=== PATIENT | male | born 1985 | race Caucasian/White ===

== ENCOUNTER → 2016-02-21 | Outpatient (CLI) | payer BC ==
--- NOTE | 2016-02-21 17:27 | CT ---
EXAMINATION TYPE: CT chest wo con DATE OF EXAM: 02/21/2016 1:59 PM COMPARISON: NONE HISTORY: chronic obstructive asthma CT DLP: 169.1 mGycm, Automated exposure control for dose reduction was used. CONTRAST: None TECHNIQUE: Axial images were obtained at 5 mm thick sections. Reconstructed images are reviewed on [employer] computer in the coronal plane. FINDINGS: Portion of the thyroid visualized is normal. No suspicious lung nodules or focal infiltrates are present. Emphysematous changes appear to be present. Some thickening of the bronchi may be present which can b e compatible with chronic asthma. No discrete masses are evident. No suspicious nodules are identifie d. No enlarged mediastinal or hilar adenopathy is evident. The ascending aorta diameter at the level o f the main pulmonary artery is 2.7 cm. The main pulmonary artery diameter at the bifurcation is 2.[address] sections are obtained through the upper abdomen. Abdomen is essentially unremarkable. IMPRESSIONS: 1. Obstructive lung findings
== END | disposition home or self-care (01) ==
LOC: CPPFTMAIN 13:03
PROVIDERS: ATTEND Family Medicine
DX: J44.9 Chronic obstructive pulmonary disease, unspecified (principal); F17.200 Nicotine dependence, unspecified, uncomplicated
CPT/HCPCS: 71250; 94060; 94726; 94729

== ENCOUNTER 2016-07-20 11:55 | Emergency (ER) | payer BC ==
[2016-07-20 11:59] VITALS: BP 143/90; TEMP 98.8
[2016-07-20] MEDS ORDERED: IPRATROPIUM-ALBUTEROL 3 ML NEB INHALATION STA (13:20)
[2016-07-20 13:28] VITALS: RESP 20
--- NOTE | 2016-07-20 13:34 | XR ---
EXAMINATION TYPE: XR chest 2V DATE OF EXAM: 07/20/2016 COMPARISON: Chest x-ray 12/12/[address] 02/21/2016 HISTORY: Cough and pain TECHNIQUE: Frontal and lateral views of the chest are obtained. FINDINGS: There is no focal air space opacity, pleural effusion, or pneumothorax seen. The cardiac silhouette size is within normal limits. There are prominent lung volumes compatible with emphysema. The osseous structures are intact. IMPRESSION: No acute cardiopulmonary process.
--- NOTE | 2016-07-20 13:45 | ED ---
SOB HPI - General Chief Complaint: Shortness of Breath Stated Complaint: congestion Time Seen by Provider: 07/20/16 13:13 Source: patient, RN notes reviewed Mode of arrival: ambulatory Limitations: no limitations - History of Present Illness Initial Comments: 30-year-old male presents emergency Department chief complaint shortness of breath. Patient states she has asthma and has been coughing and having increased shortness breath over the last few days. Patient states she had a fever 101.5 last night. Patient states she also has a sore throat. Patient denies any sinus congestion, ear pain. Patient had no sick contacts. Patient continues to smoke even though he has asthma. He does have relief of his shortness of breath with his inhaler. Patient states that he tried some over- the-counter cough medication no relief. - Related Data Home Medications Medication Instructions Recorded Confirmed Albuterol Inhaler [Ventolin Hfa 2 puff INHALATION RT-Q6H PRN 01/24/16 01/24/16 Inhaler] Ranitidine HCl [Zantac] 75 mg PO BID 01/24/16 01/24/16 Previous Rx's Medication Instructions Recorded oxyCODONE ER [OxyCONTIN] 10 mg PO Q12HR PRN #10 tab 01/25/16 Azithromycin [Zithromax Z-pack] 0 mg PO DIRECTED #1 pack 07/20/16 methylPREDNISolone [Medrol Dose 4 mg PO DIRECTED #1 pack 07/20/16 Pack] Allergies Allergy/AdvReac Type Severity Reaction Status Date / Time meperidine HCl [From Demerol] Allergy Rash/Hives Verified 07/20/16 11:59 Review of Systems ROS Statement: Those systems with pertinent positive or pertinent negative responses have been documented in the HPI. ROS Other: All systems not noted in ROS Statement are negative. Past Medical History Past Medical History: Asthma, COPD Additional Past Medical History / Comment(s): hep c History of Any Multi-Drug Resistant Organisms: None Reported Past Surgical History: Cholecystectomy, Tonsillectomy Past Psychological History: No Psychological Hx Reported Smoking Status: Current every day smoker Past Alcohol Use History: None Reported Past Drug Use History: None Reported General Exam Limitations: no limitations General appearance: alert, in no apparent distress Head exam: Present: atraumatic, normocephalic, normal inspection Eye exam: Present: normal appearance, PERRL, EOMI. Absent: scleral icterus, conjunctival injection, periorbital swelling ENT exam: Present: mucous membranes moist, TM's normal bilaterally, normal external ear exam. Absent: normal exam, normal oropharynx (Mild erythema posterior pharynx) Neck exam: Present: normal inspection, full ROM. Absent: tenderness, meningismus, lymphadenopathy Respiratory exam: Present: wheezes. Absent: normal lung sounds bilaterally, respiratory distress, rales, rhonchi, stridor Cardiovascular Exam: Present: regular rate, normal rhythm, normal heart sounds. Absent: systolic murmur, diastolic murmur, rubs, gallop, clicks Neurological exam: Present: alert, oriented X3, CN II-XII intact Skin exam: Present: warm, dry, intact, normal color. Absent: rash Course Vital Signs 07/20/16 07/20/16 11:56 13:27 Temperature 98.8 F Pulse Rate 92 85 Respiratory 18 20 Rate Blood Pressure 143/90 O2 Sat by Pulse 93 L 95 Oximetry Medical Decision Making - Medical Decision Making 30-year-old male presented for shortness breath, sore throat. Patient was given DuoNeb treatment in emergency department. He does feel improved after this. Patient's strep is negative this time. Patient was treated for acute asthma exacerbation with bronchitis. Patient was started on azithromycin, steroids. Patient is requesting cough syrup and which she'll be given promethazine with codeine. Return parameters were discussed. Patient counseled in detail greater than 3 months for smoking cessation. - Lab Data Lab Results 07/20/16 Range/Units 12:45 Group A Strep Rapid Negative (Negative) Disposition Clinical Impression: Asthmatic bronchitis, Acute pharyngitis Disposition: HOME SELF-CARE Condition: Stable Instructions: Acute Bronchitis (ED) Additional Instructions: Please return to the Emergency Department if symptoms worsen or any other concerns. Please stop smoking Prescriptions: Azithromycin [Zithromax Z-pack] 0 mg PO DIRECTED #1 pack methylPREDNISolone [Medrol Dose Pack] 4 mg PO DIRECTED #1 pack Referrals: Ashli Olivera MD [Primary Care Provider] - 1-2 days Time of Disposition: 13:45
[2016-07-20 13:51] VITALS: PULSE 84
== END 2016-07-20 13:50 | disposition home or self-care (01) ==
LOC: EC 11:55
DX: J45.909 Unspecified asthma, uncomplicated (principal); J02.9 Acute pharyngitis, unspecified; F17.200 Nicotine dependence, unspecified, uncomplicated; Z88.5 Allergy status to narcotic agent; Z79.899 Other long term (current) drug therapy
CPT/HCPCS: 71020; 87081; 87430; 94640; 99285

== ENCOUNTER → 2016-09-11 | Outpatient (CLI) | payer BC ==
[2016-09-11 11:09] LABS: Basophils % (A) 0 %; CH 30.5; CHCM 35.5; Eosinophils # (A) 0.1 k/uL (0-0.7); Eosinophils % (A) 2 %; HCT 47.5 % (39.0-53.0); HGB 16.6 gm/dL (13.0-17.5); Luc # (Auto) 0.12; Luc % (Auto) 2; Lymphocytes # (A) 1.8 k/uL (1.0-4.8); Lymphocytes % (A) 33 %; MCH 30.1 pg (25.0-35.0); MCHC 34.9 g/dL (31.0-37.0); MCV 86.3 fL (80.0-100.0); Mean Platelet Volume 7.7; Monocytes # (A) 0.4 k/uL (0-1.0); Monocytes % (A) 6 %; Neutrophils # (A) 3.1 k/uL (1.3-7.7); Neutrophils % (A) 56 %; RBC 5.51 m/uL (4.30-5.90); WBC 5.5 k/uL (3.8-10.6); WBC (Perox) 5.34
[2016-09-11 11:41] LABS: Bilirubin, Delta 0.3 mg/dL (0.0-0.2); Total Bilirubin 0.5 mg/dL (0.2-1.3); Total Protein 7.1 g/dL (6.3-8.2)
== END | disposition home or self-care (01) ==
LOC: LABWHC1 10:08
PROVIDERS: ATTEND Physician Assistant
DX: B18.2 Chronic viral hepatitis C (principal)
CPT/HCPCS: 36415; 80076; 85025; 87522

== ENCOUNTER → 2016-10-17 | Outpatient (CLI) | payer BC | LOC: LABWHC1 10:17 | PROVIDERS: ATTEND Physician Assistant | DX: B18.2 Chronic viral hepatitis C (principal) | CPT/HCPCS: 36415 ==

== ENCOUNTER 2016-12-10 21:19 | Emergency (ER) | payer BC ==
[2016-12-10 21:23] VITALS: BP 168/103; PULSE 91; RESP 16; TEMP 98.3
[2016-12-10] MEDS ORDERED: KETOROLAC 30 MG/ML 1 ML VIAL IM STA (22:00)
--- NOTE | 2016-12-10 22:08 | ED ---
Back Pain HPI - General Chief Complaint: Back Pain/Injury Stated Complaint: Back Pain Time Seen by Provider: 12/10/16 21:57 Source: patient, RN notes reviewed Limitations: no limitations - History of Present Illness Initial Comments: This is a 31-year-old male who presents to the emergency department with chief complaint of acute on chronic back pain. Patient denies any specific injury or trauma. He reports that when he woke up this morning the thoracic region of his back was painful. He describes the pain as sharp and is made worse with movement. Patient denies any numbness or tingling to lower extremities. He denies saddle paresthesias and loss of bladder or bowel function. He denies IV drug use. Denies fever, chills, chest pain, shortness of breath, abdominal pain , nausea or vomiting, constipation or diarrhea, dysuria or hematuria, numbness or tingling, headache or vision changes. - Related Data Home Medications Medication Instructions Recorded Confirmed Albuterol Inhaler [Ventolin Hfa 2 puff INHALATION RT-Q6H PRN 01/24/16 01/24/16 Inhaler] Ranitidine HCl [Zantac] 75 mg PO BID 01/24/16 01/24/16 Previous Rx's Medication Instructions Recorded oxyCODONE ER [OxyCONTIN] 10 mg PO Q12HR PRN #10 tab 01/25/16 Azithromycin [Zithromax Z-pack] 0 mg PO DIRECTED #1 pack 07/20/16 Promethaz-Cod 6.25-10 mg/5 ml 5 ml PO Q6HR PRN #120 ml 07/20/16 [Phenergan with Codeine] methylPREDNISolone [Medrol Dose 4 mg PO DIRECTED #1 pack 07/20/16 Pack] Ibuprofen 600 mg PO Q6HR #30 tablet 12/10/16 Allergies Allergy/AdvReac Type Severity Reaction Status Date / Time meperidine HCl [From Demerol] Allergy Rash/Hives Verified 12/10/16 21:23 Review of Systems ROS Statement: Those systems with pertinent positive or pertinent negative responses have been documented in the HPI. ROS Other: All systems not noted in ROS Statement are negative. Past Medical History Past Medical History: Asthma, COPD Additional Past Medical History / Comment(s): hep c History of Any Multi-Drug Resistant Organisms: None Reported Past Surgical History: Cholecystectomy, Tonsillectomy Past Psychological History: No Psychological Hx Reported Smoking Status: Current every day smoker Past Alcohol Use History: None Reported Past Drug Use History: None Reported General Exam - General Exam Comments Initial Comments: General: Awake and alert, well-developed; in no apparent distress. Hunched over on ED stretcher. HEENT: Head atraumatic, normocephalic. Pupils are equal, round and reactive to light. Extraocular movements intact. Neck: Supple. Normal ROM. Cardiovascular: Regular rate and rhythm. No murmurs, rubs or gallops. Chest symmetrical. Respiratory: Lungs clear to auscultation bilaterally. No wheezes, rales or rhonchi. Normal respiratory effort with no use of accessory muscles. Musculoskeletal: Bony point tenderness with palpation of the thoracic vertebrae. No paraspinous muscle tenderness. Intact active range of motion, however pain is elicited with flexion and extension. Pulses 2+ equal and palpable bilaterally. Skin: [place], warm and dry without rashes or lesions. Neurological: Alert and oriented x3. CN II-XII grossly intact. Speech is fluent and answers are appropriate. No focal neuro deficits. Psychiatric: Normal mood and affect. No overt signs of depression or anxiety noted. Limitations: no limitations Course Vital Signs 12/10/16 21:20 Temperature 98.3 F Pulse Rate 91 Respiratory 16 Rate Blood Pressure 168/103 O2 Sat by Pulse 98 Oximetry Medical Decision Making - Medical Decision Making This is a 31-year-old male who presents to the emergency department with chief complaint of acute on chronic back pain. Thoracic vertebrate x-ray reveals no acute abnormalities. Case was discussed with attending physician, Dr. Romeo. Patient was made aware of findings. He will be discharged home with prescription for ibuprofen 600mg. He is to follow-up with his family doctor within 1-2 days. He is in no acute distress at this time and is in agreement to the plan. All questions were answered. - Radiology Data Radiology results: report reviewed Thoracic spine findings: The thoracic vertebrae have fairly normal alignment. Posterior elements are intact. There is no paraspinal mass. I see no compression fracture. Impression: Negative thoracic spine exam. Minimal spurring noted. Disposition Clinical Impression: Thoracic back pain Disposition: HOME SELF-CARE Condition: Good Instructions: Back Pain (ED) Additional Instructions: Please take medications as prescribed. Please follow up with primary care provider within 1-2 days. Return to emergency department if symptoms should worsen or any concerns arise. Prescriptions: Ibuprofen 600 mg PO Q6HR #30 tablet Referrals: Ahsli Olivera MD [Primary Care Provider] - 1-2 days Time of Disposition: 22:41
--- NOTE | 2016-12-10 22:33 | XR ---
EXAMINATION TYPE: XR thoracic spine 2V DATE OF EXAM: 12/10/2016 COMPARISON: NONE HISTORY: Back pain TECHNIQUE: 4 views FINDINGS: The thoracic vertebra have fairly normal alignment. Posterior elements are intact. There is no paraspinal mass. I see no compression fracture. IMPRESSION: Negative thoracic spine exam. Minimal spurring noted.
== END 2016-12-10 22:48 | disposition home or self-care (01) ==
LOC: EC 21:19
DX: M54.6 Pain in thoracic spine (principal); F17.200 Nicotine dependence, unspecified, uncomplicated; Z79.899 Other long term (current) drug therapy; Z88.5 Allergy status to narcotic agent
CPT/HCPCS: 72070; 99283; 96372; J1885

== ENCOUNTER → 2017-02-20 | Outpatient (CLI) | payer BC ==
[2017-02-20 15:49] LABS: Basophils % (A) 0 %; Eosinophils # (A) 0.2 k/uL (0-0.7); Eosinophils % (A) 2 %; HCT 51.5 % (39.0-53.0); HGB 17.1 gm/dL (13.0-17.5); Lymphocytes # (A) 3.3 k/uL (1.0-4.8); Lymphocytes % (A) 41 %; MCH 29.5 pg (25.0-35.0); MCHC 33.3 g/dL (31.0-37.0); MCV 88.6 fL (80.0-100.0); Mean Platelet Volume 7.4; Monocytes # (A) 0.5 k/uL (0-1.0); Monocytes % (A) 7 %; Neutrophils # (A) 3.9 k/uL (1.3-7.7); Neutrophils % (A) 48 %; Platelet Count 220 k/uL (150-450); RBC 5.81 m/uL (4.30-5.90); RDW 14.4 % (11.5-15.5)
[2017-02-20 16:00] LABS: Albumin 4.6 g/dL (3.5-5.0); Bilirubin, Delta 0.2 mg/dL (0.0-0.2); Bilirubin,Unconjugated 0.2 mg/dL (0.0-1.1); Total Bilirubin 0.4 mg/dL (0.2-1.3); Total Protein 7.8 g/dL (6.3-8.2)
[2017-02-21 14:57] LABS: Hepatits C Virus RNA Not detected (Not detected); Hepatits C Virus RNA, Quant <12 IU/mL (<12); LOG HCV IU/mL <1.08 (<1.08)
== END | disposition home or self-care (01) ==
LOC: LABWHC1 14:59
PROVIDERS: ATTEND Physician Assistant
DX: B18.2 Chronic viral hepatitis C (principal)
CPT/HCPCS: 36415; 80076; 85025; 87522

== ENCOUNTER 2017-04-01 06:26 | Emergency (ER) | payer BC ==
[2017-04-01 06:33] VITALS: PULSE 75
[2017-04-01] MEDS ORDERED: ONDANSETRON 4 MG/2 ML VIAL IVP STA (06:42)
[2017-04-01] MEDS ORDERED: SODIUM CHLORIDE 0.9% 500 ML IV STA (06:42)
[2017-04-01] MEDS ORDERED: MAG HYDROX/AL HYDROX/SIMETH 30 ML, HYOSCYAMINE ELIXIR 10 ML, CIMETIDINE HCL 300 MG, LID... PO STA ×4 (06:43)
--- NOTE | 2017-04-01 06:47 | ED ---
General Adult HPI - General Source: patient, RN notes reviewed Mode of arrival: ambulatory Limitations: no limitations <Ulisses Spicer - Last Filed: 04/01/17 06:48> <Rob Romeo - Last Filed: 04/01/17 08:39> - General Chief complaint: Abdominal Pain Stated complaint: ABDOMINAL PAIN, HEARTBURN Time Seen by Provider: 04/01/17 06:30 - History of Present Illness Initial comments: This is a 31-year-old male presents emergency Department complaining of having epigastric abdominal pain and heartburn for a year. Patient states about 6 months ago he saw a senior underwriting assistant who gave him Prilosec is been taking ever since. Patient states he still doesn't help he still gets intermittent abdominal pain. Patient denies any vomiting but has had nausea. Patient denies any lower abdominal pain. Patient states the epigastric pain does not radiate anywhere. Patient denies any chest pain palpitations difficulty breathing or shortness of breath. Patient denies any recent fever chills. (Ulisses Spicer) - Related Data Home Medications Medication Instructions Recorded Confirmed Albuterol Inhaler [Ventolin Hfa 1 - 2 puff INHALATION RT-Q6H PRN 01/24/16 Inhaler] Omeprazole [PriLOSEC] 20 mg PO AC-BRKFST 04/01/17 04/01/17 Varenicline [Chantix Starter Pack] 0.5 mg PO DIRECTED 04/01/17 04/01/17 Allergies Allergy/AdvReac Type Severity Reaction Status Date / Time meperidine HCl [From Demerol] Allergy Rash/Hives Verified 04/01/17 07:23 Review of Systems ROS Other: All systems not noted in ROS Statement are negative. <Ulisses Spicer - Last Filed: 04/01/17 06:48> ROS Other: All systems not noted in ROS Statement are negative. <Rob Romeo - Last Filed: 04/01/17 08:39> ROS Statement: Those systems with pertinent positive or pertinent negative responses have been documented in the HPI. Past Medical History Past Medical History: Asthma, COPD, GERD/Reflux Additional Past Medical History / Comment(s): hep c (resolved) History of Any Multi-Drug Resistant Organisms: None Reported Past Surgical History: Cholecystectomy, Tonsillectomy Past Psychological History: No Psychological Hx Reported Smoking Status: Current every day smoker Past Alcohol Use History: None Reported Past Drug Use History: None Reported <Ulisses Spicer - Last Filed: 04/01/17 06:48> General Exam Limitations: no limitations <Ulisses Spicer - Last Filed: 04/01/17 06:48> <Rob Romeo - Last Filed: 04/01/17 08:39> - General Exam Comments Initial Comments: GENERAL: Patient is well-developed and well-nourished. Patient is nontoxic and well- hydrated and is in mild distress. ENT: Neck is soft and supple. No significant lymphadenopathy is noted. Oropharynx is clear. Moist mucous membranes. Neck has full range of motion without eliciting any pain. EYES: The sclera were anicteric and conjunctiva were pink and moist. Extraocular movements were intact and pupils were equal round and reactive to light. Eyelids were unremarkable. PULMONARY: Unlabored respirations. Good breath sounds bilaterally. No audible rales rhonchi or wheezing was noted. CARDIOVASCULAR: There is a regular rate and rhythm. ABDOMEN: Patient has minimal epigastric abdominal pain. No palpable organomegaly was noted. There is no palpable pulsatile mass. SKIN: Skin is clear with no lesions or rashes and otherwise unremarkable. NEUROLOGIC: Patient is alert and oriented x3. Cranial nerves II through XII are grossly intact. Motor and sensory are also intact. Normal speech, volume and content. Symmetrical smile. MUSCULOSKELETAL: Normal extremities with adequate strength and full range of motion. LYMPHATICS: No significant lymphadenopathy is noted PSYCHIATRIC: Normal psychiatric evaluation. Normal interpersonal interactions appears functionally intact in deals appropriately with others. No signs of depression. No signs of anxiety. (Ulisses Spicer) Course <Ulisses Spicer - Last Filed: 04/01/17 06:48> <Rob Romeo - Last Filed: 04/01/17 08:39> Vital Signs 04/01/17 06:29 Temperature 97.1 F L Pulse Rate 75 Respiratory 18 Rate Blood Pressure 130/90 O2 Sat by Pulse 98 Oximetry - Reevaluation(s) Reevaluation #1: 04/01/17 08:37 Patient did finally get relief after the GI cocktail and IV Toradol he will be discharged at his request he will follow-up with his doctor. (Rob Romeo) Medical Decision Making <Ulisses Spicer - Last Filed: 04/01/17 06:48> - Lab Data Result diagrams: 04/01/17 07:00 04/01/17 07:00 <Rob Romeo - Last Filed: 04/01/17 08:39> - Medical Decision Making Dr. Romeo be taking over the care of this patient at 7 AM (Ulisses Spicer) - Lab Data Lab Results 04/01/17 04/01/17 Range/Units 07:00 07:00 WBC 7.4 (3.8-10.6) k/uL RBC 5.91 H (4.30-5.90) m/uL Hgb 16.9 (13.0-17.5) gm/dL Hct 51.0 (39.0-53.0) % MCV 86.3 (80.0-100.0) fL MCH 28.6 (25.0-35.0) pg MCHC 33.2 (31.0-37.0) g/dL RDW 12.5 (11.5-15.5) % Plt Count 221 (150-450) k/uL Neutrophils % 48 % Lymphocytes % 40 % Monocytes % 7 % Eosinophils % 3 % Basophils % 1 % Neutrophils # 3.5 (1.3-7.7) k/uL Lymphocytes # 3.0 (1.0-4.8) k/uL Monocytes # 0.5 (0-1.0) k/uL Eosinophils # 0.2 (0-0.7) k/uL Basophils # 0.0 (0-0.2) k/uL Sodium 144 (137-145) mmol/L Potassium 4.5 (3.5-5.1) mmol/L Chloride 105 (98-107) mmol/L Carbon Dioxide 26 (22-30) mmol/L Anion Gap 13 mmol/L BUN 13 (9-20) mg/dL Creatinine 0.75 (0.66-1.25) mg/dL Est GFR (MDRD) Af Amer >60 (>60 ml/min/1.73 sqM) Est GFR (MDRD) Non-Af >60 (>60 ml/min/1.73 sqM) Glucose 108 H (74-99) mg/dL Calcium 10.5 H (8.4-10.2) mg/dL Magnesium 1.9 (1.6-2.3) mg/dL Total Bilirubin 0.5 (0.2-1.3) mg/dL AST 39 (17-59) U/L ALT 36 (21-72) U/L Alkaline Phosphatase 65 (38-126) U/L Total Protein 7.8 (6.3-8.2) g/dL Albumin 4.6 (3.5-5.0) g/dL Amylase 47 (30-110) U/L Lipase 168 (23-300) U/L Disposition <Ulisses Spicer - Last Filed: 04/01/17 06:48> <Rob Romeo - Last Filed: 04/01/17 08:39> Clinical Impression: Gastritis Disposition: HOME SELF-CARE Condition: Good Instructions: Gastritis (ED) Additional Instructions: Continue with your current medications, follow-up with her doctor and with her senior underwriting assistant, continue with smoking cessation Referrals: Ashli Olivera MD [Primary Care Provider] - 1-2 days
[2017-04-01 07:15] LABS: Basophils % (A) 1 %; Eosinophils # (A) 0.2 k/uL (0-0.7); Eosinophils % (A) 3 %; HGB 16.9 gm/dL (13.0-17.5); Lymphocytes % (A) 40 %; MCH 28.6 pg (25.0-35.0); MCHC 33.2 g/dL (31.0-37.0); MCV 86.3 fL (80.0-100.0); Mean Platelet Volume 6.9; Monocytes # (A) 0.5 k/uL (0-1.0); Monocytes % (A) 7 %; Neutrophils # (A) 3.5 k/uL (1.3-7.7); Neutrophils % (A) 48 %; Platelet Count 221 k/uL (150-450); RBC 5.91 m/uL (4.30-5.90); RDW 12.5 % (11.5-15.5); WBC 7.4 k/uL (3.8-10.6)
[2017-04-01 07:25] LABS: ALT 36 U/L (21-72); AST 39 U/L (17-59); Albumin 4.6 g/dL (3.5-5.0); Alkaline Phosphatase 65 U/L (38-126); Amylase 47 U/L (30-110); Anion Gap 13 mmol/L; Blood Urea Nitrogen 13 mg/dL (9-20); Calcium 10.5 mg/dL (8.4-10.2); Carbon Dioxide 26 mmol/L (22-30); Chloride 105 mmol/L (98-107); Glucose 108 mg/dL (74-99); Lipase 168 U/L (23-300); Magnesium 1.9 mg/dL (1.6-2.3); Sodium 144 mmol/L (137-145); Total Bilirubin 0.5 mg/dL (0.2-1.3); Total Protein 7.8 g/dL (6.3-8.2)
[2017-04-01 07:36] LABS: Potassium 4.5 mmol/L (3.5-5.1)
[2017-04-01] MEDS ORDERED: KETOROLAC 30 MG/ML 1 ML VIAL IVP STA (08:16)
[2017-04-01 08:48] VITALS: BP 124/60; RESP 20; TEMP 98.1
== END 2017-04-01 08:49 | disposition home or self-care (01) ==
LOC: EC 06:26
DX: K29.70 Gastritis, unspecified, without bleeding (principal); R12 Heartburn; K21.9 Gastro-esophageal reflux disease without esophagitis; F17.200 Nicotine dependence, unspecified, uncomplicated; Z79.899 Other long term (current) drug therapy; Z88.5 Allergy status to narcotic agent; Z90.49 Acquired absence of other specified parts of digestive tract
CPT/HCPCS: 36415; 80053; 82150; 83690; 83735; 85025; 99284; 96374; 96375; J2405; J1885

== ENCOUNTER 2017-05-21 10:18 | Day surgery (SDC) | payer BC ==
[2017-05-16 11:11] VITALS: BMI 27.4
[2017-05-21 10:48] VITALS: TEMP 98.3
[2017-05-21] MEDS: LACTATED RINGERS 1,000 ML IV SCH ×2 (10:48→11:58)
[2017-05-21] MEDS ORDERED: LIDOCAINE 1% 20 ML VIAL (10MG/ML) FOR IV START INTRADERMA ONE (10:49)
[2017-05-21] MEDS ORDERED: LIDOCAINE 1% INJ 10MG/ML (20 ML MDV) ONE (12:00)
[2017-05-21] MEDS ORDERED: PROPOFOL 10 MG/ML 20 ML VIAL IV ONE (12:00)
[2017-05-21 12:39] VITALS: RESP 16
[2017-05-21 12:47] VITALS: BP 114/71; PULSE 81
--- NOTE | 2017-05-21 18:12 | P.PCN ---
Date of Procedure: 05/21/17 Procedure(s) Performed: Procedure: 1. Esophagogastroduodenoscopy and biopsy. 2. Colonoscopy and polypectomy. Preoperative diagnosis: Intermittent rectal bleeding and chronic reflux symptoms. Postoperative diagnosis: 1. Sliding hiatal hernia with LA grade B distal esophagitis. 2. Mild antral gastritis. 3. Small cecal polyp snared but no large polyps or cancer. 4. Colon and terminal ileum with no evidence of inflammatory bowel disease. 4. Low-grade internal hemorrhoids not bleeding at the time of this exam. Preparation: HalfLytely prep. Sedation: Was provided by anesthesia. Brief clinical history: The patient is a 31-year-old male who is scheduled for this evaluation because of reflux symptoms and intermittent rectal bleeding. The patient is currently on Protonix. No other alarm symptoms or change in his bowels. Procedure: With the patient on his left lateral decubitus position and after informed consent and adequate sedation, I passed the Olympus-GIF 160 video upper endoscope through the cricopharyngeus down the esophagus. GE junction was around 36 cm from the incisors and there was a small sliding hiatal hernia. The distal esophagus showed short linear erosions terminating at the level of the GE junction consistent with LA grade B distal esophagitis. There were no strictures or Hendricks's esophagus. The endoscope was then passed into the stomach which was insufflated with air and inspected in detail including the retroflex view in the cardia. There was some mottling and erythema in the antrum but no ulcers or erosions. Minimal erythema was seen in the duodenum but there were no ulcers erosions or bleeding. I obtained biopsies from the duodenum, antrum and esophagus then the endoscope was withdrawn and I proceeded to do colonoscopy. Perianal area did not show any fissures or fistulas. There were no masses felt on digital rectal examination. The Olympus CFQ 160L video colonoscope was then inserted in the rectum in the usual fashion and advanced to the cecum. I intubated the ileocecal valve and examined the terminal ileum. Terminal ileum and colon did not show any evidence of inflammatory bowel disease. There was a small polyp in the cecum which I snared and retrieved by suction but there were no large polyps or cancer. I retroflexed the endoscope in the rectum before the endoscope was withdrawn. Low-grade internal hemorrhoids were noted but there was no evidence of bleeding. The patient tolerated the procedure well. Plan: The patient was reassured. He will continue antireflux diet and measures and he will continue with his Protonix. I discussed dietary measures and local care for hemorrhoids. Further plans can be made based on his course. I anticipate repeating his colonoscopy in around 5 years. He will follow up with you as planned.
== END 2017-05-21 13:13 | disposition home or self-care (01) ==
LOC: ORWHC2ENDO 10:18
DX: K21.0 Gastro-esophageal reflux disease with esophagitis (principal); K44.9 Diaphragmatic hernia without obstruction or gangrene; K29.70 Gastritis, unspecified, without bleeding; K63.5 Polyp of colon; K64.8 Other hemorrhoids; J44.9 Chronic obstructive pulmonary disease, unspecified; Z86.19 Personal history of other infectious and parasitic diseases; Z88.5 Allergy status to narcotic agent; Z79.899 Other long term (current) drug therapy
CPT/HCPCS: 88305; 45385; 43239; J2001; J2704

== ENCOUNTER → 2017-07-20 | Outpatient (CLI) | payer BC ==
[2017-07-20 11:01] LABS: Basophils % (A) 0 %; Eosinophils # (A) 0.2 k/uL (0-0.7); Eosinophils % (A) 2 %; HCT 51.3 % (39.0-53.0); HGB 17.4 gm/dL (13.0-17.5); Lymphocytes # (A) 2.6 k/uL (1.0-4.8); Lymphocytes % (A) 38 %; MCH 28.5 pg (25.0-35.0); MCV 83.9 fL (80.0-100.0); Mean Platelet Volume 6.8; Monocytes # (A) 0.3 k/uL (0-1.0); Monocytes % (A) 4 %; Neutrophils # (A) 3.6 k/uL (1.3-7.7); Neutrophils % (A) 53 %; Platelet Count 225 k/uL (150-450); RBC 6.11 m/uL (4.30-5.90); RDW 12.9 % (11.5-15.5); WBC 6.8 k/uL (3.8-10.6)
[2017-07-20 11:10] LABS: Albumin 4.5 g/dL (3.5-5.0); Bilirubin, Delta 0.2 mg/dL (0.0-0.2); Bilirubin,Unconjugated 0.3 mg/dL (0.0-1.1); Total Bilirubin 0.5 mg/dL (0.2-1.3); Total Protein 7.5 g/dL (6.3-8.2)
[2017-07-22 14:48] LABS: Hepatits C Virus RNA Not detected (Not detected); Hepatits C Virus RNA, Quant <12 IU/mL (<12); LOG HCV IU/mL <1.08 (<1.08)
== END | disposition home or self-care (01) ==
LOC: LABWHC1 10:46
PROVIDERS: ATTEND Physician Assistant
DX: B18.2 Chronic viral hepatitis C (principal)
CPT/HCPCS: 36415; 80076; 85025; 87522

== ENCOUNTER → 2017-11-09 | Outpatient (CLI) | payer BC ==
[2017-11-09 10:32] LABS: Basophils % (A) 1 %; Eosinophils # (A) 0.3 k/uL (0-0.7); Eosinophils % (A) 3 %; HCT 48.9 % (39.0-53.0); Lymphocytes # (A) 2.9 k/uL (1.0-4.8); Lymphocytes % (A) 38 %; MCH 29.1 pg (25.0-35.0); MCHC 34.8 g/dL (31.0-37.0); MCV 83.8 fL (80.0-100.0); Mean Platelet Volume 7.2; Monocytes # (A) 0.4 k/uL (0-1.0); Monocytes % (A) 6 %; Neutrophils # (A) 3.8 k/uL (1.3-7.7); Neutrophils % (A) 50 %; Platelet Count 229 k/uL (150-450); RBC 5.84 m/uL (4.30-5.90); RDW 13.1 % (11.5-15.5); WBC 7.5 k/uL (3.8-10.6)
[2017-11-09 10:47] LABS: ALT 29 U/L (21-72); AST 33 U/L (17-59); Albumin 4.5 g/dL (3.5-5.0); Alkaline Phosphatase 97 U/L (38-126); Anion Gap 11 mmol/L; Blood Urea Nitrogen 12 mg/dL (9-20); Calcium 9.9 mg/dL (8.4-10.2); Carbon Dioxide 23 mmol/L (22-30); Chloride 109 mmol/L (98-107); Cholesterol 172 mg/dL (<200); Glucose 94 mg/dL (74-99); HDL Cholesterol 26 mg/dL (40-60); LDL Cholesterol,Calculated 114 mg/dL (0-99); Potassium 4.1 mmol/L (3.5-5.1); Sodium 143 mmol/L (137-145); Total Bilirubin 0.6 mg/dL (0.2-1.3); Total Protein 7.8 g/dL (6.3-8.2); Triglycerides 161 mg/dL (<150)
== END | disposition home or self-care (01) ==
LOC: LABWHC1 09:45
PROVIDERS: ATTEND Family Medicine
DX: J44.9 Chronic obstructive pulmonary disease, unspecified (principal); F41.8 Other specified anxiety disorders; B18.2 Chronic viral hepatitis C; F17.219 Nicotine dependence, cigarettes, with unspecified nicotine-induced disorders; R12 Heartburn; Z13.220 Encounter for screening for lipoid disorders
CPT/HCPCS: 36415; 80053; 80061; 84443; 85025

== ENCOUNTER → 2017-12-13 | Outpatient (CLI) | payer BC | END | disposition home or self-care (01) | LOC: LABWHC1 09:27 | PROVIDERS: ATTEND Family Medicine | DX: R05 Cough (principal); R50.9 Fever, unspecified | CPT/HCPCS: 87502 ==

== ENCOUNTER 2018-07-31 21:53 | Emergency (ER) | payer BC ==
[2018-07-31 21:57] VITALS: RESP 16; TEMP 98.2
[2018-07-31] MEDS ORDERED: SODIUM CHLORIDE 0.9% 1,000 ML IV STA (22:15)
[2018-07-31] MEDS ORDERED: ACETAMINOPHEN TAB 325 MG TAB PO STA (22:30)
[2018-07-31] MEDS ORDERED: ONDANSETRON 4 MG/2 ML VIAL IVP STA (22:30)
[2018-07-31 22:45] LABS: Appearance,Urine Clear (Clear); Bilirubin,Urine Negative (Negative); Blood,Urine Negative (Negative); Color,Urine Yellow; Glucose,Urine (UA) Negative (Negative); Ketones,Urine Negative (Negative); Leukocyte Esterase,Urine Negative (Negative); Nitrite,Urine Negative (Negative); PH, Urine 6.5 (5.0-8.0); Protein,Urine Negative (Negative); Specific Gravity,Urine 1.012 (1.001-1.035); Urobilinogen,Urine <2.0 mg/dL (<2.0)
[2018-07-31 22:46] LABS: Basophils % (A) 1 %; Eosinophils # (A) 0.2 k/uL (0-0.7); Eosinophils % (A) 2 %; HCT 51.2 % (39.0-53.0); HGB 17.2 gm/dL (13.0-17.5); Lymphocytes # (A) 2.3 k/uL (1.0-4.8); Lymphocytes % (A) 34 %; MCH 28.2 pg (25.0-35.0); MCHC 33.6 g/dL (31.0-37.0); MCV 83.9 fL (80.0-100.0); Mean Platelet Volume 6.8; Monocytes # (A) 0.4 k/uL (0-1.0); Monocytes % (A) 6 %; Neutrophils # (A) 3.8 k/uL (1.3-7.7); Neutrophils % (A) 55 %; Platelet Count 239 k/uL (150-450); RDW 12.9 % (11.5-15.5); WBC 6.9 k/uL (3.8-10.6)
--- NOTE | 2018-07-31 22:46 | ED ---
General Adult HPI - General Chief complaint: Abdominal Pain Stated complaint: Abd pain Time Seen by Provider: 07/31/18 22:15 Source: patient, RN notes reviewed, old records reviewed Mode of arrival: ambulatory Limitations: no limitations - History of Present Illness Initial comments: 32-year-old male patient past medical history of hepatitis C resolved with treatment, status post cholecystectomy presents ED with approximately one day of right upper quadrant pain. Patient reports he also has associated nausea without emesis. Patient denies any other complaints at this time. Denies chest pain shortness of breath. Patient describes the pain as a stabbing pain which waxes and wanes. Denies any association with food. Systemic: Pt denies fatigue, fever/chills, rash. Pt denies weakness, night sweats, weight loss. Neuro: Pt denies headache, visual disturbances, syncope or pre-syncope. HEENT: Pt denies ocular discharge or irritation, otalgia, rhinorrhea, pharyngitis or notable lymphadenopathy. Cardiopulmonary: Pt denies chest pain, SOB, heart palpitations, dyspnea on exertion. Abdominal/GI: Pt denies abdominal pain, n/v/d. : Pt denies dysuria, burning w/ urination, frequency/urgency. Denies new onset urinary or bowel incontinence. MSK: Pt denies myalgia, loss of strength or function in extremities. Neuro: Pt denies new onset weakness, paresthesias. - Related Data Home Medications Medication Instructions Recorded Confirmed Pantoprazole Sodium [Protonix] 40 mg PO HS 05/16/17 05/21/17 Allergies Allergy/AdvReac Type Severity Reaction Status Date / Time meperidine HCl [From Demerol] Allergy Rash/Hives Verified 07/31/18 21:57 Review of Systems ROS Statement: Those systems with pertinent positive or pertinent negative responses have been documented in the HPI. ROS Other: All systems not noted in ROS Statement are negative. Past Medical History Past Medical History: Asthma, COPD, GERD/Reflux Additional Past Medical History / Comment(s): hep c (resolved) History of Any Multi-Drug Resistant Organisms: None Reported Past Surgical History: Cholecystectomy, Tonsillectomy Past Anesthesia/Blood Transfusion Reactions: No Reported Reaction Past Psychological History: No Psychological Hx Reported Smoking Status: Current every day smoker Past Alcohol Use History: None Reported Past Drug Use History: None Reported - Past Family History Mother Family Medical History: No Reported History General Exam - General Exam Comments Initial Comments: Constitutional: NAD, AOX3, Pt has pleasant affect. HEENT: NC/AT, trachea midline, neck supple, no lymphadenopathy. Posterior pharynx non erythematous, without exudates. External ears appear normal, without discharge. Mucous membranes moist. Eyes PERRLA, EOM intact. There is no scleral icterus. No pallor noted. Cardiopulmonary: RRR, no murmurs, rubs or gallops, no JVD noted. Lungs CTAB in anterior and posterior xavier. No peripheral edema. Abdominal exam: Abdomen soft and non-distended. Abdomen mildly tender to palpation in right upper quadrant region. Carmona sign negative. No guarding or rigidity no ecchymoses. Bowel sounds active in LLQ.. No ecchymosis Neuro: CN II-XII grossly intact. No nuchal rigidity. No raccon eyes, no teran sign, no hemotympanum. No cervical spinal tenderness. MSK: No posterior calf tenderness bilaterally, homans sign negative bilaterally. Posterior tibialis and radial pulse +2 bilaterally. Sensation intact in upper and lower extremities. Full active ROM in upper and lower extremities, 5/5 stregnth. Limitations: no limitations Course Vital Signs 07/31/18 21:56 Temperature 98.2 F Pulse Rate 78 Respiratory 16 Rate Blood Pressure 148/92 O2 Sat by Pulse 98 Oximetry Medical Decision Making - Medical Decision Making 32-year-old male patient past medical history of hepatitis C resolved with treatment, status post cholecystectomy presents ED with approximately one day of right upper quadrant pain. Patient reports he also has associated nausea without emesis. Patient denies any other complaints at this time. Denies chest pain shortness of breath. Patient describes the pain as a stabbing pain which waxes and wanes. Denies any association with food. Patient vital signs stable, afebrile. Physical exam displayed: Abdomen soft and non-distended. Abdomen mildly tender to palpation in right upper quadrant region. Carmona sign negative. No guarding or rigidity no ecchymoses. Bowel sounds active in LLQ.. No ecchymosis laboratory investigations revealed non-impressive CBC, CMP. Lipase within normal limits. Lactic acid 1.1. UA negative. CT abdomen and pelvis displayed crushable wall thickening of the distal descending colon and sigmoid colon otalgia secondary to under distention versus nonspecific colitis. Patient discharged with outpatient follow-up with primary care provider. Patient return if condition worsens. Case discussed with Dr. Tabor - Lab Data Result diagrams: 07/31/18 22:21 07/31/18 22:21 Lab Results 07/31/18 07/31/18 07/31/18 Range/Units 22:21 22:21 22:21 WBC 6.9 (3.8-10.6) k/uL RBC 6.10 H (4.30-5.90) m/uL Hgb 17.2 (13.0-17.5) gm/dL Hct 51.2 (39.0-53.0) % MCV 83.9 (80.0-100.0) fL MCH 28.2 (25.0-35.0) pg MCHC 33.6 (31.0-37.0) g/dL RDW 12.9 (11.5-15.5) % Plt Count 239 (150-450) k/uL Neutrophils % 55 % Lymphocytes % 34 % Monocytes % 6 % Eosinophils % 2 % Basophils % 1 % Neutrophils # 3.8 (1.3-7.7) k/uL Lymphocytes # 2.3 (1.0-4.8) k/uL Monocytes # 0.4 (0-1.0) k/uL Eosinophils # 0.2 (0-0.7) k/uL Basophils # 0.0 (0-0.2) k/uL Sodium 141 (137-145) mmol/L Potassium 4.4 (3.5-5.1) mmol/L Chloride 107 (98-107) mmol/L Carbon Dioxide 24 (22-30) mmol/L Anion Gap 10 mmol/L BUN 13 (9-20) mg/dL Creatinine 1.02 (0.66-1.25) mg/dL Est GFR (CKD-EPI)AfAm >90 (>60 ml/min/1.73 sqM) Est GFR (CKD-EPI)NonAf >90 (>60 ml/min/1.73 sqM) Glucose 79 (74-99) mg/dL Plasma Lactic Acid Arturo (0.7-2.0) mmol/L Calcium 9.3 (8.4-10.2) mg/dL Total Bilirubin 0.4 (0.2-1.3) mg/dL AST 42 (17-59) U/L ALT 32 (21-72) U/L Alkaline Phosphatase 99 (38-126) U/L Total Protein 8.0 (6.3-8.2) g/dL Albumin 4.7 (3.5-5.0) g/dL Lipase 215 (23-300) U/L Urine Color Yellow Urine Appearance Clear (Clear) Urine pH 6.5 (5.0-8.0) Ur Specific [place] 1.012 (1.001-1.035) Urine Protein Negative (Negative) Urine Glucose (UA) Negative (Negative) Urine Ketones Negative (Negative) Urine Blood Negative (Negative) Urine Nitrite Negative (Negative) Urine Bilirubin Negative (Negative) Urine Urobilinogen <2.0 (<2.0) mg/dL Ur Leukocyte Esterase Negative (Negative) 07/31/18 Range/Units 22:21 WBC (3.8-10.6) k/uL RBC (4.30-5.90) m/uL Hgb (13.0-17.5) gm/dL Hct (39.0-53.0) % MCV (80.0-100.0) fL MCH (25.0-35.0) pg MCHC (31.0-37.0) g/dL RDW (11.5-15.5) % Plt Count (150-450) k/uL Neutrophils % % Lymphocytes % % Monocytes % % Eosinophils % % Basophils % % Neutrophils # (1.3-7.7) k/uL Lymphocytes # (1.0-4.8) k/uL Monocytes # (0-1.0) k/uL Eosinophils # (0-0.7) k/uL Basophils # (0-0.2) k/uL Sodium (137-145) mmol/L Potassium (3.5-5.1) mmol/L Chloride (98-107) mmol/L Carbon Dioxide (22-30) mmol/L Anion Gap mmol/L BUN (9-20) mg/dL Creatinine (0.66-1.25) mg/dL Est GFR (CKD-EPI)AfAm (>60 ml/min/1.73 sqM) Est GFR (CKD-EPI)NonAf (>60 ml/min/1.73 sqM) Glucose (74-99) mg/dL Plasma Lactic Acid Arturo 1.1 (0.7-2.0) mmol/L Calcium (8.4-10.2) mg/dL Total Bilirubin (0.2-1.3) mg/dL AST (17-59) U/L ALT (21-72) U/L Alkaline Phosphatase (38-126) U/L Total Protein (6.3-8.2) g/dL Albumin (3.5-5.0) g/dL Lipase (23-300) U/L Urine Color Urine Appearance (Clear) Urine pH (5.0-8.0) Ur Specific [place] (1.001-1.035) Urine Protein (Negative) Urine Glucose (UA) (Negative) Urine Ketones (Negative) Urine Blood (Negative) Urine Nitrite (Negative) Urine Bilirubin (Negative) Urine Urobilinogen (<2.0) mg/dL Ur Leukocyte Esterase (Negative) Disposition Clinical Impression: Abdominal pain Disposition: HOME SELF-CARE Condition: Stable Instructions (If sedation given, give patient instructions): Abdominal Pain (ED) Additional Instructions: Patient to adhere to previously discussed treatment plan and will take medication(s) as directed. Patient to follow up with PCP in 1-2 days. Patient to return to ED if symptoms do not improve. Follow-up with primary care provider in 1-2 days. Return to ER if condition worsens in any way. Is patient prescribed a controlled substance at d/c from ED?: No Referrals: Ashli Olivera MD [Primary Care Provider] - 1-2 days
[2018-07-31 22:52] LABS: ALT 32 U/L (21-72); AST 42 U/L (17-59); African American GFR (CKD) >90 (>60 ml/min/1.73 sqM); Albumin 4.7 g/dL (3.5-5.0); Alkaline Phosphatase 99 U/L (38-126); Anion Gap 10 mmol/L; Blood Urea Nitrogen 13 mg/dL (9-20); Calcium 9.3 mg/dL (8.4-10.2); Carbon Dioxide 24 mmol/L (22-30); Chloride 107 mmol/L (98-107); Glucose 79 mg/dL (74-99); Lipase 215 U/L (23-300); Potassium 4.4 mmol/L (3.5-5.1); Sodium 141 mmol/L (137-145); Total Bilirubin 0.4 mg/dL (0.2-1.3)
--- NOTE | 2018-07-31 23:29 | CT ---
EXAM: CT Abdomen and Pelvis With Intravenous Contrast CLINICAL HISTORY: Pain TECHNIQUE: Axial computed tomography images of the abdomen and pelvis with intravenous contrast. CTDI is 0.085, 0.085, 7.6, 8 mGy and DLP is 633.2 mGy-cm. This CT exam was performed using one or more of the following dose reduction techniques: automated exposure control, adjustment of the mA and/or kV according to patient size, and/or use of iterative reconstruction technique. COMPARISON: CT abdomen and pelvis dated 01/24/2016 FINDINGS: Lung bases: Centrilobular emphysema, advanced for patients age. ABDOMEN: Liver: Decreased attenuation of the liver which may be phase of IV contrast versus hepatic steatosis. Gallbladder and bile ducts: Gallbladder is surgically absent. Pancreas: Unremarkable. Spleen: Unremarkable. Adrenals: Unremarkable. Kidneys and ureters: Unremarkable. Stomach and bowel: Question wall thickening of the distal descending colon and sigmoid colon which may be secondary underdistention versus a nonspecific colitis. Noninflamed colonic diverticulosis. PELVIS: Appendix: Appendix is unremarkable. Bladder: Unremarkable. Reproductive: Unremarkable as visualized. ABDOMEN and PELVIS: Intraperitoneal space: Unremarkable. Bones/joints: No acute fracture. No dislocation. Soft tissues: Unremarkable. Vasculature: Unremarkable. No abdominal aortic aneurysm. Lymph nodes: Unremarkable. IMPRESSION: Question wall thickening of the distal descending colon and sigmoid colon which may be secondary to underdistention versus a nonspecific colitis.
[2018-07-31 23:56] VITALS: BP 136/98; PULSE 88
== END 2018-08-01 00:11 | disposition home or self-care (01) ==
LOC: EC 21:53
DX: R10.11 Right upper quadrant pain (principal); R11.0 Nausea; K21.9 Gastro-esophageal reflux disease without esophagitis; F17.200 Nicotine dependence, unspecified, uncomplicated; Z79.899 Other long term (current) drug therapy; Z88.5 Allergy status to narcotic agent; Z90.49 Acquired absence of other specified parts of digestive tract
CPT/HCPCS: 36415; 80053; 83605; 83690; 85025; 81003; 74177; 99284; 96374; 96361; J2405; Q9967

== ENCOUNTER 2018-12-15 06:54 | Emergency (ER) | payer BC ==
[2018-12-15 07:01] VITALS: RESP 18; TEMP 97.6
--- NOTE | 2018-12-15 07:16 | ED ---
General Adult HPI - General Chief complaint: Upper Respiratory Infection Stated complaint: SOB Time Seen by Provider: 12/15/18 07:00 Source: patient, RN notes reviewed Mode of arrival: ambulatory Limitations: no limitations - History of Present Illness Initial comments: This is a 33-year-old male who presents emergency Department complaining of cough for the last 2 days. Patient states he was feeling little short of breath earlier but he did take his inhaler and feels much better now. Patient states she's had no fever or chills. Patient states he is not having much sputum production. Patient states he is a smoker and he continues to smoke. Patient states she's had no chest pain. Patient denies any palpitations. Patient denies any abdominal pain patient denies any nausea or vomiting. Patient denies any numbness or weakness but does state he has a slight headache. Patient denies any lightheadedness dizziness or near syncopal episode. Patient denies any swelling to her legs or leg tenderness. Patient states he has a history of asthma. Patient denies any history of hypertension - Related Data Home Medications Medication Instructions Recorded Confirmed Pantoprazole Sodium [Protonix] 40 mg PO DAILY 05/16/17 12/15/18 Previous Rx's Medication Instructions Recorded Azithromycin [Zithromax Tri-Burton] 500 mg PO DAILY #3 tab 12/15/18 amLODIPine [Norvasc] 5 mg PO DAILY #7 tab 12/15/18 predniSONE 40 mg PO DAILY #8 tab 12/15/18 Allergies Allergy/AdvReac Type Severity Reaction Status Date / Time meperidine HCl [From Demerol] Allergy Rash/Hives Verified 12/15/18 07:43 Review of Systems ROS Statement: Those systems with pertinent positive or pertinent negative responses have been documented in the HPI. ROS Other: All systems not noted in ROS Statement are negative. Past Medical History Past Medical History: Asthma, COPD, GERD/Reflux Additional Past Medical History / Comment(s): hep c (resolved) History of Any Multi-Drug Resistant Organisms: None Reported Past Surgical History: Cholecystectomy, Tonsillectomy Past Anesthesia/Blood Transfusion Reactions: No Reported Reaction Past Psychological History: No Psychological Hx Reported Smoking Status: Current every day smoker Past Alcohol Use History: None Reported Past Drug Use History: None Reported - Past Family History Mother Family Medical History: No Reported History General Exam - General Exam Comments Initial Comments: GENERAL: Patient is well-developed and well-nourished. Patient is nontoxic and well- hydrated and is in mild distress. ENT: Neck is soft and supple. No significant lymphadenopathy is noted. Oropharynx i s clear. Moist mucous membranes. Neck has full range of motion without eliciting any pain. EYES: The sclera were anicteric and conjunctiva were pink and moist. Extraocular movements were intact and pupils were equal round and reactive to light. Eyelids were unremarkable. PULMONARY: Unlabored respirations. Good breath sounds bilaterally. I heard no wheezing however patient stated he just his inhaler prior to me entering the room CARDIOVASCULAR: There is a regular rate and rhythm without any murmurs gallops or rubs. ABDOMEN: Soft and nontender with normal bowel sounds. SKIN: Skin is clear with no lesions or rashes and otherwise unremarkable. NEUROLOGIC: Patient is alert and oriented x3. Cranial nerves II through XII are grossly intact. Motor and sensory are also intact. Normal speech, volume and content. Symmetrical smile. MUSCULOSKELETAL: Normal extremities with adequate strength and full range of motion. LYMPHATICS: No significant lymphadenopathy is noted PSYCHIATRIC: Normal psychiatric evaluation. Limitations: no limitations Course Vital Signs 12/15/18 12/15/18 12/15/18 06:59 08:00 08:18 Temperature 97.6 F Pulse Rate 76 95 88 Respiratory 18 18 18 Rate Blood Pressure 184/106 153/117 154/113 O2 Sat by Pulse 99 95 95 Oximetry 12/15/18 12/15/18 09:00 10:00 Temperature Pulse Rate 94 100 Respiratory 18 18 Rate Blood Pressure 153/111 150/103 O2 Sat by Pulse 95 95 Oximetry Medical Decision Making - Medical Decision Making EKG shows normal sinus rhythm at 86 bpm MO interval is 140 QRS 78 QT interval 370 QTC is 452. Patient's EKG shows no ST segment elevation or depression or T wave abnormalities are noted. CT of the brain shows no acute abnormality. I will begin to reevaluate the patient he stated his headache was much improved. Patient received labetalol as well as hydralazine emergency department. Patient states that he does have high blood pressure and he has not followed up with anybody to take care of her. Patient initially told me he does not have any history of high blood pressure but in the anterior eventually admitted to it. - Lab Data Result diagrams: 12/15/18 08:15 12/15/18 08:15 Lab Results 12/15/18 12/15/18 12/15/18 Range/Units 08:15 08:15 08:15 WBC 6.0 (3.8-10.6) k/uL RBC 5.70 (4.30-5.90) m/uL Hgb 16.6 (13.0-17.5) gm/dL Hct 46.9 (39.0-53.0) % MCV 82.2 (80.0-100.0) fL MCH 29.1 (25.0-35.0) pg MCHC 35.4 (31.0-37.0) g/dL RDW 12.9 (11.5-15.5) % Plt Count 230 (150-450) k/uL Neutrophils % 47 % Lymphocytes % 42 % Monocytes % 6 % Eosinophils % 2 % Basophils % 1 % Neutrophils # 2.8 (1.3-7.7) k/uL Lymphocytes # 2.5 (1.0-4.8) k/uL Monocytes # 0.4 (0-1.0) k/uL Eosinophils # 0.1 (0-0.7) k/uL Basophils # 0.0 (0-0.2) k/uL Sodium 143 (137-145) mmol/L Potassium 4.3 (3.5-5.1) mmol/L Chloride 106 (98-107) mmol/L Carbon Dioxide 26 (22-30) mmol/L Anion Gap 11 mmol/L BUN 14 (9-20) mg/dL Creatinine 0.75 (0.66-1.25) mg/dL Est GFR (CKD-EPI)AfAm >90 (>60 ml/min/1.73 sqM) Est GFR (CKD-EPI)NonAf >90 (>60 ml/min/1.73 sqM) Glucose 89 (74-99) mg/dL Calcium 9.5 (8.4-10.2) mg/dL Total Bilirubin 0.3 (0.2-1.3) mg/dL AST 31 (17-59) U/L ALT 41 (21-72) U/L Alkaline Phosphatase 80 (38-126) U/L Troponin I <0.012 (0.000-0.034) ng/mL Total Protein 7.7 (6.3-8.2) g/dL Albumin 4.3 (3.5-5.0) g/dL Disposition Clinical Impression: Acute bronchitis with bronchospasm, Hypertensive urgency Disposition: HOME SELF-CARE Instructions (If sedation given, give patient instructions): Acute Bronchitis (ED) Prescriptions: amLODIPine [Norvasc] 5 mg PO DAILY #7 tab predniSONE 40 mg PO DAILY #8 tab Azithromycin [Zithromax Tri-Burton] 500 mg PO DAILY #3 tab Is patient prescribed a controlled substance at d/c from ED?: No Referrals: Ashli Olivera MD [Primary Care Provider] - 1-2 days Time of Disposition: 10:35
[2018-12-15] MEDS ORDERED: hydrALAZINE HCL 20 MG/ML 1 ML VIAL IVP STA ×2 (08:00→09:10)
--- NOTE | 2018-12-15 08:29 | CT ---
EXAMINATION TYPE: CT brain wo con DATE OF EXAM: 12/15/2018 COMPARISON: None INDICATION: SOB, Headache DLP: 1025.4 mGycm, Automated exposure control for dose reduction was used. CONTRAST: None CT of the brain is performed utilizing 3 mm thick sections through the posterior fossa and 3 mm thick sections through the remaining calvarium. Study is performed within 24 hours of arrival to the hosp [facility]. No abnormal hyperdensity is present to suggest an acute intracranial hemorrhage. No mass lesion is evident. No acute infarcts are evident. Ventricles and sulci are appropriate for the patient age. Paranasal sinuses and mastoid air cells within the [id number] are clear. IMPRESSIONS: 1. Normal CT Brain
[2018-12-15 08:39] LABS: Basophils % (A) 1 %; Eosinophils # (A) 0.1 k/uL (0-0.7); Eosinophils % (A) 2 %; HCT 46.9 % (39.0-53.0); HGB 16.6 gm/dL (13.0-17.5); Lymphocytes # (A) 2.5 k/uL (1.0-4.8); Lymphocytes % (A) 42 %; MCH 29.1 pg (25.0-35.0); MCHC 35.4 g/dL (31.0-37.0); MCV 82.2 fL (80.0-100.0); Mean Platelet Volume 6.1; Monocytes # (A) 0.4 k/uL (0-1.0); Monocytes % (A) 6 %; Neutrophils # (A) 2.8 k/uL (1.3-7.7); Neutrophils % (A) 47 %; Platelet Count 230 k/uL (150-450); RDW 12.9 % (11.5-15.5)
[2018-12-15 08:42] LABS: ALT 41 U/L (21-72); AST 31 U/L (17-59); African American GFR (CKD) >90 (>60 ml/min/1.73 sqM); Albumin 4.3 g/dL (3.5-5.0); Alkaline Phosphatase 80 U/L (38-126); Anion Gap 11 mmol/L; Blood Urea Nitrogen 14 mg/dL (9-20); Calcium 9.5 mg/dL (8.4-10.2); Carbon Dioxide 26 mmol/L (22-30); Chloride 106 mmol/L (98-107); Glucose 89 mg/dL (74-99); Potassium 4.3 mmol/L (3.5-5.1); Sodium 143 mmol/L (137-145); Total Bilirubin 0.3 mg/dL (0.2-1.3); Total Protein 7.7 g/dL (6.3-8.2)
[2018-12-15] MEDS ORDERED: LABETALOL 5 MG/ML VIAL MDV IVP STA (09:56)
[2018-12-15 10:51] VITALS: BP 147/96; PULSE 97
== END 2018-12-15 10:40 | disposition home or self-care (01) ==
LOC: EC 06:54
DX: J20.9 Acute bronchitis, unspecified (principal); I16.0 Hypertensive urgency; J44.0 Chronic obstructive pulmonary disease with (acute) lower respiratory infection; K21.9 Gastro-esophageal reflux disease without esophagitis; F17.200 Nicotine dependence, unspecified, uncomplicated; Z88.5 Allergy status to narcotic agent; Z79.899 Other long term (current) drug therapy; Z90.89 Acquired absence of other organs
CPT/HCPCS: 36415; 93005; 80053; 84484; 85025; 70450; 99285; 96374; 96375; 96376; J0360

== ENCOUNTER 2019-03-06 23:26 | Emergency (ER) | payer BC ==
[2019-03-06 23:35] VITALS: BP 141/94; PULSE 90; RESP 18; TEMP 98.2
--- NOTE | 2019-03-06 23:40 | ED ---
Neck Injury/Pain HPI - General Chief Complaint: Neck Pain/Injury Stated Complaint: Neck/shoulder pain Time Seen by Provider: 03/06/19 23:39 Source: RN notes reviewed, old records reviewed Mode of arrival: ambulatory Limitations: no limitations - History of Present Illness Initial Comments: This is a 33-year-old male date ER for evaluation of neck pain neck pain worse with movement. 3-4 days of symptoms. Worse in the right side of his neck worse when he turns his head to the left. Otherwise no significant traumas no recent IV drug abuse or tattoo, no fevers. No neurological complaints MD Complaint: neck pain, neck injury -: days(s) Place: home Radiation: right lateral Severity: mild Severity scale (1-10): 3 Quality: sharp, dull Consistency: constant Improves With: none Worsens With: none Context: other (Awoke with symptoms) Associated Symptoms: none Treatments Prior to Arrival: none - Related Data Home Medications Medication Instructions Recorded Confirmed Pantoprazole Sodium [Protonix] 40 mg PO DAILY 05/16/17 12/15/18 Previous Rx's Medication Instructions Recorded Azithromycin [Zithromax Tri-Burton] 500 mg PO DAILY #3 tab 12/15/18 amLODIPine [Norvasc] 5 mg PO DAILY #7 tab 12/15/18 predniSONE 40 mg PO DAILY #8 tab 12/15/18 Allergies Allergy/AdvReac Type Severity Reaction Status Date / Time meperidine HCl [From Demerol] Allergy Rash/Hives Verified 03/06/19 23:34 Review of Systems ROS Statement: Those systems with pertinent positive or pertinent negative responses have been documented in the HPI. ROS Other: All systems not noted in ROS Statement are negative. Past Medical History Past Medical History: Asthma, COPD, GERD/Reflux Additional Past Medical History / Comment(s): hep c (resolved) History of Any Multi-Drug Resistant Organisms: None Reported Past Surgical History: Cholecystectomy, Tonsillectomy Past Anesthesia/Blood Transfusion Reactions: No Reported Reaction Past Psychological History: No Psychological Hx Reported Smoking Status: Current every day smoker Past Alcohol Use History: None Reported Past Drug Use History: None Reported - Past Family History Mother Family Medical History: No Reported History General Exam Limitations: no limitations General appearance: alert, in no apparent distress Head exam: Present: atraumatic, normocephalic, normal inspection Eye exam: Present: normal appearance, PERRL, EOMI. Absent: scleral icterus, conjunctival injection, periorbital swelling ENT exam: Present: normal exam, mucous membranes moist Neck exam: Present: normal inspection. Absent: tenderness, meningismus, lymphadenopathy Respiratory exam: Present: normal lung sounds bilaterally. Absent: respiratory distress, wheezes, rales, rhonchi, stridor Cardiovascular Exam: Present: regular rate, normal rhythm, normal heart sounds. Absent: systolic murmur, diastolic murmur, rubs, gallop, clicks GI/Abdominal exam: Present: soft, normal bowel sounds. Absent: distended, te nderness, guarding, rebound, rigid Extremities exam: Present: normal inspection, full ROM, normal capillary refill. Absent: tenderness, pedal edema, joint swelling, calf tenderness Back exam: Present: normal inspection Neurological exam: Present: alert, oriented X3, CN II-XII intact Psychiatric exam: Present: normal affect, normal mood Skin exam: Present: warm, dry, intact, normal color. Absent: rash Course Vital Signs 03/06/19 23:32 Temperature 98.2 F Pulse Rate 90 Respiratory 18 Rate Blood Pressure 141/94 O2 Sat by Pulse 96 Oximetry - Reevaluation(s) Reevaluation #1: 03/07/19 00:55 Medical records reviewed Reevaluation #2: 03/07/19 00:55 Patient has improved pain Medical Decision Making - Medical Decision Making Family 3 female ER spasmatic torticollis, right neck pain. Right-sided neck pain and right shoulder pain. Scapular pain. Patient given pain control continue Motrin Tylenol for home Disposition Clinical Impression: Strain of neck muscle, Acute torticollis Disposition: HOME SELF-CARE Condition: Good Instructions (If sedation given, give patient instructions): Cervical Strain (ED) Is patient prescribed a controlled substance at d/c from ED?: No Referrals: Ashli Olivera MD [Primary Care Provider] - 1-2 days
[2019-03-07] MEDS ORDERED: ACET/COD 300 MG/30 MG STARTER PACK 6 TAB BTL PO STA (00:22)
[2019-03-07] MEDS ORDERED: ACETAMINOPHEN TAB 325 MG TAB PO STA (00:22)
[2019-03-07] MEDS ORDERED: DIAZEPAM 5 MG TAB PO STA (00:42)
[2019-03-07] MEDS ORDERED: Acetaminophen-Codeine 300-30mg TAB PO STA (00:42)
[2019-03-07] MEDS ORDERED: DEXAMETHASONE 4 MG TAB PO STA (00:42)
[2019-03-07] MEDS ORDERED: KETOROLAC 60 MG/2 ML VIAL IM STA (00:42)
== END 2019-03-07 01:16 | disposition home or self-care (01) ==
LOC: EC 23:26
DX: S16.1XXA Strain of muscle, fascia and tendon at neck level, initial encounter (principal); M43.6 Torticollis; M25.511 Pain in right shoulder; K21.9 Gastro-esophageal reflux disease without esophagitis; F17.200 Nicotine dependence, unspecified, uncomplicated; Z79.899 Other long term (current) drug therapy; Z88.5 Allergy status to narcotic agent
CPT/HCPCS: 99284; 96372; J8540; J1885

== ENCOUNTER → 2019-03-14 | Outpatient (CLI) | payer BC ==
--- NOTE | 2019-03-14 08:59 | XR ---
EXAMINATION TYPE: XR cervical spine comp , 5 VIEWS DATE OF EXAM ORDERED: 03/14/2019 HISTORY: M54.2. COMPARISON: None. FINDINGS: There is a mild reversal of the normal cervical lordosis. There is a retrograde listhesis of C5 on C6. Alignment otherwise maintained. Atlantoaxial relationships are normal. There is disc spa ce loss and hypertrophic spondylosis at C4-5 and C5-6. Intervertebral foramina on the left are well m aintained. There are poorly visualized on the right. There is uncovertebral joint disease present at C5-6. IMPRESSION: 1. NO ACUTE OSSEOUS LESION. 2. RETROGRADE LISTHESIS OF C5 ON C6. 3. DEGENERATIVE CHANGE. 4. INTERVERTEBRAL FORAMINA ON THE RIGHT ARE POORLY VISUALIZED.
== END | disposition home or self-care (01) ==
LOC: RAD 08:24
PROVIDERS: ATTEND Family Medicine
DX: M43.12 Spondylolisthesis, cervical region (principal); M47.812 Spondylosis without myelopathy or radiculopathy, cervical region
CPT/HCPCS: 72050

== ENCOUNTER → 2019-03-23 | Outpatient (CLI) | payer BC ==
--- NOTE | 2019-03-24 06:53 | MR ---
MRI CERVICAL SPINE: CLINICAL HISTORY: Right-sided neck pain, abnormal x-ray. TECHNIQUE: Multiplanar, multisequence imaging of the cervical spine is performed without IV contrast. COMPARISON: Cervical spine x-ray March 14, 2019. FINDINGS: Coronal images redemonstrate slight levoconvex scoliotic curvature centered in the upper th oracic spine. Sagittal images of the cervical spine show the craniocervical junction to appear within normal limits. The cervical and upper thoracic spinal cord is normal in caliber and signal. Reversa l of normal cervical curvature is redemonstrated. There is grade 1 retrolisthesis C4 on C5, to greate st degree C5 on C6 and to lesser degree C6 on C7. The vertebral body height are normal. [id number] ate disc space narrowing with moderate anterior spurring C5-C6 level. The bone marrow signal intensit y is within normal limits. Axial images show the C2-C3 and C3-C4 levels to appear within normal limits. Axial images at C4-C5 level shows some uncovertebral facet degenerative changes bilaterally otherwise . Bilateral neural foramina are patent. Axial images at C5-C6 levels with spondylolisthesis with broad-based right paracentral/foraminal disc protrusion effacing and to allow thecal sac, there is uncovertebral facet degenerative changes bilat erally, there is severe right neural foraminal narrowing axial image 23 and moderate left-sided neura l foraminal narrowing noted. Axial images at C6-C7 level show spondylolisthesis with uncovertebral facet degenerative change and r ight paracentral/foraminal disc herniation effacing ventral thecal sac and causing moderate to advanc ed right with moderate left-sided neural foraminal narrowing. Axial images at C7-T1 level are within normal limits. IMPRESSION: Reversal of normal cervical curvature with multilevel spondylolisthesis and degenerative change greatest at C5-C6 and C6-C7 levels as detailed above.
== END | disposition home or self-care (01) ==
LOC: RADMRIMAIN 06:02
PROVIDERS: ATTEND Family Medicine
DX: M43.12 Spondylolisthesis, cervical region (principal); M47.812 Spondylosis without myelopathy or radiculopathy, cervical region; M43.8X2 Other specified deforming dorsopathies, cervical region
CPT/HCPCS: 72141

== ENCOUNTER → 2020-01-06 | Outpatient (CLI) | payer BC | END | disposition home or self-care (01) | LOC: LABWHC1 13:02 | PROVIDERS: ATTEND Emergency Medicine | DX: Z20.828 Contact with and (suspected) exposure to other viral communicable diseases (principal) | CPT/HCPCS: U0003; C9803 ==

== ENCOUNTER 2020-01-19 13:57 | Emergency (ER) | payer BC ==
[2020-01-19 14:23] VITALS: RESP 18
[2020-01-19] MEDS ORDERED: IPRATROPIUM-ALBUTEROL 3 ML NEB INHALATION STA (14:50)
[2020-01-19] MEDS ORDERED: SODIUM CHLORIDE 0.9% 500 ML 500 ML IV STA (14:50)
[2020-01-19] MEDS ORDERED: methylPREDNISolone SOD SUCCI 125 MG/2 ML VIAL IV STA (14:50)
--- NOTE | 2020-01-19 15:01 | ED ---
General Adult HPI - General Chief complaint: Dizziness Stated complaint: Dizziness,SOB Time Seen by Provider: 01/19/20 14:42 Source: patient Mode of arrival: ambulatory Limitations: no limitations - History of Present Illness Initial comments: Patient is a 34-year-old male presenting to the emergency Department with complaints of some lightheadedness as well as shortness of breath for the past 2 hours ago. Patient has history of COPD, emphysema, is not on home O2. He does take inhalers daily. Does not have home nebulizer. Patient states she was tested for Covid last week and it was negative. He states his chest feels like there is "pressure on it." No pains, no nausea, no vomiting. He denies any abdominal pain, headache. He denies any falls or trauma. He has no further complaints at this time. Upon arrival to the ER his vital signs are stable. - Related Data Home Medications Medication Instructions Recorded Confirmed Albuterol Inhaler [Ventolin Hfa 2 puff INHALATION RT-Q6H PRN 01/19/20 01/19/20 Inhaler] Budesonide/Formoterol Fumarate 2 puff INHALATION RT-BID 01/19/20 01/19/20 [Symbicort 160-4.5 Mcg Inhaler] Esomeprazole Magnesium 40 mg PO DAILY 01/19/20 01/19/20 Ibuprofen [Motrin] 800 mg PO TID PRN 01/19/20 01/19/20 Pregabalin [Lyrica] 100 mg PO BID 01/19/20 01/19/20 Sildenafil [Revatio] 60 mg PO DAILY PRN 01/19/20 01/19/20 amLODIPine [Norvasc] 10 mg PO HS 01/19/20 01/19/20 buPROPion XL [Wellbutrin Xl] 150 mg PO DAILY 01/19/20 01/19/20 busPIRone HCl [Buspar] 10 mg PO BID 01/19/20 01/19/20 hydroCHLOROthiazide [Hydrodiuril] 25 mg PO DAILY 01/19/20 01/19/20 tiZANidine [Zanaflex] 8 mg PO TID PRN 01/19/20 01/19/20 Previous Rx's Medication Instructions Recorded methylPREDNISolone [Medrol Dose 4 mg PO DIRECTED #1 pack 01/19/20 Pack] Allergies Allergy/AdvReac Type Severity Reaction Status Date / Time meperidine HCl [From Demerol] Allergy Rash/Hives Verified 01/19/20 15:39 Review of Systems ROS Statement: Those systems with pertinent positive or pertinent negative responses have been documented in the HPI. ROS Other: All systems not noted in ROS Statement are negative. Past Medical History Past Medical History: Asthma, COPD, GERD/Reflux Additional Past Medical History / Comment(s): hep c (resolved) History of Any Multi-Drug Resistant Organisms: None Reported Past Surgical History: Cholecystectomy, Tonsillectomy Past Anesthesia/Blood Transfusion Reactions: No Reported Reaction Past Psychological History: No Psychological Hx Reported Smoking Status: Current every day smoker Past Alcohol Use History: None Reported Past Drug Use History: None Reported - Past Family History Mother Family Medical History: No Reported History General Exam - General Exam Comments Initial Comments: GENERAL: Patient is well-developed and well-nourished. Patient is nontoxic and in no acute distress. HEAD: Atraumatic, normocephalic. EYES: Pupils equal round and reactive to light, extraocular movements intact, sclera anicteric, conjunctiva are normal. Eyelids were unremarkable. ENT: TMs normal, nares patent, oropharynx clear without exudates. Moist mucous membranes. NECK: Normal range of motion, supple without lymphadenopathy or JVD. LUNGS: Unlabored respirations. Scattered wheezes, decreased air movement, much improved after breathing treatment. HEART: Regular rate and rhythm without murmurs, rubs or gallops. ABDOMEN: Soft, nontender, normoactive bowel sounds. No guarding, no rebound. No masses appreciated. : Deferred MUSCULOSKELETAL: Normal extremities with adequate strength and normal range of motion, no pitting or edema. No clubbing or cyanosis. NEUROLOGICAL: Patient is alert and oriented x 3. Motor and sensory are also intact. Cranial nerves II through XII grossly intact. Symmetrical smile. Normal speech, normal gait. PSYCH: Normal mood, normal affect. SKIN: Warm, Dry, normal turgor, no rashes or lesions noted. Limitations: no limitations Course Vital Signs 01/19/20 01/19/20 01/19/20 14:18 15:40 15:49 Temperature 98.3 F Pulse Rate 81 78 80 Respiratory 18 18 18 Rate Blood Pressure 145/93 O2 Sat by Pulse 97 Oximetry EKG Findings - EKG Comments: EKG Findings:: Normal sinus rhythm, normal ECG, no signs of acute ischemia. Ventricular rate 82, NE interval 168, QT 380. Medical Decision Making - Medical Decision Making Patient is 34-year-old male here with history of COPD, emphysema presenting with shortness of breath, dizziness for the past 2 hours. His vital signs are stable upon arrival. EKG shows no acute process. Labs are stable, troponin is negative, chest x-ray shows no acute process. Patient was given some fluids, steroids and a breathing treatment. His symptoms have improved after the breathing treatment. I discussed with patient this is most likely a mild COPD exacerbation. I will send him some steroids to start tomorrow. He can continue with his inhalers and he has at home. I did recommend following up with his PCP, recommended at home nebulizer machine. Patient is in agreement with this plan of care. He is stable for discharge. Return parameters were discussed with the patient and he verbalized understanding. Case discussed with Dr. Spicer. - Lab Data Result diagrams: 01/19/20 15:10 01/19/20 15:10 Lab Results 01/19/20 01/19/20 01/19/20 Range/Units 15:10 15:10 15:10 WBC 9.8 (3.8-10.6) k/uL RBC 5.77 (4.30-5.90) m/uL Hgb 16.8 (13.0-17.5) gm/dL Hct 47.8 (39.0-53.0) % MCV 82.8 (80.0-100.0) fL MCH 29.1 (25.0-35.0) pg MCHC 35.2 (31.0-37.0) g/dL RDW 13.2 (11.5-15.5) % Plt Count 257 (150-450) k/uL MPV 6.8 Neutrophils % 70 % Lymphocytes % 20 % Monocytes % 6 % Eosinophils % 1 % Basophils % 1 % Neutrophils # 6.9 (1.3-7.7) k/uL Lymphocytes # 2.0 (1.0-4.8) k/uL Monocytes # 0.6 (0-1.0) k/uL Eosinophils # 0.1 (0-0.7) k/uL Basophils # 0.1 (0-0.2) k/uL Sodium 136 L (137-145) mmol/L Potassium 4.1 (3.5-5.1) mmol/L Chloride 103 (98-107) mmol/L Carbon Dioxide 26 (22-30) mmol/L Anion Gap 7 mmol/L BUN 19 (9-20) mg/dL Creatinine 0.74 (0.66-1.25) mg/dL Est GFR (CKD-EPI)AfAm >90 (>60 ml/min/1.73 sqM) Est GFR (CKD-EPI)NonAf >90 (>60 ml/min/1.73 sqM) Glucose 93 (74-99) mg/dL Calcium 9.9 (8.4-10.2) mg/dL Total Bilirubin 0.4 (0.2-1.3) mg/dL AST 45 (17-59) U/L ALT 59 H (4-49) U/L Alkaline Phosphatase 78 (38-126) U/L Troponin I <0.012 (0.000-0.034) ng/mL Total Protein 8.4 H (6.3-8.2) g/dL Albumin 4.9 (3.5-5.0) g/dL Disposition Clinical Impression: COPD exacerbation Disposition: HOME SELF-CARE Condition: Stable Instructions (If sedation given, give patient instructions): COPD (Chronic Obs tructive Pulmonary Disease) (ED) Additional Instructions: Please return to the Emergency Department if symptoms worsen or any other concerns. Take steroids as prescribed starting tomorrow. Follow up with your PCP, recommended at home nebulizer machine. Prescriptions: methylPREDNISolone [Medrol Dose Pack] 4 mg PO DIRECTED #1 pack Is patient prescribed a controlled substance at d/c from ED?: No Referrals: Ashli Olivera MD [Primary Care Provider] - 1-2 days
[2020-01-19 15:29] LABS: Basophils # (A) 0.1 k/uL (0-0.2); Basophils % (A) 1 %; Eosinophils # (A) 0.1 k/uL (0-0.7); Eosinophils % (A) 1 %; HCT 47.8 % (39.0-53.0); HGB 16.8 gm/dL (13.0-17.5); Lymphocytes % (A) 20 %; MCH 29.1 pg (25.0-35.0); MCHC 35.2 g/dL (31.0-37.0); MCV 82.8 fL (80.0-100.0); Mean Platelet Volume 6.8; Monocytes # (A) 0.6 k/uL (0-1.0); Monocytes % (A) 6 %; Neutrophils # (A) 6.9 k/uL (1.3-7.7); Neutrophils % (A) 70 %; Platelet Count 257 k/uL (150-450); RBC 5.77 m/uL (4.30-5.90); RDW 13.2 % (11.5-15.5); WBC 9.8 k/uL (3.8-10.6)
[2020-01-19 15:38] LABS: ALT 59 U/L (4-49); AST 45 U/L (17-59); African American GFR (CKD) >90 (>60 ml/min/1.73 sqM); Albumin 4.9 g/dL (3.5-5.0); Alkaline Phosphatase 78 U/L (38-126); Anion Gap 7 mmol/L; Blood Urea Nitrogen 19 mg/dL (9-20); Calcium 9.9 mg/dL (8.4-10.2); Carbon Dioxide 26 mmol/L (22-30); Chloride 103 mmol/L (98-107); Glucose 93 mg/dL (74-99); Non-African American GFR(CKD) >90 (>60 ml/min/1.73 sqM); Potassium 4.1 mmol/L (3.5-5.1); Sodium 136 mmol/L (137-145); Total Bilirubin 0.4 mg/dL (0.2-1.3); Total Protein 8.4 g/dL (6.3-8.2)
--- NOTE | 2020-01-19 15:47 | XR ---
EXAMINATION TYPE: XR chest 2V DATE OF EXAM: 01/19/2020 COMPARISON: 07/20/2016 chest x-ray HISTORY: Shortness of breath TECHNIQUE: Frontal and lateral views of the chest are obtained. FINDINGS: There is no focal air space opacity, pleural effusion, or pneumothorax seen. The cardiac silhouette size is within normal limits. Prominent lung volumes may be indicative of underlying COPD. The osseous structures are intact. IMPRESSION: No acute cardiopulmonary process.
[2020-01-19 16:23] VITALS: BP 126/82; PULSE 78; TEMP 97.9
== END 2020-01-19 17:03 | disposition home or self-care (01) ==
LOC: EC 13:57
DX: J44.1 Chronic obstructive pulmonary disease with (acute) exacerbation (principal); K21.9 Gastro-esophageal reflux disease without esophagitis; F17.200 Nicotine dependence, unspecified, uncomplicated; Z79.51 Long term (current) use of inhaled steroids; Z79.899 Other long term (current) drug therapy; Z88.5 Allergy status to narcotic agent
CPT/HCPCS: 36415; 94640; 93005; 80053; 84484; 85025; 71046; 99284; 96374; 96361 ×2; J2930

== ENCOUNTER → 2020-03-23 | Outpatient (CLI) | payer BC ==
--- NOTE | 2020-03-23 10:40 | MR ---
EXAMINATION TYPE: MR cervical spine wo/w con DATE OF EXAM: 03/23/2020 COMPARISON: Prior exam 03/23/2019 MRI cervical spine HISTORY: Neck pain TECHNIQUE: Multiplanar, multisequence images of the cervical spine were acquired utilizing 7.5 mL intravenous Ga davist gadolinium contrast. Diffusion weighted imaging was performed. C2-C3: No evidence for degenerative disc disease. No disc bulge/herniation or protrusion. No Canal stenosis. Foramina are patent bilaterally. Stable. C3-C4: Small posterior disc bulge causes minimal anterior mass effect on the thecal sac. No significa nt spinal stenosis. No significant foraminal encroachment. C4-C5: Mild posterior disc bulge somewhat eccentric towards the right with uncovertebral joint hypert rophy causing some mild right-sided foraminal encroachment bilaterally, similar to prior exam. No sig nificant spinal stenosis. C5-C6: Posterior extension endplate disc complex eccentric towards the right, there is bilateral fora trice encroachment due to uncovertebral joint hypertrophy, spinal stenosis is stable. C6-C7: Uncovertebral joint hypertrophy, lateral extension endplate disc complex causes mild anterolat eral mass effect on the thecal sac, foraminal encroachment greater on the right. No significant spina l stenosis. C7-T1: No evidence for degenerative disc disease. No disc bulge/herniation or protrusion. No Canal stenosis. Foramina are patent bilaterally. Cervical segments are intact. Cervical spinal cord is of normal signal. Craniovertebral junction re lationships are within normal limits. There is a spinal curvature. There is multilevel spondylosis, endplate discogenic marrow signal change, stable loss of disc height signal greatest at C5-6. Reversa l the normal cervical lordosis is again noted. Some enhancement present at the level of the disc bulge at C5-6, posterior to the C6 vertebral body m ay represent some granulation tissue. IMPRESSION: Stable degenerative disc disease, foraminal encroachment, there is a spinal curvature. Additional fin dings above.
== END | disposition home or self-care (01) ==
LOC: RADMRIMAIN 09:06
PROVIDERS: ATTEND Orthopaedic Surgery
DX: M50.221 Other cervical disc displacement at C4-C5 level (principal); M50.30 Other cervical disc degeneration, unspecified cervical region; M47.812 Spondylosis without myelopathy or radiculopathy, cervical region; M89.38 Hypertrophy of bone, other site; M43.8X2 Other specified deforming dorsopathies, cervical region
CPT/HCPCS: 72156; A9585

== ENCOUNTER 2020-09-04 17:05 | Emergency (ER) | payer BC ==
[2020-09-04 17:14] VITALS: BP 145/84; PULSE 104; RESP 18; TEMP 98.1
--- NOTE | 2020-09-04 17:45 | ED ---
General Adult HPI - General Chief complaint: Extremity Injury, Upper Stated complaint: Rt Hand Injury Time Seen by Provider: 09/04/20 17:15 Source: patient, RN notes reviewed, old records reviewed Mode of arrival: ambulatory Limitations: physical limitation - History of Present Illness Initial comments: 34-year-old male with right hand injury. Patient was inner tubing on the water, had jumped in and was pulling the tube in his right hand. He had an extension and abrupt impact to his right hand. No other injury reported. This occurred yesterday. Patient is otherwise healthy. - Related Data Home Medications Medication Instructions Recorded Confirmed Albuterol Inhaler [Ventolin Hfa 2 puff INHALATION RT-Q6H PRN 01/19/20 01/19/20 Inhaler] Budesonide/Formoterol Fumarate 2 puff INHALATION RT-BID 01/19/20 01/19/20 [Symbicort 160-4.5 Mcg Inhaler] Esomeprazole Magnesium 40 mg PO DAILY 01/19/20 01/19/20 Ibuprofen [Motrin] 800 mg PO TID PRN 01/19/20 01/19/20 Pregabalin [Lyrica] 100 mg PO BID 01/19/20 01/19/20 Sildenafil [Revatio] 60 mg PO DAILY PRN 01/19/20 01/19/20 amLODIPine [Norvasc] 10 mg PO HS 01/19/20 01/19/20 buPROPion XL [Wellbutrin Xl] 150 mg PO DAILY 01/19/20 01/19/20 busPIRone HCl [Buspar] 10 mg PO BID 01/19/20 01/19/20 hydroCHLOROthiazide [Hydrodiuril] 25 mg PO DAILY 01/19/20 01/19/20 tiZANidine [Zanaflex] 8 mg PO TID PRN 01/19/20 01/19/20 Previous Rx's Medication Instructions Recorded methylPREDNISolone [Medrol Dose 4 mg PO DIRECTED #1 pack 01/19/20 Pack] Ibuprofen [Motrin] 600 mg PO Q8HR PRN #24 tab 09/04/20 Allergies Allergy/AdvReac Type Severity Reaction Status Date / Time meperidine HCl [From Demerol] Allergy Rash/Hives Verified 09/04/20 17:10 Review of Systems ROS Statement: Those systems with pertinent positive or pertinent negative responses have been documented in the HPI. ROS Other: All systems not noted in ROS Statement are negative. Past Medical History Past Medical History: Asthma, COPD, GERD/Reflux Additional Past Medical History / Comment(s): hep c (resolved) History of Any Multi-Drug Resistant Organisms: None Reported Past Surgical History: Cholecystectomy, Tonsillectomy Past Anesthesia/Blood Transfusion Reactions: No Reported Reaction Past Psychological History: No Psychological Hx Reported Smoking Status: Current every day smoker Past Alcohol Use History: None Reported Past Drug Use History: None Reported - Past Family History Mother Family Medical History: No Reported History General Exam Limitations: physical limitation General appearance: alert, in no apparent distress Head exam: Present: atraumatic, normocephalic Eye exam: Present: normal appearance, PERRL ENT exam: Present: normal exam Neck exam: Present: normal inspection. Absent: tenderness, meningismus Respiratory exam: Present: normal lung sounds bilaterally. Absent: respiratory distress, wheezes Cardiovascular Exam: Present: regular rate, normal rhythm Extremities exam: Present: tenderness (Soft tissue swelling over the dorsum of the right hand at the base of the fourth and fifth metacarpal. There is pain with range of motion of the fourth and fifth digit. Distal pulses intact, normal cap refill.) Course Vital Signs 09/04/20 17:08 Temperature 98.1 F Pulse Rate 104 H Respiratory 18 Rate Blood Pressure 145/84 O2 Sat by Pulse 98 Oximetry Procedures - Orthopedic Splinting/Casting Injury #1 Side: right Upper Extremity Injury Location: hand Upper Extremity Immobilizer: ulnar gutter Additional Comments: Fourth metacarpal fracture Medical Decision Making - Medical Decision Making 34 male with injury to the right hand, x-ray showing an oblique fracture through the midshaft of the fourth metacarpal minimally displaced. Patient is placed in a wide ulnar gutter. He is given orthopedic follow-up. Motrin for pain control. Disposition Clinical Impression: Metacarpal bone fracture Disposition: HOME SELF-CARE Condition: Good Instructions (If sedation given, give patient instructions): Hand Fracture (ED) Prescriptions: Ibuprofen [Motrin] 600 mg PO Q8HR PRN #24 tab PRN Reason: Pain Is patient prescribed a controlled substance at d/c from ED?: No Referrals: Ashli Olivera MD [Primary Care Provider] - 1-2 days Kurt Godinez DO [Doctor of Osteopathic Medicine] - 1-2 days Time of Disposition: 17:44
--- NOTE | 2020-09-04 17:51 | XR ---
EXAMINATION TYPE: XR hand complete RT DATE OF EXAM: 09/04/2020 COMPARISON: NONE HISTORY: Pain and twisting injury TECHNIQUE: 3 views FINDINGS: There is nondisplaced oblique fracture of the mid and proximal shaft of the fourth metacarp al. There is soft tissue swelling on the dorsum of the hand. There is no dislocation. IMPRESSION: Acute fourth metacarpal fracture.
== END 2020-09-04 18:15 | disposition home or self-care (01) ==
LOC: EC 17:05
DX: S62.324A Displaced fracture of shaft of fourth metacarpal bone, right hand, initial encounter for closed fracture (principal); J44.9 Chronic obstructive pulmonary disease, unspecified; K21.9 Gastro-esophageal reflux disease without esophagitis; F17.200 Nicotine dependence, unspecified, uncomplicated; X58.XXXA Exposure to other specified factors, initial encounter
CPT/HCPCS: 29125; 99283

== ENCOUNTER 2020-09-20 22:26 | Emergency (ER) | payer BC ==
[2020-09-20 22:34] VITALS: BP 168/90; PULSE 90; RESP 18; TEMP 98
--- NOTE | 2020-09-20 23:38 | XR ---
EXAMINATION TYPE: XR chest 2V DATE OF EXAM: 09/20/2020 COMPARISON: 01/19/2020 HISTORY: Short of breath TECHNIQUE: 2 views FINDINGS: Heart and mediastinum are normal. Lungs are clear. Diaphragm is normal. Bony thorax is inta ct. IMPRESSION: Normal chest. No change.
== END 2020-09-20 23:30 | disposition left against medical advice (07) ==
LOC: EC 22:26
DX: Z53.21 Procedure and treatment not carried out due to patient leaving prior to being seen by health care provider (principal)
CPT/HCPCS: 71046; 99499

== ENCOUNTER → 2020-11-09 | Outpatient (CLI) | payer BC ==
--- NOTE | 2020-11-09 14:41 | XR ---
EXAMINATION TYPE: XR abdomen acute w cxr DATE OF EXAM: 11/09/2020 COMPARISON: NONE HISTORY: 34-year-old male abdominal pain and nausea for 3 days. R12,R11.10,R50.9,R10.9 TECHNIQUE: Supine, upright, and left side down lateral decubitus views of the abdomen are obtained. FINDINGS: Frontal view of the chest shows normal heart size, aorta, and pulmonary vasculature. No con solidation or pleural effusion. No evidence for free intraperitoneal air. No dilated small bowel or air-fluid levels. Scattered mild stool burden. Cholecystectomy clips. No suspicious calcifications are seen. IMPRESSION: 1. No acute cardiopulmonary process. 2. No evidence for free air or bowel obstruction. 3. Mild stool burden.
== END | disposition home or self-care (01) ==
LOC: RADXRMAIN 14:15
PROVIDERS: ATTEND Family Medicine
DX: R19.5 Other fecal abnormalities (principal)
CPT/HCPCS: 74022

== ENCOUNTER 2020-11-23 11:47 | Emergency (ER) | payer BC ==
[2020-11-23 11:52] VITALS: BP 145/93; PULSE 77; RESP 18; TEMP 97.8
--- NOTE | 2020-11-23 13:04 | ED ---
General Adult HPI - General Chief complaint: Abdominal Pain Stated complaint: Hernia Time Seen by Provider: 11/23/20 12:41 Source: patient Mode of arrival: ambulatory Limitations: no limitations - History of Present Illness Initial comments: Dictation was produced using [employer] dictation software. please excuse any grammatical, word or spelling errors. Chief Complaint: 35-year-old male presents emergency department for hernia pain History of Present Illness: 35-year-old male was diagnosed with hernia recently. He was diagnosed by hernia by his primary care doctor. She states that last night he had episode of vomiting and worsening hernia site pain. Denies any fevers. Denies any worsening abdominal pain. Since that his emesis was nonbilious not bloody. No diarrhea. She denies ever trying to reduce the hernia. States that too painful in that area. There is history of hernia repair around the umbilicus performed by a surgeon that he does not report the name. The ROS documented in this emergency department record has been reviewed and confirmed by me. Those systems with pertinent positive or negative responses have been documented in the HPI. All other systems are other negative and/or noncontributory. PHYSICAL EXAM: General Impression: Alert and oriented x3, not in acute distress HEENT: Normocephalic atraumatic, extra-ocular movements intact, pupils equal and reactive to light bilaterally, mucous membranes moist. Cardiovascular: Heart regular rate and rhythm Chest: Able to complete full sentences, no retractions, no tachypnea Abdomen: abdomen soft, non-tender, non-distended, no organomegaly, incarcerated hernia at the right inguinal area, irreducible Musculoskeletal: Pulses present and equal in all extremities, no peripheral edema Motor: no focal deficits noted Neurological: CN II-XII grossly intact, no focal motor or sensory deficits noted Skin: Intact with no visualized rashes Psych: Normal affect and mood ED course: 35-year-old male presents emergency Department with incarcerated rig ht inguinal hernia. Vital signs upon arrival are within acceptable limits. Physical examination does not suggest strangulate hernia. Reduction was attempted at bedside and unsuccessful. Laboratory evaluation obtained. CBC, metabolic panel is unremarkable. Computed tomography scan of the abdomen and pelvis shows asymmetry to bilateral inguinal regions. There is mild uncomplicated acute distal colitis. Patient reevaluated at bedside at 2:00 PM finally be stable medical condition. Patient has appointment with general surgery next week. Return precautions discussed. Patient given hernia precautions. - Related Data Home Medications Medication Instructions Recorded Confirmed Albuterol Inhaler [Ventolin Hfa 2 puff INHALATION RT-Q6H PRN 01/19/20 11/23/20 Inhaler] Esomeprazole Magnesium 40 mg PO DAILY 01/19/20 11/23/20 Sildenafil [Revatio] 60 mg PO DAILY PRN 01/19/20 11/23/20 amLODIPine [Norvasc] 10 mg PO HS 01/19/20 11/23/20 busPIRone HCl [Buspar] 10 mg PO TID 01/19/20 11/23/20 hydroCHLOROthiazide [Hydrodiuril] 25 mg PO DAILY 01/19/20 11/23/20 Atorvastatin [Lipitor] 20 mg PO HS 11/23/20 11/23/20 Citalopram Hydrobromide [CeleXA] 40 mg PO DAILY 11/23/20 11/23/20 Ergocalciferol [Vitamin D2 (1250 1,250 mcg PO TH 11/23/20 11/23/20 Mcg = 77277 Iu)] Fluticasone Nasal [place] [Flonase 2 spray EA NOSTRIL DAILY 11/23/20 11/23/20 Nasal [place]] Mexiletine [Mexitil] 150 mg PO DAILY 11/23/20 11/23/20 Pamprin 2 tab PO DAILY PRN 11/23/20 11/23/20 Pregabalin [Lyrica] 150 mg PO BID 11/23/20 11/23/20 tiZANidine HCL 12 mg PO Q8HR 11/23/20 11/23/20 Allergies Allergy/AdvReac Type Severity Reaction Status Date / Time meperidine HCl [From Demerol] Allergy Rash/Hives Verified 11/23/20 13:18 Review of Systems ROS Statement: Those systems with pertinent positive or pertinent negative responses have been documented in the HPI. ROS Other: All systems not noted in ROS Statement are negative. Past Medical History Past Medical History: Asthma, COPD, GERD/Reflux Additional Past Medical History / Comment(s): hep c History of Any Multi-Drug Resistant Organisms: None Reported Past Surgical History: Cholecystectomy, Tonsillectomy Past Anesthesia/Blood Transfusion Reactions: No Reported Reaction Past Psychological History: No Psychological Hx Reported Smoking Status: Current every day smoker Past Alcohol Use History: None Reported Past Drug Use History: Marijuana - Past Family History Mother Family Medical History: No Reported History General Exam Limitations: no limitations Course Vital Signs 11/23/20 11:49 Temperature 97.8 F Pulse Rate 77 Respiratory 18 Rate Blood Pressure 145/93 O2 Sat by Pulse 95 Oximetry Medical Decision Making - Lab Data Result diagrams: 11/23/20 12:58 11/23/20 12:58 Lab Results 11/23/20 11/23/20 11/23/20 Range/Units 12:58 12:58 12:58 WBC 5.3 (3.8-10.6) k/uL RBC 5.34 (4.30-5.90) m/uL Hgb 15.8 (13.0-17.5) gm/dL Hct 43.7 (39.0-53.0) % MCV 81.9 (80.0-100.0) fL MCH 29.6 (25.0-35.0) pg MCHC 36.1 (31.0-37.0) g/dL RDW 13.8 (11.5-15.5) % Plt Count 222 (150-450) k/uL MPV 7.7 Neutrophils % 64 % Lymphocytes % 26 % Monocytes % 8 % Eosinophils % 1 % Basophils % 1 % Neutrophils # 3.4 (1.3-7.7) k/uL Lymphocytes # 1.4 (1.0-4.8) k/uL Monocytes # 0.4 (0-1.0) k/uL Eosinophils # 0.0 (0-0.7) k/uL Basophils # 0.0 (0-0.2) k/uL Sodium 141 (137-145) mmol/L Potassium 3.9 (3.5-5.1) mmol/L Chloride 106 (98-107) mmol/L Carbon Dioxide 27 (22-30) mmol/L Anion Gap 8 mmol/L BUN 12 (9-20) mg/dL Creatinine 0.68 (0.66-1.25) mg/dL Est GFR (CKD-EPI)AfAm >90 (>60 ml/min/1.73 sqM) Est GFR (CKD-EPI)NonAf >90 (>60 ml/min/1.73 sqM) Glucose 103 H (74-99) mg/dL Plasma Lactic Acid Arturo 1.2 (0.7-2.0) mmol/L Calcium 9.0 (8.4-10.2) mg/dL Disposition Clinical Impression: Groin pain Disposition: HOME SELF-CARE Condition: Good Instructions (If sedation given, give patient instructions): Inguinal Hernia (ED) Is patient prescribed a controlled substance at d/c from ED?: No Referrals: Ashli Olivera MD [Primary Care Provider] - 1-2 days
--- NOTE | 2020-11-23 13:48 | CT ---
EXAMINATION TYPE: CT abdomen pelvis w con DATE OF EXAM: 11/23/2020 COMPARISON: CT abdomen and pelvis July 31, 2018 HISTORY: Lt sided hernia CT DLP: 838.2 mGycm, Automated Exposure Control for Dose Reduction was Utilized. CONTRAST: CT scan of the abdomen and pelvis is performed without oral but with IV Contrast, patient injected wi th 100 mL of Isovue 300. FINDINGS: LUNG BASES: Mild emphysematous change in visualized lung bases. LIVER/GB: Cholecystectomy clips redemonstrated. Liver remains diffusely low dense consistent with dif fuse fatty infiltration. PANCREAS: No significant abnormality is seen. SPLEEN: No significant abnormality is seen. ADRENALS: No significant abnormality is seen. KIDNEYS: No significant abnormality is seen. BOWEL: Suboptimal evaluation of bowel without enteric contrast. No suspicious small or large bowel di latation. Mild wall thickening in the left and sigmoid colon remains present. No significant surround ing fat stranding. PROSTATE/SEMINAL VESICLES: No gross abnormality seen. LYMPH NODES: No greater than 1cm abdominal or pelvic lymph nodes are appreciated. OSSEOUS STRUCTURES: No significant abnormality is seen. OTHER: Asymmetry to bilateral inguinal regions on current study with left-sided increased soft tissue density could reflect interval surgery. Correlate clinically. No bowel containing hernia identified bilaterally. No new focal hernia clearly seen. IMPRESSION: Perhaps mild uncomplicated acute distal colitis. Correlate clinically.
[2020-11-23 13:59] LABS: Basophils % (A) 1 %; Eosinophils % (A) 1 %; HCT 43.7 % (39.0-53.0); HGB 15.8 gm/dL (13.0-17.5); Lymphocytes # (A) 1.4 k/uL (1.0-4.8); Lymphocytes % (A) 26 %; MCH 29.6 pg (25.0-35.0); MCHC 36.1 g/dL (31.0-37.0); MCV 81.9 fL (80.0-100.0); Mean Platelet Volume 7.7; Monocytes # (A) 0.4 k/uL (0-1.0); Monocytes % (A) 8 %; Neutrophils # (A) 3.4 k/uL (1.3-7.7); Neutrophils % (A) 64 %; Platelet Count 222 k/uL (150-450); RBC 5.34 m/uL (4.30-5.90); RDW 13.8 % (11.5-15.5); WBC 5.3 k/uL (3.8-10.6)
[2020-11-23 14:00] LABS: African American GFR (CKD) >90 (>60 ml/min/1.73 sqM); Anion Gap 8 mmol/L; Blood Urea Nitrogen 12 mg/dL (9-20); Carbon Dioxide 27 mmol/L (22-30); Chloride 106 mmol/L (98-107); Glucose 103 mg/dL (74-99); Non-African American GFR(CKD) >90 (>60 ml/min/1.73 sqM); Potassium 3.9 mmol/L (3.5-5.1); Sodium 141 mmol/L (137-145)
== END 2020-11-23 14:24 | disposition home or self-care (01) ==
LOC: EC 11:47
DX: K52.9 Noninfective gastroenteritis and colitis, unspecified (principal); K40.30 Unilateral inguinal hernia, with obstruction, without gangrene, not specified as recurrent; J44.9 Chronic obstructive pulmonary disease, unspecified; K21.9 Gastro-esophageal reflux disease without esophagitis; F17.200 Nicotine dependence, unspecified, uncomplicated; F12.90 Cannabis use, unspecified, uncomplicated; Z79.51 Long term (current) use of inhaled steroids; Z79.899 Other long term (current) drug therapy; Z88.5 Allergy status to narcotic agent; Z90.49 Acquired absence of other specified parts of digestive tract
CPT/HCPCS: 36415; 80048; 83605; 85025; 74177; 99284; Q9967

== ENCOUNTER → 2021-02-22 | Outpatient (CLI) | payer BC ==
[2021-02-22 08:30] LABS: Basophils % (A) 1 %; Eosinophils % (A) 1 %; HCT 53.7 % (39.0-53.0); HGB 18.2 gm/dL (13.0-17.5); Lymphocytes # (A) 1.1 k/uL (1.0-4.8); Lymphocytes % (A) 27 %; MCH 28.7 pg (25.0-35.0); MCHC 33.8 g/dL (31.0-37.0); MCV 84.9 fL (80.0-100.0); Mean Platelet Volume 7.8; Monocytes # (A) 0.8 k/uL (0-1.0); Monocytes % (A) 19 %; Neutrophils % (A) 49 %; Platelet Count 227 k/uL (150-450); RBC 6.33 m/uL (4.30-5.90); RDW 13.4 % (11.5-15.5)
== END | disposition home or self-care (01) ==
LOC: LABPAT 07:51
PROVIDERS: ATTEND Surgery
DX: Z01.812 Encounter for preprocedural laboratory examination (principal)
CPT/HCPCS: 36415; 85025

== ENCOUNTER 2021-02-24 16:40 | Emergency (ER) | payer BC ==
--- NOTE | 2021-02-24 17:54 | ED ---
General Adult HPI - General Chief complaint: Upper Respiratory Infection Stated complaint: N/V/D,SOB Time Seen by Provider: 02/24/21 17:48 Source: patient, RN notes reviewed, old records reviewed Mode of arrival: ambulatory Limitations: no limitations - History of Present Illness Initial comments: Well-appearing 35-year-old male in no acute distress and alert and oriented 4, presents to the emergency room with complaints of nausea vomiting diarrhea and malaise for the past 3 days. He was tested at Dr. Cornelius's office and is positive for coronavirus and told to come for monoclonal antibodies infusion. He did bring a copy of the positive test results with him. He has been vaccinated. He does have a history of asthma, COPD and is a current pack a day smoker. -: days(s) (3) Location: abdomen Severity scale (1-10): 3 Consistency: intermittent Improves with: none Worsens with: none Associated Symptoms: malaise, nausea/vomiting, other (Diarrhea) Treatments Prior to Arrival: none - Related Data Home Medications Medication Instructions Recorded Confirmed Albuterol Inhaler [Ventolin Hfa 2 puff INHALATION RT-Q6H PRN 02/21/21 02/24/21 Inhaler] Esomeprazole Magnesium [NexIUM] 40 mg PO DAILY 02/21/21 02/24/21 Allergies Allergy/AdvReac Type Severity Reaction Status Date / Time meperidine HCl [From Demerol] Allergy Rash/Hives Verified 02/24/21 18:31 Review of Systems ROS Statement: Those systems with pertinent positive or pertinent negative responses have been documented in the HPI. ROS Other: All systems not noted in ROS Statement are negative. Past Medical History Past Medical History: Asthma, COPD, GERD/Reflux, Hyperlipidemia, Hypertension Additional Past Medical History / Comment(s): HEP C History of Any Multi-Drug Resistant Organisms: None Reported Past Surgical History: Cholecystectomy, Tonsillectomy Past Anesthesia/Blood Transfusion Reactions: No Reported Reaction Past Psychological History: No Psychological Hx Reported Smoking Status: Current every day smoker Past Alcohol Use History: None Reported Past Drug Use History: Marijuana - Past Family History Mother Family Medical History: Coronary Artery Disease (CAD) General Exam Limitations: no limitations General appearance: alert, in no apparent distress Head exam: Present: atraumatic, normocephalic, normal inspection Eye exam: Present: normal appearance, EOMI. Absent: scleral icterus, conjunctival injection ENT exam: Present: normal exam, normal oropharynx, mucous membranes moist Neck exam: Present: normal inspection, full ROM. Absent: tenderness, mening ismus, lymphadenopathy, thyromegaly Respiratory exam: Present: normal lung sounds bilaterally. Absent: respiratory distress, wheezes, rales, rhonchi, stridor, chest wall tenderness, accessory muscle use Cardiovascular Exam: Present: regular rate, normal rhythm, normal heart sounds. Absent: systolic murmur, diastolic murmur, rubs, gallop, clicks GI/Abdominal exam: Present: soft. Absent: distended, tenderness, guarding, rebound, rigid Extremities exam: Present: normal capillary refill Back exam: Present: normal inspection, full ROM. Absent: tenderness, CVA tenderness (R), CVA tenderness (L), rash noted Neurological exam: Present: alert, oriented X3 Psychiatric exam: Present: normal affect, normal mood Skin exam: Present: warm, dry, intact, normal color. Absent: rash, cyanosis, diaphoretic Course Vital Signs 02/24/21 02/24/21 02/24/21 16:45 18:34 18:45 Temperature 99.5 F Pulse Rate 94 85 Respiratory 20 18 18 Rate Blood Pressure 171/115 152/96 O2 Sat by Pulse 97 96 Oximetry Medical Decision Making - Medical Decision Making 35-year-old male in no acute distress presents with complaints of nausea vomiting diarrhea and malaise for the past 3 days. He tested positive for coronavirus at his PCP's office and was told to come to the ER for monoclonal antibodies. He has been vaccinated. He does have a history of asthma, COPD and is a current pack a day smoker. Labs show no evidence of leukocytosis, hemoglobin and hematocrit are stable. Electrolytes are unremarkable. He was agreeable to receive the monoclonal antibody infusion and tolerated the infusion without any difficulties. His oxygen saturation is 97% on room air. Instructed to return to the emergency room with any new or worsening symptoms of shortness of breath or chest pain. He does have albuterol at home to use for any shortness of breath. Case discussed with Dr. Del Rio - Lab Data Result diagrams: 02/24/21 18:13 02/24/21 18:13 Lab Results 02/24/21 02/24/21 Range/Units 18:13 18:13 WBC 5.9 (3.8-10.6) k/uL RBC 5.91 H (4.30-5.90) m/uL Hgb 17.3 (13.0-17.5) gm/dL Hct 49.8 (39.0-53.0) % MCV 84.2 (80.0-100.0) fL MCH 29.3 (25.0-35.0) pg MCHC 34.8 (31.0-37.0) g/dL RDW 13.9 (11.5-15.5) % Plt Count 187 (150-450) k/uL MPV 7.5 Neutrophils % 72 % Lymphocytes % 19 % Monocytes % 7 % Eosinophils % 1 % Basophils % 0 % Neutrophils # 4.3 (1.3-7.7) k/uL Lymphocytes # 1.1 (1.0-4.8) k/uL Monocytes # 0.4 (0-1.0) k/uL Eosinophils # 0.1 (0-0.7) k/uL Basophils # 0.0 (0-0.2) k/uL Sodium 140 (137-145) mmol/L Potassium 3.6 (3.5-5.1) mmol/L Chloride 104 (98-107) mmol/L Carbon Dioxide 23 (22-30) mmol/L Anion Gap 13 mmol/L BUN 17 (9-20) mg/dL Creatinine 1.07 (0.66-1.25) mg/dL Est GFR (CKD-EPI)AfAm >90 (>60 ml/min/1.73 sqM) Est GFR (CKD-EPI)NonAf 89 (>60 ml/min/1.73 sqM) Glucose 94 (74-99) mg/dL Calcium 9.1 (8.4-10.2) mg/dL Total Bilirubin 0.4 (0.2-1.3) mg/dL AST 37 (17-59) U/L ALT 32 (4-49) U/L Alkaline Phosphatase 92 (38-126) U/L Total Protein 7.9 (6.3-8.2) g/dL Albumin 4.6 (3.5-5.0) g/dL Disposition Clinical Impression: COVID-19 Disposition: HOME SELF-CARE Condition: Good Instructions (If sedation given, give patient instructions): Coronavirus Disease 2019 (COVID-19) Additional Instructions: Take vitamin C, vitamin D and zinc for immune health. Increase your fluid intake. Use albuterol as needed for dyspnea. Return to the emergency room with any new or worsening symptoms. Decrease and your smoking which will worsen your symptoms of difficulty breathing with Covid Is patient prescribed a controlled substance at d/c from ED?: No Referrals: Ashli Olivera MD [Primary Care Provider] - 1-2 days Time of Disposition: 20:12
[2021-02-24] MEDS ORDERED: ONDANSETRON 4 MG/2 ML VIAL IVP STA (17:59)
[2021-02-24] MEDS ORDERED: SODIUM CHLORIDE 0.9% 500 ML 500 ML IV STA (17:59)
[2021-02-24 18:20] LABS: Basophils % (A) 0 %; Eosinophils # (A) 0.1 k/uL (0-0.7); Eosinophils % (A) 1 %; HCT 49.8 % (39.0-53.0); HGB 17.3 gm/dL (13.0-17.5); Lymphocytes # (A) 1.1 k/uL (1.0-4.8); Lymphocytes % (A) 19 %; MCH 29.3 pg (25.0-35.0); MCHC 34.8 g/dL (31.0-37.0); MCV 84.2 fL (80.0-100.0); Mean Platelet Volume 7.5; Monocytes # (A) 0.4 k/uL (0-1.0); Monocytes % (A) 7 %; Neutrophils # (A) 4.3 k/uL (1.3-7.7); Neutrophils % (A) 72 %; Platelet Count 187 k/uL (150-450); RBC 5.91 m/uL (4.30-5.90); RDW 13.9 % (11.5-15.5); WBC 5.9 k/uL (3.8-10.6)
[2021-02-24] MEDS ORDERED: CASIRIVIMAB (REGN10933) (EUA) 600 MG, IMDEVIMAB (REGN10987) (EUA) 600 MG in SODIUM CHLO... IVPB ONE (18:30)
[2021-02-24 18:42] LABS: ALT 32 U/L (4-49); AST 37 U/L (17-59); African American GFR (CKD) >90 (>60 ml/min/1.73 sqM); Albumin 4.6 g/dL (3.5-5.0); Alkaline Phosphatase 92 U/L (38-126); Anion Gap 13 mmol/L; Blood Urea Nitrogen 17 mg/dL (9-20); Calcium 9.1 mg/dL (8.4-10.2); Carbon Dioxide 23 mmol/L (22-30); Chloride 104 mmol/L (98-107); Glucose 94 mg/dL (74-99); Non-African American GFR(CKD) 89 (>60 ml/min/1.73 sqM); Potassium 3.6 mmol/L (3.5-5.1); Sodium 140 mmol/L (137-145); Total Bilirubin 0.4 mg/dL (0.2-1.3); Total Protein 7.9 g/dL (6.3-8.2)
[2021-02-24] MEDS ORDERED: SODIUM CHLORIDE 0.9% 50 ML IVPB ONE (19:00)
[2021-02-24 20:49] VITALS: BP 136/74; PULSE 89; RESP 15; TEMP 98.6
== END 2021-02-24 20:27 | disposition home or self-care (01) ==
LOC: EC 16:40
DX: U07.1 COVID-19 (principal); J44.9 Chronic obstructive pulmonary disease, unspecified; K21.9 Gastro-esophageal reflux disease without esophagitis; E78.5 Hyperlipidemia, unspecified; I10 Essential (primary) hypertension; F17.200 Nicotine dependence, unspecified, uncomplicated; F12.90 Cannabis use, unspecified, uncomplicated; Z88.1 Allergy status to other antibiotic agents; Z90.49 Acquired absence of other specified parts of digestive tract
CPT/HCPCS: 99284; 96374; 96361; 36415; 80053; 85025; J2405; Q0244

== ENCOUNTER 2021-03-08 06:42 | Day surgery (SDC) | payer BC ==
[2021-02-21 14:33] VITALS: BMI 26.1
[~2021-03-08 06:42] MED LIST: ACETAMINOPHEN TAB 500 MG TAB PO PRN; DEXAMETHASONE SOD PHOSPHATE 4 MG/ML 1 ML VIAL IV ONE; HEPARIN SODIUM,PORCINE/PF 5,000 UNIT/0.5 ML SYRINGE SQ PRN; HYDROmorphone 0.5 MG/0.5 ML SYRINGE IVP PRN; LACTATED RINGERS 1,000 ML IV SCH; LIDOCAINE 1% (10MG/ML) FOR IV START INTRADERMA PRN; ONDANSETRON 4 MG/2 ML VIAL IVP ONE; SCOPOLAMINE 1.5MG/72HR PATCH TRANSDERM ONE
[2021-03-08 07:54] VITALS: TEMP 97.2
[2021-03-08] MEDS ORDERED: MIDAZOLAM 2 MG/2 ML VIAL IVP ONE (08:19)
[2021-03-08] MEDS ORDERED: ROCURONIUM 10 MG/ML (5 ML VIAL) IV ONE (08:41)
[2021-03-08] MEDS ORDERED: SUCCINYLCHOLINE CHLORIDE 100 MG/5 ML SYR IV ONE (08:41)
[2021-03-08] MEDS ORDERED: fentaNYL (PF) 50 MCG/ML 2 ML AMP ONE (08:41)
[2021-03-08] MEDS ORDERED: PROPOFOL 10 MG/ML 20 ML VIAL IV ONE (08:41)
[2021-03-08] MEDS ORDERED: MIDAZOLAM 2 MG/2 ML VIAL ONE (08:41)
[2021-03-08] MEDS ORDERED: DEXAMETHASONE SOD PHOSPHATE 4 MG/ML 1 ML VIAL ONE (08:41)
[2021-03-08] MEDS ORDERED: SODIUM CHLORIDE 0.9% (PF) 10 ML VIAL ONE (08:41)
[2021-03-08] MEDS ORDERED: KETOROLAC 15 MG/ML 1 ML VIAL ONE (08:41)
[2021-03-08] MEDS ORDERED: ROPIVACAINE 5 MG/ML 30 ML VIAL ONE (08:41)
[2021-03-08] MEDS ORDERED: BUPIVACAIN-EPI 0.25%-1:200,000 30 ML VIAL SQ ONE ×2 (09:16)
[2021-03-08] MEDS ORDERED: LACTATED RINGERS 1,000 ML IV ONE (09:29)
[2021-03-08] MEDS ORDERED: HYDROmorphone 1 MG/ML 1 ML SYRINGE IVP ONE (10:49)
[2021-03-08 11:21] VITALS: BP 130/70; PULSE 70; RESP 20
--- NOTE | 2021-03-08 14:13 | P.ANPRN ---
Procedure Note - Anesthesia - Nerve Block Performed Bilateral Erector Spinae Single Time Out Performed: Yes Date of Procedure: 03/08/21 Procedure Start Time: Procedure Stop Time: Location of Patient: PreOp Indication: Acute Post-Operative Pain, Requested by Surgeon Sedation Type: Sedate with meaningful contact maintained Preparation: Sterile Prep Position: Prone Needle Types: Pajunk Needle Gauge: 21 Ultrasound used to visualize needle placement: Yes Ultrasound used to observe medication spread: Yes Blood Aspirated: No Pain Paresthesia on Injection Noted: No Resistance on Injection: Normal Image Stored and Saved: Yes Events: Uneventful and Well Tolerated (ropi .5% 15cc plus ns 10cc plus dexamethasone 4mg bilaterally)
--- NOTE | 2021-03-08 15:44 | P.OP ---
Date of Procedure: 03/08/21 Preoperative Diagnosis: Right inguinal hernia Postoperative Diagnosis: Right inguinal hernia Procedure(s) Performed: Laparoscopic robotic-assisted repair of right inguinal hernia Transversus abdominis plain block Anesthesia: LIAM Surgeon: Raphael Gallegos Estimated Blood Loss (ml): 5 Pathology: none sent Condition: stable Disposition: PACU Description of Procedure: The patient's placed on the operating table in the supine position. The patient received general anesthesia. The patient's abdomen was prepped and draped in usual sterile fashion. The skin was anesthetized 1% local Xylocaine at the incision sites. Using an 11 blade a skin incision was made at the umbilicus. The fascia was grasped with a Lakeshia and then the peritoneal cavity was entered with the Veress needle. Position of the Veress needle was confirmed with a positive drop test. After adequate insufflation a 5 mm trocar was placed into the peritoneal cavity. The Laparoscope was placed the peritoneal cavity. And a robotic 8 mm trocar was placed in the right lateral position and then another 8 mm robotic trochars placed in the left lateral position. The original 5 mm trocar was exchanged for a 12 mm trocar. The patient was placed in reverse Trendelenburg and then the patient was docked to the robot. H transversus abdominis plane block was then performed in 4 quadrants using 1% local Xylocaine. Next the peritoneum over top of the hernia was incised and then using blunt and sharp dissection and electrocautery the hernia sac was dissected free from the floor of the inguinal canal. The hernia sac was completely reduced into the peritoneal cavity. And then using the Pro guest advisor mesh the hernia was repaired. The peritoneum was then sutured with 20V lock suture. The patient was then undocked the robot. The needle was withdrawn from the peritoneal cavity. The umbilical trocar site was closed with 0 Ethibond suture. The skin was closed interrupted 3-0 Monocryl suture. Dermabond dressing was applied. Patient was sent to recovery in stable condition.
--- NOTE | 2021-03-08 15:45 | P.GSHP ---
History of Present Illness H&P Date: 03/08/21 Chief Complaint: Right inguinal hernia This is a 35-year-old male who presents today for laparoscopic robotic-assisted repair of right inguinal Hernia. Patient has developed a tender mass in his right groin. Past Medical History Past Medical History: Asthma, COPD, GERD/Reflux, Hyperlipidemia, Hypertension Additional Past Medical History / Comment(s): HEP C., POSITIVE FOR COVID 02/24/21 AND RECEIVED MONOCLONAL ANTIBODY INFUSION- STATES NO CURRENT SYMPTOMS., NO RX FOR BP., RIGHT INGUINAL HERNIA. History of Any Multi-Drug Resistant Organisms: None Reported Past Surgical History: Cholecystectomy, Tonsillectomy Past Anesthesia/Blood Transfusion Reactions: No Reported Reaction Past Psychological History: No Psychological Hx Reported Smoking Status: Current every day smoker Past Alcohol Use History: None Reported Additional Past Alcohol Use History / Comment(s): smokes 1/2 ppd, started smoking age 12. Past Drug Use History: Marijuana Additional Drug Use History / Comment(s): current marijuana - Past Family History Mother Family Medical History: Coronary Artery Disease (CAD) Medications and Allergies Home Medications Medication Instructions Recorded Confirmed Type Albuterol Inhaler [Ventolin Hfa 2 puff INHALATION RT-Q6H PRN 02/21/21 03/08/21 History Inhaler] Esomeprazole Magnesium [NexIUM] 40 mg PO DAILY 02/21/21 03/08/21 History Acetaminophen Tab [Tylenol] 650 mg PO Q6H #30 tab 03/08/21 Rx Docusate [Colace] 100 mg PO BID #20 capsule 03/08/21 Rx Ibuprofen [Motrin] 600 mg PO Q6HR PRN #40 tab 03/08/21 Rx oxyCODONE HCL [OxyIR] 5 mg PO Q6H PRN 3 Days #10 tab 03/08/21 Rx Allergies Allergy/AdvReac Type Severity Reaction Status Date / Time meperidine HCl [From Demerol] Allergy Rash/Hives Verified 03/08/21 07:56 Surgical - Exam Vital Signs Temp Pulse Resp BP Pulse Ox 97.2 F L 78 16 140/85 94 L 03/08/21 07:53 03/08/21 07:53 03/08/21 07:53 03/08/21 07:53 03/08/21 07:53 - General well developed, well nourished, no distress - Eyes PERRL - ENT normal pinna - Neck no masses - Respiratory normal expansion - Cardiovascular Rhythm: regular - Abdomen Abdomen: non tender Assessment and Plan Assessment: Right inguinal hernia. We'll perform laparoscopic robotic-assisted repair.
== END 2021-03-08 11:41 | disposition home or self-care (01) ==
LOC: OR 06:42
PROVIDERS: ATTEND Surgery
DX: K40.91 Unilateral inguinal hernia, without obstruction or gangrene, recurrent (principal); J45.909 Unspecified asthma, uncomplicated; E78.5 Hyperlipidemia, unspecified; I10 Essential (primary) hypertension; F17.200 Nicotine dependence, unspecified, uncomplicated
CPT/HCPCS: 49650; S2900; 64999

== ENCOUNTER → 2021-06-07 | Outpatient (CLI) | payer BC ==
[2021-06-07 23:30] LABS: Basophils # (A) 0.02 X 10*3/uL (0.00-0.10); Basophils % (A) 0.2 %; Eosinophils # (A) 0.05 X 10*3/uL (0.04-0.35); Eosinophils % (A) 0.6 %; HCT 48.1 % (39.6-50.0); HGB 16.3 g/dL (13.0-17.0); Immature Grans, Automated 0.4 %; Lymphocytes # (A) 1.92 X 10*3/uL (0.90-5.00); Lymphocytes % (A) 22.7 %; MCH 28.6 pg (27.0-32.0); MCHC 33.9 g/dL (32.0-37.0); MCV 84.4 fL (80.0-97.0); Mean Platelet Volume 10.6 fL (9.5-12.2); Monocytes # (A) 0.61 X 10*3/uL (0.20-1.00); Monocytes % (A) 7.2 %; NRBC Per 100 WBC 0 /100 WBCS (0.0-0.0); Neutrophils # (A) 5.81 X 10*3/uL (1.80-7.70); Neutrophils % (A) 68.9 %; Platelet Count 251 X 10*3/uL (140-440); RDW 13.1 % (11.5-14.5); WBC 8.44 X 10*3/uL (4.50-10.00)
[2021-06-08 00:26] LABS: ALT 29 U/L (10-49); AST 28 U/L (14-35); African American GFR (CKD) 134.4 (60.0-200.0); Albumin 4.5 g/dL (3.8-4.9); Alkaline Phosphatase 84 U/L (41-126); Amylase 29 U/L (23-121); BUN/Creat Ratio 14.42 Ratio (12.00-20.00); Blood Urea Nitrogen 11.1 mg/dL (9.0-27.0); Carbon Dioxide 23.9 mmol/L (20.0-27.5); Chloride 102 mmol/L (96-109); Chol/HDL Ratio 5.34 Ratio; Globulin 2.7 g/dL (1.6-3.3); Glucose 96 mg/dL (70-110); LDL Cholesterol,Calculated 113.3 mg/dL (0.0-131.0); Lipase 44 U/L (14-60); Non-African American GFR(CKD) 115.9 (60.0-200.0); Potassium 3.8 mmol/L (3.5-5.5); Sodium 138 mmol/L (135-145); Total Bilirubin <0.15 mg/dL (0.30-1.20); Total Protein 7.2 g/dL (6.2-8.2)
== END | disposition home or self-care (01) ==
LOC: LABWHC1 14:51
PROVIDERS: ATTEND Family Medicine
DX: I10 Essential (primary) hypertension (principal); E78.2 Mixed hyperlipidemia; R11.2 Nausea with vomiting, unspecified
CPT/HCPCS: 36415; 80053; 80061; 82150; 82306; 82533; 83690; 83835; 84443; 85025

== ENCOUNTER 2022-07-24 05:34 | Day surgery (SDC) | payer BC, OTHER ==
[~2022-07-24 05:34] MED LIST changes: -DEXAMETHASONE SOD PHOSPHATE 4 MG/ML 1 ML VIAL IV ONE; -HYDROmorphone 0.5 MG/0.5 ML SYRINGE IVP PRN; -LACTATED RINGERS 1,000 ML IV SCH; -LIDOCAINE 1% (10MG/ML) FOR IV START INTRADERMA PRN; -ONDANSETRON 4 MG/2 ML VIAL IVP ONE; -SCOPOLAMINE 1.5MG/72HR PATCH TRANSDERM ONE
[2022-07-24] MEDS ORDERED: HYDROmorphone 0.5 MG/0.5 ML SYRINGE IVP PRN (05:45)
[2022-07-24] MEDS ORDERED: DEXAMETHASONE SOD PHOSPHATE 4 MG/ML 1 ML VIAL IV ONE (05:45)
[2022-07-24] MEDS ORDERED: ONDANSETRON 4 MG/2 ML VIAL IVP ONE (05:45)
[2022-07-24] MEDS: LACTATED RINGERS 1,000 ML IV SCH ×4 (06:33→10:25)
[2022-07-24] MEDS ORDERED: MIDAZOLAM 2 MG/2 ML VIAL IVP ONE (07:03)
[2022-07-24] MEDS ORDERED: fentaNYL (PF) 50 MCG/ML 2 ML AMP IVP ONE (07:03)
[2022-07-24] MEDS ORDERED: ROCURONIUM 10 MG/ML (5 ML VIAL) IV ONE (07:29)
[2022-07-24] MEDS ORDERED: MIDAZOLAM 2 MG/2 ML VIAL ONE (07:29)
[2022-07-24] MEDS ORDERED: PROPOFOL 10 MG/ML 20 ML VIAL IV ONE (07:29)
[2022-07-24] MEDS ORDERED: KETOROLAC 15 MG/ML 1 ML VIAL ONE (07:29)
[2022-07-24] MEDS ORDERED: fentaNYL (PF) 50 MCG/ML 2 ML AMP ONE (07:29)
[2022-07-24] MEDS ORDERED: SUCCINYLCHOLINE CHLORIDE 200 MG/10 ML VIAL IV ONE (07:29)
[2022-07-24] MEDS ORDERED: NEOSTIGMINE 1 MG/ML 10 ML VIAL ONE (07:29)
[2022-07-24] MEDS ORDERED: GLYCOPYRROLATE 0.2 MG/ML 2 ML VIAL ONE (07:29)
[2022-07-24] MEDS ORDERED: LIDOCAINE 2% INJ 20 MG/ML (2 ML VIAL) ONE (07:29)
[2022-07-24] MEDS ORDERED: KETAMINE 10 MG/ML 20 ML VIAL ONE (07:29)
[2022-07-24] MEDS ORDERED: ROPIVACAINE 5 MG/ML 30 ML VIAL ONE (07:29)
[2022-07-24] MEDS ORDERED: BUPIVACAINE (PF) 0.25% 30 ML VIAL SQ ONE ×2 (07:52→08:02)
--- NOTE | 2022-07-24 08:22 | P.OP ---
Date of Procedure: 07/24/22 Preoperative Diagnosis: Recurrent right inguinal hernia Postoperative Diagnosis: Recurrent right inguinal hernia Procedure(s) Performed: Open repair of recurrent right internal hernia Implants: Prolene hernia mesh system plug Anesthesia: DODIEA Surgeon: Raphael Gallegos Estimated Blood Loss (ml): 5 Pathology: none sent Condition: stable Disposition: PACU Description of Procedure: DESCRIPTION OF PROCEDURE: The patient was placed in the supine position after receiving adequate anesthesia. Patients groin was prepped and draped in the usual sterile fashion. A standard hernia incision was made and the subcutaneous tissues were divided with electrocautery. The fascia of the external oblique was exposed. A homa the fascia was made with #15 blade. The fascia was then opened with pair of Metzenbaum scissors. A Weitlaner retractor was placed in the wound and the cord structures were grasped and dissected free from the inguinal canal. A rubber Kai drain was placed around the cord structures. The hernial sac was seen on the anterior-medial portion of the cord and this was dissected free from the cord. The hernia sac was then invaginated to the peritoneal cavity. Using blunt finger dissection, the preperitoneal space was dissected and then the Prolene hernial mesh plug was placed into the prepared space. The inferior leaf was expanded. The superior leaf was secured to the pubic tubercle using 2-0 Prolene suture. The lateral portion of the superior leaf was incised and cords tied and secured to the transversalis fascia using 2-0 Prolene suture. Fascia of the external oblique was then closed using #0 Vicryl suture. The Kai drain was removed. The Scarpas fascia was then closed with 3-0 Vicryl suture and skin was closed with rudy. The patient tolerated the procedure well.
[2022-07-24] MEDS ORDERED: ALBUTEROL NEBULIZED 2.5 MG/3 ML INHALATION ONE (08:43)
[2022-07-24 08:51] VITALS: TEMP 96.9
--- NOTE | 2022-07-24 09:04 | P.ANPRN ---
Procedure Note - Anesthesia - Nerve Block Performed Right Erector Spinae Single Time Out Performed: Yes (0702) Date of Procedure: 07/24/22 Procedure Start Time: :03 Procedure Stop Time: :07 Location of Patient: PreOp Indication: Acute Post-Operative Pain, Requested by Surgeon Specifically requested for management of pain by DrMireya: Raphael Gallegos (\) Sedation Type: Sedate with meaningful contact maintained Preparation: Sterile Prep Position: Prone Catheter: None Needle Types: Pajunk Needle Gauge: 21 Ultrasound used to visualize needle placement: Yes Ultrasound used to observe medication spread: Yes Injectate: 0.5% Ropivacaine (see comment for volume) (30cc) Blood Aspirated: No Pain Paresthesia on Injection Noted: No Resistance on Injection: Normal Image Stored and Saved: Yes Events: Uneventful and Well Tolerated
[2022-07-24 10:14] VITALS: BP 137/91; PULSE 80; RESP 94
== END 2022-07-24 10:26 | disposition home or self-care (01) ==
LOC: OR 05:34
PROVIDERS: ATTEND Surgery
DX: K40.91 Unilateral inguinal hernia, without obstruction or gangrene, recurrent (principal); I10 Essential (primary) hypertension; E78.5 Hyperlipidemia, unspecified; J44.9 Chronic obstructive pulmonary disease, unspecified; F17.200 Nicotine dependence, unspecified, uncomplicated; K75.9 Inflammatory liver disease, unspecified; Z79.899 Other long term (current) drug therapy
CPT/HCPCS: 64999; 49520; C1781; J2250; J0330; J1100; J2710; J0690; J2405; J3010; J2795; J1885; J2704; J1644; J2001

== ENCOUNTER 2022-09-21 09:53 | Day surgery (SDC) | payer BC ==
[2022-09-20 10:24] VITALS: BMI 27.4
[~2022-09-21 09:53] MED LIST changes: -ACETAMINOPHEN TAB 500 MG TAB PO PRN; -HEPARIN SODIUM,PORCINE/PF 5,000 UNIT/0.5 ML SYRINGE SQ PRN; +LACTATED RINGERS 1,000 ML IV SCH; +LIDOCAINE 1% (10MG/ML) FOR IV START INTRADERMA PRN; +ONDANSETRON 4 MG/2 ML VIAL IVP PRN
[2022-09-21 10:08] VITALS: TEMP 97.7
[2022-09-21] MEDS ORDERED: PROPOFOL 10 MG/ML 20 ML VIAL IV ONE (11:07)
--- NOTE | 2022-09-21 11:23 | P.PCN ---
Date of Procedure: 09/21/22 Procedure(s) Performed: Brief history: Patient is a pleasant 36-year-old white male scheduled for an elective upper endoscopy as well as colonoscopy as a part of evaluation of chronic intermittent nausea vomiting of several years duration. He has these episodes once or twice a week. He also completed severe chronic diarrhea with bowel movements anywhere from 5-10 a day which are loose to watery in consistency but no blood in the stool. Procedure performed: Esophagogastroduodenoscopy with biopsy Colonoscopy with biopsy Preoperative diagnosis: Chronic intermittent nausea vomiting Chronic diarrhea Anesthesia: MAC Procedure: After informed consent was obtained from the patient was brought into the endoscopy unit and IV sedation was administered by anesthesia under continuous monitoring. Initially upper endoscopy was done. The Olympus GF 160 video endoscope was inserted inserted into the mouth and esophagus intubated without any difficulty and was gradually advanced into the stomach and duodenum and carefully examined. The bulb and second part of the duodenum appeared normal. Biopsies were done from the duodenum to rule out celiac disease. The scope was then withdrawn into the stomach adequately insufflated with air and upon careful examination the antrum had mild erythema and biopsies were done from this area. Mucosa of the body, cardia and fundus appeared normal. Small hiatal hernia noted. The scope was then withdrawn into the esophagus. The GE junction was located at 40 cm to the incisors. It appeared regular with no erythema erosions or ulcerations. Rest of the esophagus appeared normal. Patient tolerated the procedure well. At this time the patient continued to remain sedation. Initial digital rectal examination was normal. Olympus CF 160 video colonoscope was then inserted into the rectum and gradually advanced to the cecum without any difficulty. Careful examination was performed as the scope was gradually being withdrawn. The prep was excellent. The cecum, ascending colon, transverse colon, descending colon, sigmoid colon and rectum appeared normal. There are scattered sigmoid diverticula cyst noted. The sigmoid: Between 20-30 cm from the anal verge there were patchy areas of erythema with no erosions or ulcerations and biopsies were done from this area. Random biopsies were done from ascending and descending colon to rule out microscopic/collagenous colitis. Retroflexion was performed in the rectum and no lesions were noted. Patient tolerated the procedure well. Impression: 1. Upper endoscopy revealed small hiatal hernia and mild antral gastritis 2. Colonoscopy revealed scattered sigmoid diverticulosis and patchy areas of erythema in the sigmoid colon extending from 20-30 cm from the anal verge possibly related to mild diverticular related colitis Recommendations: Findings of this examination were discussed with the patient as well as his family. He was advised to follow with the biopsy results. Recommend repeat screening colonoscopy in 10 years. In the meantime he will continue with his current medications and follow antireflux measures.
[2022-09-21 11:30] VITALS: RESP 16
[2022-09-21 11:44] VITALS: BP 161/99; PULSE 68
== END 2022-09-21 11:58 ==
LOC: ORWHC2ENDO 09:53
PROVIDERS: ATTEND Internal Medicine Gastroenterology
DX: K29.70 Gastritis, unspecified, without bleeding (principal); K31.9 Disease of stomach and duodenum, unspecified; K44.9 Diaphragmatic hernia without obstruction or gangrene; K57.30 Diverticulosis of large intestine without perforation or abscess without bleeding; K63.89 Other specified diseases of intestine; Z79.51 Long term (current) use of inhaled steroids; K21.00 Gastro-esophageal reflux disease with esophagitis, without bleeding; I10 Essential (primary) hypertension; E78.5 Hyperlipidemia, unspecified; J44.9 Chronic obstructive pulmonary disease, unspecified; F17.200 Nicotine dependence, unspecified, uncomplicated; F12.10 Cannabis abuse, uncomplicated
CPT/HCPCS: 88305; 45380; 43239; J2704

== ENCOUNTER 2023-03-26 10:52 | Inpatient (IN) | payer BC, OTHER ==
[2023-03-26] MEDS: ACETAMINOPHEN TAB 325 MG TAB PO STA (11:41)
[2023-03-26] MEDS: methylPREDNISolone SOD SUCCI 125 MG/2 ML VIAL IV STA (11:42)
--- NOTE | 2023-03-26 11:45 | ED ---
SOB HPI - General Chief Complaint: Upper Respiratory Infection Stated Complaint: YOGI,COUGH Time Seen by Provider: 03/26/23 11:26 Source: patient, RN notes reviewed Mode of arrival: wheelchair Limitations: no limitations - History of Present Illness Initial Comments: This is a 37-year-old male who presents to the emergency department for shortness of breath, coughing, and a sore throat. Symptoms began yesterday, states that it got so bad that he had to leave work. Reports a history of COPD and asthma. He used four breathing treatments earlier this morning without much relief in symptoms. States that his breathing is worse than it has been in a v [place] long time. Denies any chest pain. Also denies any sick contacts. He had an oxygen saturation of 87% in triage and was started on supplemental oxygen. States that he just finished a course of antibiotics and steroids for pneumonia. MD Complaint: shortness of breath, cough - Related Data Home Medications Medication Instructions Recorded Confirmed Albuterol Inhaler [Ventolin Hfa 2 puff INHALATION RT-Q6H PRN 02/21/21 03/26/23 Inhaler] Esomeprazole Magnesium [NexIUM] 40 mg PO DAILY 02/21/21 03/26/23 amLODIPine [Norvasc] 5 mg PO BID 07/20/22 03/26/23 Ipratropium-Albuterol Nebulize 3 ml INHALATION RT-Q6H PRN 03/26/23 03/26/23 [Duoneb 0.5 mg-3 mg/3 ml Soln] Allergies Allergy/AdvReac Type Severity Reaction Status Date / Time meperidine HCl [From Demerol] Allergy Rash/Hives Verified 03/26/23 14:47 Review of Systems ROS Statement: Those systems with pertinent positive or pertinent negative responses have been documented in the HPI. ROS Other: All systems not noted in ROS Statement are negative. Past Medical History Past Medical History: Asthma, COPD, GERD/Reflux, Hyperlipidemia, Hypertension Additional Past Medical History / Comment(s): Hx hepatitis C with tx, emphysema, neck pain, nausea History of Any Multi-Drug Resistant Organisms: None Reported Past Surgical History: Cholecystectomy, Hernia Repair, Tonsillectomy Additional Past Surgical History / Comment(s): robotic laparoscopic repair right inguinal hernia 2021, Open right inguinal hernia repair, egd and colonoscopy Past Anesthesia/Blood Transfusion Reactions: No Reported Reaction Additional Past Anesthesia/Blood Transfusion Reaction / Comment(s): states sometimes it takes longer to wake up after surgery Past Psychological History: No Psychological Hx Reported Smoking Status: Current every day smoker, Vaper Past Alcohol Use History: None Reported Past Drug Use History: Marijuana - Past Family History Mother Family Medical History: Coronary Artery Disease (CAD) General Exam Limitations: no limitations General appearance: alert, in no apparent distress Head exam: Present: atraumatic, normocephalic, normal inspection ENT exam: Present: other (Posterior pharyngeal erythema with 3+ tonsillar hypertrophy and exudates.) Respiratory exam: Present: wheezes, decreased breath sounds, prolonged expiratory Cardiovascular Exam: Present: normal rhythm, tachycardia, normal heart sounds Neurological exam: Present: alert, oriented X3, CN II-XII intact Psychiatric exam: Present: normal affect, normal mood Skin exam: Present: warm, dry, intact, normal color. Absent: rash Course Vital Signs 03/26/23 03/26/23 03/26/23 11:15 11:40 11:45 Temperature 99.6 F 102.3 F H Pulse Rate 139 H 134 H Respiratory 27 H 26 H 26 H Rate Blood Pressure 150/85 O2 Sat by Pulse 89 L 91 L Oximetry 03/26/23 03/26/23 03/26/23 12:14 12:22 12:53 Temperature 102.3 F H Pulse Rate 137 H 135 H 133 H Respiratory 26 H Rate Blood Pressure 163/90 O2 Sat by Pulse 90 L Oximetry 03/26/23 03/26/23 03/26/23 13:44 14:14 14:42 Temperature 100.1 F H Pulse Rate 133 H 131 H Respiratory 24 24 Rate Blood Pressure 152/99 O2 Sat by Pulse 89 L 91 L Oximetry 03/26/23 03/26/23 03/26/23 14:46 15:01 15:14 Temperature Pulse Rate 131 H 109 H Respiratory Rate Blood Pressure O2 Sat by Pulse 91 L Oximetry 03/26/23 03/26/23 03/26/23 15:17 15:40 16:41 Temperature Pulse Rate 110 H 112 H 113 H Respiratory 20 20 18 Rate Blood Pressure 117/82 O2 Sat by Pulse 92 L 94 L 94 L Oximetry 03/26/23 17:00 Temperature Pulse Rate 114 H Respiratory 22 Rate Blood Pressure 128/78 O2 Sat by Pulse 93 L Oximetry Medical Decision Making - Medical Decision Making This is a 37-year-old male who presents to the emergency department for coughing and shortness of breath. Was pt. sent in by a medical professional or institution? @ -No Did you speak to anyone other than the patient for history? @ -No Did you review nursing and triage notes? @ -Yes, and I agree, it is accurate with regards to the patient's symptoms. Were old charts reviewed? @ -No Differential Diagnosis? @ -Differential Dyspnea: Coronary syndrome, arrhythmia, tamponade, asthma, COPD, pulmonary embolism, pneumonia, pneumothorax, pulmonary effusion, anaphylaxis, diabetic ketoacidosis, flailed chest, pulmonary contusion, diaphragmatic rupture, anemia, neuro muscular, this is not meant to be an all-inclusive list. EKG interpreted by me (3pts min.)? @ -EKG interpreted by me demonstrating the following: Sinus tachycardia with frequent PVCs. Ventricular rate 138 beats per minute, MS interval 145 ms, QRS duration 85 ms, QTC 413 ms. X-rays interpreted by me (1pt min.)? @ -Chest x-ray obtained, my interpretation identifies no localized consolidations or infiltrates. CT interpreted by me (1pt min.)? @ -CT angiogram of the chest obtained. My interpretation identifies no evidence of a pulmonary embolus. U/S interpreted by me (1pt. min.)? @ -Not obtained What testing was considered but not performed? (CT, X-rays, U/S, labs)? Why? @ -None What meds were considered but not given? Why? @ -None Did you discuss the management of the patient with other professionals? @ -Yes, Dr. Russell, who accepts the patient for admission. Did you reconcile home meds? @ -Yes Was smoking cessation discussed for >3mins.? @ -I discussed smoking cessation for greater than 3 minutes. The risk of smoking were discussed with the patient including but not limited to risks of cancer, stroke, coronary artery disease and COPD. Also discussed with patient were multiple methods of quitting smoking. Lastly we discussed the financial cost of smoking. Was critical care preformed (if so, how long)? @ -No Were there social determinants of health that impacted care today? How? (Homelessness, low income, unemployed, alcoholism, drug addiction, transportation, low edu. Level, literacy, decrease access to med. care, prison, rehab)? @ -No Was there de-escalation of care discussed even if they declined? (Discuss DNR or withdrawal of care, Hospice)? @ -No What co-morbidities impacted this encounter? (DM, HTN, Smoking, COPD, CAD, Cancer, CVA, Hep., AIDS, mental health diagnosis, sleep apnea, morbid obesity)? @ -Asthma, COPD, smoking, HLD, HTN Was patient admitted / discharged? @ -Discharged. Lab work obtained revealing leukocytosis and an elevated lactic acid of 3.5. He tested positive for influenza A. Patient was hypoxic on room air on arrival, around 87%. He was also in notable respiratory distress with wheezing and decreased breath sounds on exam. He is also febrile and tachycardic. Chest x-ray reveals no acute process. D-dimer was elevated and CTA of the chest was obtained. This revealed no evidence of a pulmonary embolus. Patient started on a nasal cannula, which ended up having to be increased to 6 L. He maintained an oxygen saturation of 89-92% on 6 L. He did continue to remain tachycardic with a heart rate in the 130s. Patient does note that his heart rate tends to run on the higher side, but not this high. Patient was started on Tamiflu for influenza A and admitted to medicine for associated hypoxia requiring supplemental oxygen and tachycardia. Consult placed for pulmonology. Undiagnosed new problem with uncertain prognosis? @ -None Drug Therapy requiring intensive monitoring for toxicity (Heparin, Nitro, Insulin, Cardizem)? @ -None Were any procedures done? @ -None Diagnosis/symptom? @ -Influenza A, hypoxia, tachycardia Acute, or Chronic, or Acute on Chronic? @ -Acute Uncomplicated (without systemic symptoms) or Complicated (systemic symptoms)? @ -Complicated Side effects of treatment? @ -None Exacerbation, Progression, or Severe Exacerbation] @ -Not applicable Poses a threat to life or bodily function? @ -Yes This case was discussed in detail with the attending ED physician, Dr. Dumont. Presentation, findings, and treatment plan discussed in detail as well. - Lab Data Result diagrams: 03/27/23 09:23 03/28/23 07:17 Lab Results 03/26/23 03/26/23 03/26/23 Range/Units 11:39 11:39 11:39 WBC 14.6 H (3.8-10.6) k/uL RBC 5.85 (4.30-5.90) m/uL Hgb 17.3 (13.0-17.5) gm/dL Hct 49.5 (39.0-53.0) % MCV 84.5 (80.0-100.0) fL MCH 29.6 (25.0-35.0) pg MCHC 35.0 (31.0-37.0) g/dL RDW 13.2 (11.5-15.5) % Plt Count 197 (150-450) k/uL MPV 7.3 Neutrophils % 94 % Lymphocytes % 1 % Monocytes % 4 % Eosinophils % 1 % Basophils % 0 % Neutrophils # 13.7 H (1.3-7.7) k/uL Lymphocytes # 0.2 L (1.0-4.8) k/uL Monocytes # 0.5 (0-1.0) k/uL Eosinophils # 0.1 (0-0.7) k/uL Basophils # 0.0 (0-0.2) k/uL PT 12.2 (10.0-12.5) sec INR 1.1 (<1.2) APTT 27.2 (22.0-30.0) sec D-Dimer 2.16 H (<0.60) mg/L FEU Sodium 140 (137-145) mmol/L Potassium 3.4 L (3.5-5.1) mmol/L Chloride 105 (98-107) mmol/L Carbon Dioxide 21 L (22-30) mmol/L Anion Gap 14 mmol/L BUN 12 (9-20) mg/dL Creatinine 0.79 (0.66-1.25) mg/dL Est GFR (CKD-EPI)AfAm >90 (>60 ml/min/1.73 sqM) Est GFR (CKD-EPI)NonAf >90 (>60 ml/min/1.73 sqM) Glucose 158 H (74-99) mg/dL Lactic Ac Sepsis Rflx Plasma Lactic Acid Arturo (0.7-2.0) mmol/L Calcium 9.4 (8.4-10.2) mg/dL Total Bilirubin 0.5 (0.2-1.3) mg/dL AST 42 (17-59) U/L ALT 49 (4-49) U/L Alkaline Phosphatase 87 (38-126) U/L Troponin I (0.000-0.034) ng/mL C-Reactive Protein (<1.0) mg/dL Total Protein 7.6 (6.3-8.2) g/dL Albumin 4.5 (3.5-5.0) g/dL Procalcitonin (0.02-0.09) ng/mL Influenza Type A (PCR) (Not Detectd) Influenza Type B (PCR) (Not Detectd) RSV (PCR) (Not Detectd) SARS-CoV-2 (PCR) (Not Detectd) Group A Strep (PCR) (Not Detectd) 03/26/23 03/26/23 03/26/23 Range/Units 11:39 11:39 11:39 WBC (3.8-10.6) k/uL RBC (4.30-5.90) m/uL Hgb (13.0-17.5) gm/dL Hct (39.0-53.0) % MCV (80.0-100.0) fL MCH (25.0-35.0) pg MCHC (31.0-37.0) g/dL RDW (11.5-15.5) % Plt Count (150-450) k/uL MPV Neutrophils % % Lymphocytes % % Monocytes % % Eosinophils % % Basophils % % Neutrophils # (1.3-7.7) k/uL Lymphocytes # (1.0-4.8) k/uL Monocytes # (0-1.0) k/uL Eosinophils # (0-0.7) k/uL Basophils # (0-0.2) k/uL PT (10.0-12.5) sec INR (<1.2) APTT (22.0-30.0) sec D-Dimer (<0.60) mg/L FEU Sodium (137-145) mmol/L Potassium (3.5-5.1) mmol/L Chloride (98-107) mmol/L Carbon Dioxide (22-30) mmol/L Anion Gap mmol/L BUN (9-20) mg/dL Creatinine (0.66-1.25) mg/dL Est GFR (CKD-EPI)AfAm (>60 ml/min/1.73 sqM) Est GFR (CKD-EPI)NonAf (>60 ml/min/1.73 sqM) Glucose (74-99) mg/dL Lactic Ac Sepsis Rflx Plasma Lactic Acid Arturo 3.5 H* (0.7-2.0) mmol/L Calcium (8.4-10.2) mg/dL Total Bilirubin (0.2-1.3) mg/dL AST (17-59) U/L ALT (4-49) U/L Alkaline Phosphatase (38-126) U/L Troponin I <0.012 (0.000-0.034) ng/mL C-Reactive Protein (<1.0) mg/dL Total Protein (6.3-8.2) g/dL Albumin (3.5-5.0) g/dL Procalcitonin (0.02-0.09) ng/mL Influenza Type A (PCR) (Not Detectd) Influenza Type B (PCR) (Not Detectd) RSV (PCR) (Not Detectd) SARS-CoV-2 (PCR) (Not Detectd) Group A Strep (PCR) NOT DETECTED (Not Detectd) 03/26/23 03/26/23 03/26/23 Range/Units 11:39 11:39 11:39 WBC (3.8-10.6) k/uL RBC (4.30-5.90) m/uL Hgb (13.0-17.5) gm/dL Hct (39.0-53.0) % MCV (80.0-100.0) fL MCH (25.0-35.0) pg MCHC (31.0-37.0) g/dL RDW (11.5-15.5) % Plt Count (150-450) k/uL MPV Neutrophils % % Lymphocytes % % Monocytes % % Eosinophils % % Basophils % % Neutrophils # (1.3-7.7) k/uL Lymphocytes # (1.0-4.8) k/uL Monocytes # (0-1.0) k/uL Eosinophils # (0-0.7) k/uL Basophils # (0-0.2) k/uL PT (10.0-12.5) sec INR (<1.2) APTT (22.0-30.0) sec D-Dimer (<0.60) mg/L FEU Sodium (137-145) mmol/L Potassium (3.5-5.1) mmol/L Chloride (98-107) mmol/L Carbon Dioxide (22-30) mmol/L Anion Gap mmol/L BUN (9-20) mg/dL Creatinine (0.66-1.25) mg/dL Est GFR (CKD-EPI)AfAm (>60 ml/min/1.73 sqM) Est GFR (CKD-EPI)NonAf (>60 ml/min/1.73 sqM) Glucose (74-99) mg/dL Lactic Ac Sepsis Rflx Plasma Lactic Acid Arturo (0.7-2.0) mmol/L Calcium (8.4-10.2) mg/dL Total Bilirubin (0.2-1.3) mg/dL AST (17-59) U/L ALT (4-49) U/L Alkaline Phosphatase (38-126) U/L Troponin I (0.000-0.034) ng/mL C-Reactive Protein 16.9 H (<1.0) mg/dL Total Protein (6.3-8.2) g/dL Albumin (3.5-5.0) g/dL Procalcitonin 0.17 H (0.02-0.09) ng/mL Influenza Type A (PCR) Detected A (Not Detectd) Influenza Type B (PCR) Not Detected (Not Detectd) RSV (PCR) Not Detected (Not Detectd) SARS-CoV-2 (PCR) Not Detected (Not Detectd) Group A Strep (PCR) (Not Detectd) 03/26/23 Range/Units 12:29 WBC (3.8-10.6) k/uL RBC (4.30-5.90) m/uL Hgb (13.0-17.5) gm/dL Hct (39.0-53.0) % MCV (80.0-100.0) fL MCH (25.0-35.0) pg MCHC (31.0-37.0) g/dL RDW (11.5-15.5) % Plt Count (150-450) k/uL MPV Neutrophils % % Lymphocytes % % Monocytes % % Eosinophils % % Basophils % % Neutrophils # (1.3-7.7) k/uL Lymphocytes # (1.0-4.8) k/uL Monocytes # (0-1.0) k/uL Eosinophils # (0-0.7) k/uL Basophils # (0-0.2) k/uL PT (10.0-12.5) sec INR (<1.2) APTT (22.0-30.0) sec D-Dimer (<0.60) mg/L FEU Sodium (137-145) mmol/L Potassium (3.5-5.1) mmol/L Chloride (98-107) mmol/L Carbon Dioxide (22-30) mmol/L Anion Gap mmol/L BUN (9-20) mg/dL Creatinine (0.66-1.25) mg/dL Est GFR (CKD-EPI)AfAm (>60 ml/min/1.73 sqM) Est GFR (CKD-EPI)NonAf (>60 ml/min/1.73 sqM) Glucose (74-99) mg/dL Lactic Ac Sepsis Rflx Y Plasma Lactic Acid Arturo (0.7-2.0) mmol/L Calcium (8.4-10.2) mg/dL Total Bilirubin (0.2-1.3) mg/dL AST (17-59) U/L ALT (4-49) U/L Alkaline Phosphatase (38-126) U/L Troponin I (0.000-0.034) ng/mL C-Reactive Protein (<1.0) mg/dL Total Protein (6.3-8.2) g/dL Albumin (3.5-5.0) g/dL Procalcitonin (0.02-0.09) ng/mL Influenza Type A (PCR) (Not Detectd) Influenza Type B (PCR) (Not Detectd) RSV (PCR) (Not Detectd) SARS-CoV-2 (PCR) (Not Detectd) Group A Strep (PCR) (Not Detectd) - Radiology Data Radiology results: report reviewed, image reviewed Disposition Clinical Impression: Influenza A, Hypoxemia, Tachycardia, Nicotine dependence Disposition: ADMITTED IP TO THIS [facility] Time of Disposition: 14:39
[2023-03-26 11:57] LABS: Basophils % (A) 0 %; Eosinophils # (A) 0.1 k/uL (0-0.7); Eosinophils % (A) 1 %; HCT 49.5 % (39.0-53.0); HGB 17.3 gm/dL (13.0-17.5); Lymphocytes # (A) 0.2 k/uL (1.0-4.8); Lymphocytes % (A) 1 %; MCH 29.6 pg (25.0-35.0); MCV 84.5 fL (80.0-100.0); Mean Platelet Volume 7.3; Monocytes # (A) 0.5 k/uL (0-1.0); Monocytes % (A) 4 %; Neutrophils # (A) 13.7 k/uL (1.3-7.7); Neutrophils % (A) 94 %; Platelet Count 197 k/uL (150-450); RBC 5.85 m/uL (4.30-5.90); RDW 13.2 % (11.5-15.5); WBC 14.6 k/uL (3.8-10.6)
[2023-03-26 12:12] LABS: ALT 49 U/L (4-49); AST 42 U/L (17-59); African American GFR (CKD) >90 (>60 ml/min/1.73 sqM); Albumin 4.5 g/dL (3.5-5.0); Alkaline Phosphatase 87 U/L (38-126); Anion Gap 14 mmol/L; Blood Urea Nitrogen 12 mg/dL (9-20); Calcium 9.4 mg/dL (8.4-10.2); Carbon Dioxide 21 mmol/L (22-30); Chloride 105 mmol/L (98-107); Glucose 158 mg/dL (74-99); INR 1.1 (<1.2); Non-African American GFR(CKD) >90 (>60 ml/min/1.73 sqM); Partial Thromboplastin Time 27.2 sec (22.0-30.0); Potassium 3.4 mmol/L (3.5-5.1); Prothrombin Time 12.2 sec (10.0-12.5); Sodium 140 mmol/L (137-145); Total Bilirubin 0.5 mg/dL (0.2-1.3); Total Protein 7.6 g/dL (6.3-8.2)
[2023-03-26] MEDS: IPRATROPIUM-ALBUTEROL 3 ML NEB INHALATION STA ×2 (12:14→14:46)
--- NOTE | 2023-03-26 12:31 | XR ---
EXAMINATION TYPE: XR chest 2V DATE OF EXAM: 03/26/2023 COMPARISON: 09/20/2020 TECHNIQUE: PA and lateral views submitted. HISTORY: Difficulty breathing FINDINGS: The lungs are clear and there is no pneumothorax, pleural effusion, or focal pneumonia. Heart size normal and no overt failure. Osseous structures demonstrate hypertrophic and degenerative changes of the spine. Emphysematous changes with left-sided linear atelectasis or scarring. IMPRESSION: 1. No acute process. Correlate for COPD.
[2023-03-26] MEDS: SODIUM CHLORIDE 0.9% 2,000 ML IV STA (12:52)
[2023-03-26] MEDS: IBUPROFEN 800 MG TAB PO STA (13:05)
[2023-03-26] MEDS: OSELTAMIVIR 75 MG CAP PO STA (13:05)
--- NOTE | 2023-03-26 13:59 | CT ---
EXAMINATION TYPE: CT chest angio for PE CT DLP: 309.2 mGycm, Automated exposure control for dose reduction was used. DATE OF EXAM: 03/26/2023 1:41 PM COMPARISON: None CLINICAL INDICATION:Male, 37 years old with history of YOGI, tachycardia, elevated d-dimer; cough TECHNIQUE/CONTRAST: CTA scan of the thorax is performed with IV Contrast, patient injected with 70 mL of Isovue 370, MIP images are created and reviewed these are created on a separate workstation.. FINDINGS: Pulmonary Artery: There is no evidence for a filling defect within the pulmonary vasculature to sugge st acute pulmonary embolism. The pulmonary artery is of normal size. Lungs/Pleura: No evidence of focal consolidation, pleural effusion or pneumothorax. Centrilobular vero ma changes seen throughout the lungs. Streaky scarring scattered throughout the lungs also present. R ight major fissure intrafissural lymph node series 411 image 65. And on the left series 411 image 70- 74 Airway: Large airways are patent. Heart: Heart is within normal limits for size. Vasculature: No evidence of aortic aneurysm. Mediastinum: No gross evidence of adenopathy. Musculoskeletal: Moderate degenerative disc disease changes are present throughout the thoracolumbar spine. Soft Tissues: Unremarkable. Lower neck: No significant findings. Upper Abdomen: Right upper quadrant cholecystectomy clips. Fat stranding changes around the left adre nal gland new from prior 06/25/2022. IMPRESSION: 1. No evidence of pulmonary embolism. 2. Moderate emphysema with a background of streaky atelectasis/scarring. 3. Indeterminate fat stranding around the left adrenal gland could be secondary new trauma from prior on 06/25/2022,.
[2023-03-26] MEDS ORDERED: MORPHINE SULFATE 4 MG/ML SYRINGE IV PRN (14:39)
[2023-03-26] MEDS ORDERED: ONDANSETRON 4 MG/2 ML VIAL IVP PRN (14:39)
[2023-03-26] MEDS ORDERED: NALOXONE 0.4 MG/ML 1 ML VIAL IV PRN (14:39)
[2023-03-26] MEDS ORDERED: IBUPROFEN 400 MG TAB PO PRN (14:39)
[2023-03-26] MEDS: ALBUTEROL NEBULIZED 2.5 MG/3 ML INHALATION STA (14:43)
[2023-03-26] MEDS: LABETALOL 5 MG/ML VIAL MDV IVP STA (14:51)
[2023-03-26] MEDS: SODIUM CHLORIDE 0.9% 1,000 ML IV SCH (14:54)
[2023-03-26] MEDS: cefTRIAXone IN SWFI 1,000 MG/10 ML SYRINGE IVP STA (16:10)
[2023-03-26] MEDS: SYMBICORT 160-4.5 MCG INHALER INHALATION SCH (17:56)
[2023-03-26] MEDS: methylPREDNISolone SOD SUCCI 125 MG/2 ML VIAL IV SCH (18:11)
[2023-03-26] MEDS: MELATONIN 5 MG TABLET PO PRN (21:29)
[2023-03-26] MEDS: ALPRAZolam 0.25 MG TAB PO PRN (21:29)
[2023-03-26] MEDS: amLODIPine 5 MG TAB PO SCH (21:29)
[2023-03-26] MEDS: ACETAMINOPHEN TAB 325 MG TAB PO PRN (21:30)
[2023-03-26] MEDS: HEPARIN SODIUM,PORCINE 5,000 UNIT/ML 1 ML VIAL SQ SCH (21:31)
--- NOTE | 2023-03-26 21:46 | P.CNPUL ---
History of Present Illness Consult date: 03/26/23 Reason for consult: dyspnea History of present illness: This is a 37-year-old male patient, a chronic smoker with known history of COPD, came into the emergency department having worsening shortness of breath. The patient generalized weakness, body aches, increased sore throat, cough and congestion and chest tightness and wheezing along with significant limitation in exercise capacity. 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 Noted he was being treated with antibiotics earlier given to him by his primary care physician. In the emergency, the patient checked positive for influenza A. The rest of the viral panel was negative. Chest x-ray was completed and the patient was found to have background COPD without any acute cardiopulmonary process. Similar findings were also identified on the CAT scan of the chest utilizing CTA protocol as the patient was found to have no evidence of any pulmonary embolism, no consolidation or airspace disease and the patient had emphysema with streaky areas of atelectasis and scarring. The patient accordingly was placed on oxygen and patient is currently on 62 total nasal cannula. He is also on bronchodilators and steroids and Tamiflu. He was started also on broad-spectrum antibiotics with IV Rocephin. Noted the patient has no maintenance inhalers regarding his COPD. He utilizes a nebulizer and he has albuterol rescue inhaler with him at all times. No history of childhood asthma. No hemoptysis. No pleurisy. No edema lower extremities. No angina. 1 seconds at 14.6 with a he moglobin of 17.3 and a platelet count of 197. D-dimer is at 2.1 and a CTA of the chest was negative. Lactic acid was at 3.5. BUN is at 12 with a creatinine of 0.7 and sodium levels of 140. Rest of the LFTs are essentially within normal limits. He is awake and alert and oriented and communicating at this point in time. Review of Systems Constitutional: Reports fatigue, Reports fever, Reports poor appetite Eyes: denies as per HPI, denies blurred vision, denies bulging eye, denies decreased vision, denies diplopia, denies discharge, denies dry eye, denies irritation, denies itching, denies pain, denies photophobia, denies loss of peripheral vision, denies loss of vision, denies tunnel vision/blind spots Ears: deny: decreased hearing, ear discharge, earache, tinnitus Ears, nose, mouth and throat: Reports as per HPI Breasts: absent: as per HPI, gynecomastia Cardiovascular: Reports decreased exercise tolerance, Reports dyspnea on exertion Respiratory: Reports cough, Reports dyspnea Gastrointestinal: Reports as per HPI Genitourinary: Reports as per HPI Musculoskeletal: Reports as per HPI Musculoskeletal: absent: ankle pain, ankle stiffness, ankle swelling Integumentary: Reports as per HPI Neurological: Reports as per HPI Psychiatric: Reports as per HPI Endocrine: Reports as per HPI Hematologic/Lymphatic: Reports as per HPI Allergic/Immunologic: Reports as per HPI Past Medical History Past Medical History: Asthma, COPD, GERD/Reflux, Hyperlipidemia, Hypertension Additional Past Medical History / Comment(s): Hx hepatitis C with tx, emphysema, neck pain, nausea History of Any Multi-Drug Resistant Organisms: None Reported Past Surgical History: Cholecystectomy, Hernia Repair, Tonsillectomy Additional Past Surgical History / Comment(s): robotic laparoscopic repair right inguinal hernia 2021, Open right inguinal hernia repair, egd and colonoscopy Past Anesthesia/Blood Transfusion Reactions: No Reported Reaction Additional Past Anesthesia/Blood Transfusion Reaction / Comment(s): states sometimes it takes longer to wake up after surgery Past Psychological History: No Psychological Hx Reported Smoking Status: Current every day smoker, Vaper Past Alcohol Use History: None Reported Past Drug Use History: Marijuana - Past Family History Mother Family Medical History: Coronary Artery Disease (CAD) Medications and Allergies Home Medications Medication Instructions Recorded Confirmed Type Albuterol Inhaler [Ventolin Hfa 2 puff INHALATION RT-Q6H PRN 02/21/21 03/26/23 History Inhaler] Esomeprazole Magnesium [NexIUM] 40 mg PO DAILY 02/21/21 03/26/23 History amLODIPine [Norvasc] 5 mg PO BID 07/20/22 03/26/23 History Ipratropium-Albuterol Nebulize 3 ml INHALATION RT-Q6H PRN 03/26/23 03/26/23 History [Duoneb 0.5 mg-3 mg/3 ml Soln] Allergies Allergy/AdvReac Type Severity Reaction Status Date / Time meperidine HCl [From Demerol] Allergy Rash/Hives Verified 03/26/23 14:47 Physical Exam Vitals: Vital Signs Temp Pulse Pulse Resp BP BP Pulse Ox 03/26/23 20:00 98.5 F 116 H 18 141/99 95 03/26/23 18:58 98.4 F 117 H 18 146/96 94 L 03/26/23 17:00 114 H 22 128/78 93 L 03/26/23 16:41 113 H 18 94 L 03/26/23 15:40 112 H 20 94 L 03/26/23 15:17 110 H 20 117/82 92 L 03/26/23 15:14 91 L 03/26/23 15:01 109 H 03/26/23 14:46 131 H 03/26/23 14:42 131 H 24 91 L 03/26/23 14:14 100.1 F H 03/26/23 13:44 133 H 24 152/99 89 L 03/26/23 12:53 102.3 F H 133 H 26 H 163/90 90 L 03/26/23 12:22 135 H 03/26/23 12:14 137 H 03/26/23 11:45 102.3 F H 134 H 26 H 91 L 03/26/23 11:40 26 H 03/26/23 11:15 99.6 F 139 H 27 H 150/85 89 L Intake and Output 03/26/23 03/26/23 03/26/23 06:59 14:59 22:59 Other: Weight 68.039 kg General appearance the patient is a mild degree of respiratory distress. Not using accessory muscles of breathing and the patient is currently on 6 L O2 nasal cannula head exam was generally normal. There was no scleral icterus or corneal arcus. Mucous membranes were moist. Neck was supple and without jugular venous distension, thyromegaly, or carotid bruits. Carotids were easily palpable bilaterally. There was no adenopathy. Lung sounds are diminished bilaterally and the patient has scant expiratory wheezes heard throughout the lung xavier Cardiac exam revealed the PMI to be normally situated and sized. The rhythm was regular and no extrasystoles were noted during several minutes of auscultation. The first and second heart sounds were normal and physiologic splitting of the second heart sound was noted. There were no murmurs, rubs, clicks, or gallops. Abdominal exam revealed normal bowel sounds. The abdomen was soft, non-tender, and without masses, organomegaly, or appreciable enlargement of the abdominal aorta. Examination of the extremities revealed easily palpable radial, femoral and p edal pulses. There was no cyanosis, clubbing or edema. Examination of the skin revealed no evidence of significant rashes, suspicious appearing nevi or other concerning lesions. Neurologically, the patient is awake and alert and the patient does not have any focal neurological deficit. Cranial nerves are essentially intact. Results - Laboratory Findings CBC and BMP: 03/26/23 11:39 03/26/23 11:39 PT/INR, D-dimer PT 12.2 sec (10.0-12.5) 03/26/23 11:39 INR 1.1 (<1.2) 03/26/23 11:39 D-Dimer 2.16 mg/L FEU (<0.60) H 03/26/23 11:39 Abnormal lab findings: Abnormal Labs 03/26/23 03/26/23 03/26/23 11:39 11:39 11:39 WBC 14.6 H Neutrophils # 13.7 H Lymphocytes # 0.2 L D-Dimer 2.16 H Potassium 3.4 L Carbon Dioxide 21 L Glucose 158 H Plasma Lactic Acid Arturo C-Reactive Protein Influenza Type A (PCR) 03/26/23 03/26/23 03/26/23 11:39 11:39 11:39 WBC Neutrophils # Lymphocytes # D-Dimer Potassium Carbon Dioxide Glucose Plasma Lactic Acid Arturo 3.5 H* C-Reactive Protein 16.9 H Influenza Type A (PCR) Detected A - Diagnostic Findings Chest x-ray: image reviewed CT scan - chest: image reviewed Assessment and Plan Plan: Acute exacerbation of COPD secondary to influenza A infection. Chest x-ray and CTA of the chest shows no evidence of any pneumonia. Acute influenza syndrome with influenza A infection, currently on Tamiflu. The patient is not vaccinated. Acute febrile illness secondary to above Constitutional symptoms along with generalized weakness and fatigue and bodyaches secondary to acute viral syndrome secondary to influenza A. Acute hypoxic respiratory failure and the patient is currently on 6 L O2 nasal cannula Chronic smoker Hypertension Hyperlipidemia History of hepatitis C infection Plan Supplement the patient with O2 to maintain a saturation above 90% currently on 6 L DuoNeb nebulizer treatments [id number] Symbicort 2 puffs twice a day as maintenance IV Solu-Medrol 60 mg every 6 hours Tamiflu Empiric antibiotic coverage with Rocephin although there is no clear indication for bacterial pneumonia Smoking cessation counseling Nicotine patch Tylenol for fever IV hydration with normal saline Will continue to follow.
--- NOTE | 2023-03-26 21:50 | P.CONS ---
History of Present Illness - Reason for Consult Consult date: 03/26/23 Flu Requesting physician: Lee Russell - Chief Complaint Sore throat increasing shortness of breath x 1 day - History of Present Illness Patient is a 37-year-old male with a past medical history significant for hypertension hyperlipidemia asthma COPD reflux history of hepatitis C s/p treatment patient presenting to the hospital for evaluation of increasing shor tness of breath and cough sore throat the patient symptoms started yesterday the day before presentation to the hospital mainly sore throat that started having increasing shortness of breath patient also have a cough which is moderate intensity and is bringing up some greenish sputum no hemoptysis patient denies having any pleuritic chest pain patient denies having any nausea no vomiting no abdominal pain, however complaining of some diarrhea with the symptoms the patient presented to the ER on arrival to the ER the patient was noticed to be febrile temperature of 102.3 F patient was tachycardic and hypoxic with O2 sats of 89% on room air currently on 8 L high flow oxygen patient did have white count of 14.6 with a left shift creatinine 0.79 electrolytes has been normal patient tested positive for influenza a RSV COVID testing was negative patient did have a chest x-ray no acute process correlate for COPD did have a CT angiogram of the chest no evidence of PE moderate emphysema and some scarring patient has been admitted to hospital infectious disease was consulted for further management of antibiotic therapy Review of Systems Positive point and negatives has been mentioned in the HPI, complete review of systems was performed and all other systems are negative Past Medical History Past Medical History: Asthma, COPD, GERD/Reflux, Hyperlipidemia, Hypertension Additional Past Medical History / Comment(s): Hx hepatitis C with tx, emphysema, neck pain, nausea History of Any Multi-Drug Resistant Organisms: None Reported Past Surgical History: Cholecystectomy, Hernia Repair, Tonsillectomy Additional Past Surgical History / Comment(s): robotic laparoscopic repair right inguinal hernia 2021, Open right inguinal hernia repair, egd and colonoscopy Past Anesthesia/Blood Transfusion Reactions: No Reported Reaction Additional Past Anesthesia/Blood Transfusion Reaction / Comm: states sometimes it takes longer to wake up after surgery Past Psychological History: No Psychological Hx Reported Smoking Status: Current every day smoker, Vaper Past Alcohol Use History: None Reported Past Drug Use History: Marijuana - Past Family History Mother Family Medical History: Coronary Artery Disease (CAD) Medications and Allergies Home Medications Medication Instructions Recorded Confirmed Type Albuterol Inhaler [Ventolin Hfa 2 puff INHALATION RT-Q6H PRN 02/21/21 03/26/23 History Inhaler] Esomeprazole Magnesium [NexIUM] 40 mg PO DAILY 02/21/21 03/26/23 History amLODIPine [Norvasc] 5 mg PO BID 07/20/22 03/26/23 History Acetaminophen Tab [Tylenol] 650 mg PO Q6HR PRN tab 03/29/23 Rx Budesonide-Formot 160-4.5 Mcg 2 puff INHALATION RT-BID 30 Days 03/29/23 Rx [Symbicort 160-4.5 Mcg Inhaler] #1 each Ibuprofen [Motrin] 400 mg PO Q6HR PRN #20 tab 03/29/23 Rx Ipratropium-Albuterol Nebulize 3 ml INHALATION RT-Q6H #100 each 03/29/23 Rx [Duoneb 0.5 mg-3 mg/3 ml Soln] Ipratropium-Albuterol Nebulize 3 ml INHALATION RT-Q6H PRN each 03/29/23 Rx [Duoneb 0.5 mg-3 mg/3 ml Soln] Nicotine 21Mg/24Hr Patch [Habitrol] 1 patch TRANSDERM DAILY #30 patch 03/29/23 Rx Oseltamivir [Tamiflu] 75 mg PO Q12HR 2 Days #4 cap 03/29/23 Rx cefUROXime axetiL [Ceftin] 500 mg PO BID 3 Days #6 tab 03/29/23 Rx predniSONE 10 mg PO DIRECTED #30 tab 03/29/23 Rx Allergies Allergy/AdvReac Type Severity Reaction Status Date / Time meperidine HCl [From Demerol] Allergy Rash/Hives Verified 03/26/23 14:47 Physical Exam Vitals: Vital Signs Temp Pulse Resp BP Pulse Ox 03/26/23 15:40 112 H 20 94 L 03/26/23 15:17 110 H 20 117/82 92 L 03/26/23 15:14 91 L 03/26/23 15:01 109 H 03/26/23 14:46 131 H 03/26/23 14:42 131 H 24 91 L 03/26/23 14:14 100.1 F H 03/26/23 13:44 133 H 24 152/99 89 L 03/26/23 12:53 102.3 F H 133 H 26 H 163/90 90 L 03/26/23 12:22 135 H 03/26/23 12:14 137 H 03/26/23 11:45 102.3 F H 134 H 26 H 91 L 03/26/23 11:40 26 H 03/26/23 11:15 99.6 F 139 H 27 H 150/85 89 L Intake and Output 03/26/23 03/26/23 03/26/23 06:59 14:59 22:59 Other: Weight 68.039 kg GENERAL DESCRIPTION: Middle-aged male lying in bed, no distress. No tachypnea or accessory muscle of respiration use. HEENT: Shows Pallor , no scleral icterus. Oral mucous membrane is dry. NECK: Trachea central, no thyromegaly. LUNGS: Unlabored breathing. Coarse breath sounds bilaterally. HEART: S1, S2, regular rate and rhythm. No loud murmur ABDOMEN: Soft, no tenderness , EXTREMITIES: No edema of feet. SKIN: No rash, no masses palpable. NEUROLOGICAL: The patient is awake, alert, oriented x3, mood and affect normal. Results CBC & Chem 7: 03/27/23 09:23 03/28/23 07:17 Labs: Abnormal Lab Results - Last 24 Hours (Table) 03/26/23 03/26/23 03/26/23 Range/Units 11:39 11:39 11:39 WBC 14.6 H (3.8-10.6) k/uL Neutrophils # 13.7 H (1.3-7.7) k/uL Lymphocytes # 0.2 L (1.0-4.8) k/uL D-Dimer 2.16 H (<0.60) mg/L FEU Potassium 3.4 L (3.5-5.1) mmol/L Carbon Dioxide 21 L (22-30) mmol/L Glucose 158 H (74-99) mg/dL Plasma Lactic Acid Arturo (0.7-2.0) mmol/L C-Reactive Protein (<1.0) mg/dL Influenza Type A (PCR) (Not Detectd) 03/26/23 03/26/23 03/26/23 Range/Units 11:39 11:39 11:39 WBC (3.8-10.6) k/uL Neutrophils # (1.3-7.7) k/uL Lymphocytes # (1.0-4.8) k/uL D-Dimer (<0.60) mg/L FEU Potassium (3.5-5.1) mmol/L Carbon Dioxide (22-30) mmol/L Glucose (74-99) mg/dL Plasma Lactic Acid Arturo 3.5 H* (0.7-2.0) mmol/L C-Reactive Protein 16.9 H (<1.0) mg/dL Influenza Type A (PCR) Detected A (Not Detectd) Assessment and Plan (1) Influenza A Status: Acute Code(s): J10.1 - FLU DUE TO OTH IDENT INFLUENZA VIRUS W OTH RESP MANIFEST SNOMED Code(s): 795148705 (2) Pneumonia Status: Acute Code(s): J18.9 - PNEUMONIA, UNSPECIFIED ORGANISM SNOMED Code(s): 175997170 (3) Sepsis Status: Acute Code(s): A41.9 - SEPSIS, UNSPECIFIED ORGANISM SNOMED Code(s): 22504305 Plan: 1patient presented to hospital with sepsis in this patient who did have a fever tachycardia elevated white count source is likely acute influenza A and concerning for COPD exacerbation with tracheobronchitis/early pneumonia as the patient did have elevated white count and is bringing up some greenish sputum 2we will request for a sputum for Gram stain culture check a CRP and a procalcitonin level 3Tamiflu 75 mg twice a day for 5 days 4empirically started on Rocephin and Zithromax while waiting for the culture to finalize We will follow on clinical condition and cultures to further adjust medication if needed Thank you for this consultation we will follow the patient along with you Dictation was produced using [employer] dictation software. please excuse any grammatical, word or spelling errors. Time with Patient: Greater than 30
--- NOTE | 2023-03-26 23:03 | HP ---
HISTORY AND PHYSICAL CHIEF COMPLAINT: Shortness of breath, cough, and congestion. HISTORY OF PRESENT ILLNESS: This is a 37-year-old gentleman with a past medical history of multiple medical problems including COPD, asthma, was recently diagnosed of pneumonia, but the patient has significant respiratory difficulties, coughing, and sore throat. The patient came to [facility] and flu A was positive. The chest x-ray showed bilateral extensive pneumonia also. The patient admitted for further evaluation and treatment. D-dimer was elevated at 2.16. The CT angio showed no evidence of pulmonary embolism. There is no history of any fever, rigors, or chills at this time. PAST MEDICAL HISTORY: History of COPD, asthma, history of recent pneumonia, GERD. Rest of the history and rest of the chart is also reviewed. History of hepatitis C. HOME MEDICATIONS: Reviewed include Norvasc. Doses and rest of medications reviewed. ALLERGIES: Meperidine. FAMILY HISTORY: History of CAD in the family. SOCIAL HISTORY: History of vaping. REVIEW OF SYSTEMS: A 14-point review is negative except as mentioned earlier. PHYSICAL EXAMINATION: VITAL SIGNS: Pulse is 110, blood pressure 117/82, respirations 20. HEENT: Conjunctivae normal. NECK: No JVD. CARDIOVASCULAR: S1, S2 muffled. RESPIRATIONS: Bilateral scattered rhonchi and crackles. Expiratory wheezing. Respiratory efforts are markedly increased. ABDOMEN: Soft, nontender. LEGS: No edema. No swelling. NERVOUS SYSTEM: No focal deficits. SKIN: No ulcer, rash, bleeding. JOINTS: No active deforming arthropathy. LABORATORY DATA: WBC 14.6, rest of the labs are noted. ASSESSMENT: 1. Acute influenza A as well as bilateral acute influenzae pneumonia with acute hypoxic respiratory failure. 2. Chronic obstructive pulmonary disease, asthma, acute exacerbation. 3. Elevated D-dimer without any evidence of pulmonary embolism. 4. Increased WBC. 5. History of hypertension. 6. History of hyperlipidemia. 7. History of hepatitis C. 8. Multiple medical issues. RECOMMENDATIONS AND DISCUSSION: This is a 37-year-old gentleman, who presented with multiple complex medical issues, we will monitor the patient closely. We will initiate Tamiflu. We will initiate broad- spectrum IV antibiotics. Obtain cultures. Consult Infectious Disease and Pulmonary. Overall prognosis is guarded because of multiple complex medical issues. I would also recommend high-dose IV steroids and also monitor blood sugars. DVT prophylaxis. Resume the home medications once they are confirmed. Monitor blood pressure closely. Prognosis extremely guarded because of multiple complex medical issues. Further recommendations to follow. MMODL / IJN: [id number] /
[2023-03-26] MEDS: OSELTAMIVIR 75 MG CAP PO SCH (23:31)
[2023-03-26] MEDS: NICOTINE 21MG/24HR PATCH TRANSDERM SCH (23:31)
[2023-03-26] MEDS: AZITHROMYCIN 500 MG TAB PO STA (23:37)
[2023-03-27] MEDS ORDERED: Potassium Replacement Protocol 1 EACH MISC MISCELLANE PRN (04:31)
[2023-03-27] MEDS: POTASSIUM CHLORIDE ER 20 MEQ TAB.ER PO SCH (05:19)
[2023-03-27] MEDS: HYDROcodone/APAP 5-325MG 1 EACH TAB PO PRN (05:56)
[2023-03-27] MEDS: AZITHROMYCIN 250 MG TAB PO SCH (08:27)
[2023-03-27] MEDS: PANTOPRAZOLE 40 MG TABLET PO SCH (08:28)
[2023-03-27 10:18] LABS: Basophils % (A) 0 %; Eosinophils % (A) 0 %; HGB 15.9 gm/dL (13.0-17.5); Lymphocytes # (A) 0.4 k/uL (1.0-4.8); Lymphocytes % (A) 3 %; MCH 29.9 pg (25.0-35.0); MCHC 35.3 g/dL (31.0-37.0); MCV 84.8 fL (80.0-100.0); Mean Platelet Volume 7.9; Monocytes # (A) 0.5 k/uL (0-1.0); Monocytes % (A) 4 %; Neutrophils # (A) 10.9 k/uL (1.3-7.7); Neutrophils % (A) 92 %; Platelet Count 176 k/uL (150-450); RBC 5.31 m/uL (4.30-5.90); RDW 13.6 % (11.5-15.5); WBC 11.9 k/uL (3.8-10.6)
[2023-03-27 10:29] LABS: African American GFR (CKD) >90 (>60 ml/min/1.73 sqM); Anion Gap 9 mmol/L; Blood Urea Nitrogen 16 mg/dL (9-20); Calcium 8.9 mg/dL (8.4-10.2); Carbon Dioxide 22 mmol/L (22-30); Chloride 111 mmol/L (98-107); Glucose 130 mg/dL (74-99); Non-African American GFR(CKD) >90 (>60 ml/min/1.73 sqM); Potassium 4.2 mmol/L (3.5-5.1); Sodium 142 mmol/L (137-145)
--- NOTE | 2023-03-27 11:41 | P.PN ---
Subjective Progress Note Date: 03/27/23 Principal diagnosis: Reason for follow-up is acute influenza A question of pneumonia Patient is a 37-year-old male with a past medical history significant for hypertension hyperlipidemia asthma COPD reflux history of hepatitis C s/p treatment patient presenting to the hospital for evaluation of increasing shortness of breath and cough sore throat, patient did tested positive for influenza also did have a fever elevated white count and hypoxemia. On today's evaluation that is 03/27/2023, the patient did have resolution of his fever and is afebrile this morning, patient is on 6 L nasal cannula oxygen, the patient denies chest pain shortness of breath denies any worsening cough or sputum production, patient denies nausea no vomiting no abdominal pain and no diarrhea has been reported. Patient white count is down to 11.9, creatinine 0.56 procalcitonin 0.17 sputum culture requested not collected Objective - Vital Signs Vital signs: Vital Signs Temp 98.1 F 03/27/23 08:00 Pulse 100 03/27/23 08:00 Resp 16 03/27/23 08:00 BP 132/77 03/27/23 08:00 Pulse Ox 97 03/27/23 08:00 FiO2 Intake & Output 03/26/23 03/27/23 03/27/23 18:59 06:59 18:59 Intake Total 915 0 Output Total 275 Balance 640 0 Weight 68.039 kg 68.039 kg Intake: Intake, IV Titration 375 Amount Sodium Chloride 0.9% 1, 375 000 ml @ 75 mls/hr IV . [id number] [facility] Rx#:[id number] Oral 540 0 Output: Urine 275 - Exam GENERAL DESCRIPTION: Middle-age male lying in bed in no distress RESPIRATORY SYSTEM: Unlabored breathing , decreased intensity of breath sounds no wheeze HEART: S1 S2 regular rate and rhythm , ABDOMEN: Soft , no tenderness EXTREMITIES: No edema feet - Labs CBC & Chem 7: 03/27/23 09:23 03/27/23 09:23 Labs: Abnormal Lab Results - Last 24 Hours (Table) 03/26/23 03/26/23 03/26/23 Range/Units 11:39 11:39 11:39 WBC 14.6 H (3.8-10.6) k/uL Neutrophils # 13.7 H (1.3-7.7) k/uL Lymphocytes # 0.2 L (1.0-4.8) k/uL D-Dimer 2.16 H (<0.60) mg/L FEU Potassium 3.4 L (3.5-5.1) mmol/L Chloride (98-107) mmol/L Carbon Dioxide 21 L (22-30) mmol/L Creatinine (0.66-1.25) mg/dL Glucose 158 H (74-99) mg/dL Plasma Lactic Acid Arturo (0.7-2.0) mmol/L C-Reactive Protein (<1.0) mg/dL Procalcitonin (0.02-0.09) ng/mL Influenza Type A (PCR) (Not Detectd) 03/26/23 03/26/23 03/26/23 Range/Units 11:39 11:39 11:39 WBC (3.8-10.6) k/uL Neutrophils # (1.3-7.7) k/uL Lymphocytes # (1.0-4.8) k/uL D-Dimer (<0.60) mg/L FEU Potassium (3.5-5.1) mmol/L Chloride (98-107) mmol/L Carbon Dioxide (22-30) mmol/L Creatinine (0.66-1.25) mg/dL Glucose (74-99) mg/dL Plasma Lactic Acid Arturo 3.5 H* (0.7-2.0) mmol/L C-Reactive Protein 16.9 H (<1.0) mg/dL Procalcitonin (0.02-0.09) ng/mL Influenza Type A (PCR) Detected A (Not Detectd) 03/26/23 03/27/23 03/27/23 Range/Units 11:39 09:23 09:23 WBC 11.9 H (3.8-10.6) k/uL Neutrophils # 10.9 H (1.3-7.7) k/uL Lymphocytes # 0.4 L (1.0-4.8) k/uL D-Dimer (<0.60) mg/L FEU Potassium (3.5-5.1) mmol/L Chloride 111 H (98-107) mmol/L Carbon Dioxide (22-30) mmol/L Creatinine 0.56 L (0.66-1.25) mg/dL Glucose 130 H (74-99) mg/dL Plasma Lactic Acid Arturo (0.7-2.0) mmol/L C-Reactive Protein (<1.0) mg/dL Procalcitonin 0.17 H (0.02-0.09) ng/mL Influenza Type A (PCR) (Not Detectd) Assessment and Plan (1) Sepsis Current Visit: Yes Status: Acute Code(s): A41.9 - SEPSIS, UNSPECIFIED ORGANISM SNOMED Code(s): 15359338 (2) Pneumonia Current Visit: Yes Status: Acute Code(s): J18.9 - PNEUMONIA, UNSPECIFIED ORGANISM SNOMED Code(s): 913453590 (3) Influenza A Current Visit: Yes Status: Acute Code(s): J10.1 - FLU DUE TO OTH IDENT INFLUENZA VIRUS W OTH RESP MANIFEST SNOMED Code(s): 317386962 Plan: 1patient presented to hospital with sepsis in this patient who did have a fever tachycardia elevated white count source is likely acute influenza A and concerning for COPD exacerbation with tracheobronchitis/early pneumonia as the patient did have elevated white count and is bringing up some greenish sputum 2nursing staff has been stated again to obtain sputum for Gram stain culture, patient have mild elevated procalcitonin level 3patient to continue with Tamiflu 75 mg twice a day for 5 days 4patient to continue with Rocephin and Zithromax while waiting for the culture to finalize Dictation was produced using [employer] dictation software. please excuse any grammatical, word or spelling errors. Time with Patient: Less than 30
--- NOTE | 2023-03-27 12:12 | P.PN ---
Subjective Progress Note Date: 03/27/23 This is a 37-year-old male patient, a chronic smoker with known history of COPD, came into the emergency department having worsening shortness of breath. The patient generalized weakness, body aches, increased sore throat, cough and congestion and chest tightness and wheezing along with significant limitation in exercise capacity. 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 Noted he was being treated with antibiotics earlier given to him by his primary care physician. In the emergency, the patient checked positive for influenza A. The rest of the viral panel was negative. Chest x-ray was completed and the patient was found to have background COPD without any acute cardiopulmonary process. Similar findings were also identified on the CAT scan of the chest utilizing CTA protocol as the patient was found to have no evidence of any pulmonary embolism, no consolidation or airspace disease and the patient had emphysema with streaky areas of atelectasis and scarring. The patient accordingly was placed on oxygen and patient is currently on 62 total nasal cannula. He is also on bronchodil ators and steroids and Tamiflu. He was started also on broad-spectrum antibiotics with IV Rocephin. Noted the patient has no maintenance inhalers regarding his COPD. He utilizes a nebulizer and he has albuterol rescue inhaler with him at all times. No history of childhood asthma. No hemoptysis. No pleurisy. No edema lower extremities. No angina. 1 seconds at 14.6 with a hemoglobin of 17.3 and a platelet count of 197. D-dimer is at 2.1 and a CTA of the chest was negative. Lactic acid was at 3.5. BUN is at 12 with a creatinine of 0.7 and sodium levels of 140. Rest of the LFTs are essentially within normal limits. He is awake and alert and oriented and communicating at this point in time. On 03/27/2023, seen the patient for a follow-up. The patient is resting comfortably in bed. The patient is in acute stroke exacerbation secondary influenza A infection. The patient has no interval worsening shortness of breath. In fact he is feeling slightly improved compared to yesterday.He is currently on oxygen and 6 L O2 nasal cannula. WBC count 11.9 with a hemoglobin of 15.9 and a platelet count of 176. BUN is at 16 with a creatinine of 0.5 and a sodium levels of 142. No chest pain. No significant lower extremity edema. Remains on Tamiflu. The antibiotic coverage is essentially empiric and the patient is currently on a combination of Rocephin and Zithromax. Rest of the home medication has been resumed. The patient is also on nicotine patch. Objective - Vital Signs Vital signs: Vital Signs Temp 98.1 F 03/27/23 08:00 Pulse 100 03/27/23 08:00 Resp 16 03/27/23 08:00 BP 132/77 03/27/23 08:00 Pulse Ox 97 03/27/23 08:00 FiO2 Intake & Output 03/26/23 03/27/23 03/27/23 18:59 06:59 18:59 Intake Total 915 0 Output Total 275 Balance 640 0 Weight 68.039 kg 68.039 kg Intake: Intake, IV Titration 375 Amount Sodium Chloride 0.9% 1, 375 000 ml @ 75 mls/hr IV . [id number] [facility] Rx#:[id number] Oral 540 0 Output: Urine 275 - Exam General appearance the patient is a mild degree of respiratory distress. Not using accessory muscles of breathing and the patient is currently on 6 L O2 nasal cannula head exam was generally normal. There was no scleral icterus or corneal arcus. Mucous membranes were moist. Neck was supple and without jugular venous distension, thyromegaly, or carotid bruits. Carotids were easily palpable bilaterally. There was no adenopathy. Lung sounds are diminished bilaterally and the patient has scant expiratory wheezes heard throughout the lung xavier Cardiac exam revealed the PMI to be normally situated and sized. The rhythm was regular and no extrasystoles were noted during several minutes of auscultation. The first and second heart sounds were normal and physiologic splitting of the second heart sound was noted. There were no murmurs, rubs, clicks, or gallops. Abdominal exam revealed normal bowel sounds. The abdomen was soft, non-tender, and without masses, organomegaly, or appreciable enlargement of the abdominal aorta. Examination of the extremities revealed easily palpable radial, femoral and pedal pulses. There was no cyanosis, clubbing or edema. Examination of the skin revealed no evidence of significant rashes, suspicious appearing nevi or other concerning lesions. Neurologically, the patient is awake and alert and the patient does not have any focal neurological deficit. Cranial nerves are essentially intact. - Labs CBC & Chem 7: 03/27/23 09:23 03/27/23 09:23 Labs: Abnormal Lab Results - Last 24 Hours (Table) 03/26/23 03/26/23 03/26/23 Range/Units 11:39 11:39 11:39 WBC 14.6 H (3.8-10.6) k/uL Neutrophils # 13.7 H (1.3-7.7) k/uL Lymphocytes # 0.2 L (1.0-4.8) k/uL D-Dimer 2.16 H (<0.60) mg/L FEU Potassium 3.4 L (3.5-5.1) mmol/L Carbon Dioxide 21 L (22-30) mmol/L Glucose 158 H (74-99) mg/dL Plasma Lactic Acid Arturo (0.7-2.0) mmol/L C-Reactive Protein (<1.0) mg/dL Procalcitonin (0.02-0.09) ng/mL Influenza Type A (PCR) (Not Detectd) 03/26/23 03/26/23 03/26/23 Range/Units 11:39 11:39 11:39 WBC (3.8-10.6) k/uL Neutrophils # (1.3-7.7) k/uL Lymphocytes # (1.0-4.8) k/uL D-Dimer (<0.60) mg/L FEU Potassium (3.5-5.1) mmol/L Carbon Dioxide (22-30) mmol/L Glucose (74-99) mg/dL Plasma Lactic Acid Arturo 3.5 H* (0.7-2.0) mmol/L C-Reactive Protein 16.9 H (<1.0) mg/dL Procalcitonin (0.02-0.09) ng/mL Influenza Type A (PCR) Detected A (Not Detectd) 03/26/23 03/27/23 Range/Units 11:39 09:23 WBC 11.9 H (3.8-10.6) k/uL Neutrophils # 10.9 H (1.3-7.7) k/uL Lymphocytes # 0.4 L (1.0-4.8) k/uL D-Dimer (<0.60) mg/L FEU Potassium (3.5-5.1) mmol/L Carbon Dioxide (22-30) mmol/L Glucose (74-99) mg/dL Plasma Lactic Acid Arturo (0.7-2.0) mmol/L C-Reactive Protein (<1.0) mg/dL Procalcitonin 0.17 H (0.02-0.09) ng/mL Influenza Type A (PCR) (Not Detectd) Assessment and Plan Plan: Acute exacerbation of COPD secondary to influenza A infection. Chest x-ray and CTA of the chest shows no evidence of any pneumonia. Acute influenza syndrome with influenza A infection, currently on Tamiflu. The patient is not vaccinated. Acute febrile illness secondary to above Constitutional symptoms along with generalized weakness and fatigue and bodyaches secondary to acute viral syndrome secondary to influenza A. Acute hypoxic respiratory failure and the patient is currently on 6 L O2 nasal cannula Chronic smoker Hypertension Hyperlipidemia History of hepatitis C infection Plan Limited improvement compared to yesterday. No interval worsening in the overall respiratory status. Will continue the same treatment plan Supplement the patient with O2 to maintain a saturation above 90% currently on 6 L, wean FiO2 as tolerated to maintain saturation above 90% DuoNeb nebulizer treatments [id number] Symbicort 2 puffs twice a day as maintenance IV Solu-Medrol 60 mg every 6 hours Tamiflu Empiric antibiotic coverage with Rocephin although there is no clear indication for bacterial pneumonia Smoking cessation counseling Nicotine patch Tylenol for fever IV hydration with normal saline Will continue to follow.
--- NOTE | 2023-03-27 15:04 | CDI ---
Documentation Clarification Form Date: 03/27/2023 02:23:15 PM From: Sue Rojas rn, ccds Phone: [phone] Admit Date: 03/26/2023 02:08:00 PM Patient Name: Gustavo Rankin Visit Number: [id number] Discharge Date: ATTENTION: The Clinical Documentation Specialists (CDI) and [facility] Coding Staff appreciate your assistance in clarifying documentation. Please respond to the clarification below the line at the bottom and electronically sign. The CDI & [facility] Coding staff will review the response and follow-up if needed. Please note: Queries are made part of the Legal Health Record. If you have any questions, please contact the author of this message via ITS. Dr. Lee Russell The patient has Sepsis documented in the ID consult and subsequent progress notes. Based on this information and the findings below, is there an additional diagnosis that is clinically appropriate for this patient? History/Risk Factors: Asthma, COPD, GERD/Reflux, Hyperlipidemia, Hypertension Clinical Indicators: 37-year-old male ER on arrival to the ER the patient was noticed to be febrile temperature of 102.3 F patient was tachycardic and hypoxic with O2 sats of 89% on room air currently on 8 L high flow oxygen patient did have white count of 14.6 with a left shift creatinine 0.79 electrolytes has been normal. 03/26 WBC14.6, Neutrophils 13.7; Lactic acid: 3.5, C-Reactive Protein 16.9 Influenza Type A Detected Vitals signs: 150/85 139 27 99.6 89% RA, 102.3 134 26 91 % 5/L NC; 163/90 133 26 102.3 90% NC 03/26 -Chest x-ray obtained no localized consolidations or infiltrates. 2 CTA: No evidence of pulmonary embolism. Moderate emphysema with a background of streaky atelectasis/scarring. Treatment: Clinic Director/Counseling Department Chair O2 Sat's (titrate) Rocephin 2, 000 MG IVP 03/26 then 2 GM IVPB Q 24 HRS Zithromax 500 MG PO once then 250 MG PO DAILY Solu-Medrol 60 MG Q 6 HRS 03/26-03/27 Tamiflu 75 MG PO Q 12 HRS 03/26-03/27 03/26 ID Consult: presented to hospital with sepsis in this patient who did have a fever tachycardia elevated white count source is likely acute influenza A and concerning for COPD exacerbation with tracheobronchitis/early pneumonia as the patient did have elevated white count and is bringing up some greenish sputum. Is there an additional diagnosis that is clinically appropriate for this patient? [ ] Sepsis, source is likely acute influenza A, with tracheobronchitis, early pneumonia present on admission [ ] Sepsis ruled out [ ] Other, please specify [ ] Unable to determine SIRS Criteria: 2 or more of the following may indicate SIRS Temperature < 96.8F (36C) or > 101.0F (38.3C) Heart Rate > 90 bpm Respiratory Rate > 20 breaths/min or PaCO2 < 32 mmHg White Blood Cell Count > 12,000 or < 4,000 cells/mm3 or > 10% bands (Template Last Reviewed: February 2022) Sepsis, source is likely acute influenza A, with tracheobronchitis, early pneumonia present on admission MTDD
[2023-03-27] MEDS: IPRATROPIUM-ALBUTEROL 3 ML NEB INHALATION PRN (21:26)
--- NOTE | 2023-03-28 06:04 | PN ---
PROGRESS NOTE DATE OF SERVICE: 03/27/2023 SUBJECTIVE: This 37-year-old gentleman who was admitted with acute influenza A, also had bilateral pneumonia. Patient has COPD and asthma exacerbation and acute hypoxic respiratory failure. The patient has significant shortness of breath. The patient is on empiric antibiotics. Lactic acid was also high on admission. Flu A was positive. COVID-19 was negative. PAST MEDICAL HISTORY: Reviewed. REVIEW OF SYSTEMS: A 14-point review is negative except as mentioned earlier. CURRENT MEDICATIONS: Reviewed include Rocephin, DuoNeb, doses and rest of medications noted. PHYSICAL EXAMINATION: VITAL SIGNS: Pulse is 100, blood pressure 138/77, respirations 16, pulse ox 97% on 6 L. HEENT: Conjunctivae normal. NECK: n RESPIRATIONS: Bilateral scattered rhonchi. ABDOMEN: Soft. NERVOUS SYSTEM: No focal deficits. SKIN: No ulcer, rash, or bleeding. JOINTS: No active deforming arthropathy. LABORATORY DATA: WBC n, rest of the labs are noted. ASSESSMENT: 1. Acute influenza A as well as bilateral acute influenzae pneumonia with acute hypoxic respiratory failure. 2. Chronic obstructive pulmonary disease, acute exacerbation. 3. Elevated D-dimer with no evidence of any pulmonary embolism. 4. Increased WBC. 5. History of hypertension. 6. History of hyperlipidemia. 7. History of hepatitis C. 8. Multiple medical issues. RECOMMENDATIONS: Recommended to continue current management. Continue with bronchodilators. Continue symptomatic treatment. Guarded prognosis. Further recommendations to follow. MMODL / IJN: [id number] / MTDD
[2023-03-28 08:03] LABS: Magnesium 2.3 mg/dL (1.6-2.3); Potassium 4.1 mmol/L (3.5-5.1)
--- NOTE | 2023-03-28 12:38 | P.PN ---
Subjective Progress Note Date: 03/28/23 This is a 37-year-old male patient, a chronic smoker with known history of COPD, came into the emergency department having worsening shortness of breath. The patient generalized weakness, body aches, increased sore throat, cough and congestion and chest tightness and wheezing along with significant limitation in exercise capacity. 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 Noted he was being treated with antibiotics earlier given to him by his primary care physician. In the emergency, the patient checked positive for influenza A. The rest of the viral panel was negative. Chest x-ray was completed and the patient was found to have background COPD without any acute cardiopulmonary process. Similar findings were also identified on the CAT scan of the chest utilizing CTA protocol as the patient was found to have no evidence of any pulmonary embolism, no consolidation or airspace disease and the patient had emphysema with streaky areas of atelectasis and scarring. The patient accordingly was placed on oxygen and patient is currently on 62 total nasal cannula. He is also on bronchodil ators and steroids and Tamiflu. He was started also on broad-spectrum antibiotics with IV Rocephin. Noted the patient has no maintenance inhalers regarding his COPD. He utilizes a nebulizer and he has albuterol rescue inhaler with him at all times. No history of childhood asthma. No hemoptysis. No pleurisy. No edema lower extremities. No angina. 1 seconds at 14.6 with a hemoglobin of 17.3 and a platelet count of 197. D-dimer is at 2.1 and a CTA of the chest was negative. Lactic acid was at 3.5. BUN is at 12 with a creatinine of 0.7 and sodium levels of 140. Rest of the LFTs are essentially within normal limits. He is awake and alert and oriented and communicating at this point in time. On 03/27/2023, seen the patient for a follow-up. The patient is resting comfortably in bed. The patient is in acute stroke exacerbation secondary influenza A infection. The patient has no interval worsening shortness of breath. In fact he is feeling slightly improved compared to yesterday.He is currently on oxygen and 6 L O2 nasal cannula. WBC count 11.9 with a hemoglobin of 15.9 and a platelet count of 176. BUN is at 16 with a creatinine of 0.5 and a sodium levels of 142. No chest pain. No significant lower extremity edema. Remains on Tamiflu. The antibiotic coverage is essentially empiric and the patient is currently on a combination of Rocephin and Zithromax. Rest of the home medication has been resumed. The patient is also on nicotine patch. On today's evaluation of 03/28/2023, seen the patient for a follow-up. Clinically the patient is doing better compared to yesterday. No specific complaints. Oxygenation is improved and the patient has been weaned down to 3 L of O2 nasal cannula. No fever. No chills. No chest pain. No other new complaints otherwise for now. The patient remains on IV Solu-Medrol 60 mg every 6 hours. The patient remains on bronchodilators.The empiric antibiotic coverage is still. No new labs from today. Legionella urine antigen has been negative. Objective - Vital Signs Vital signs: Vital Signs Temp 98.3 F 03/28/23 04:00 Pulse 99 03/28/23 04:00 Resp 19 03/28/23 04:00 BP 137/79 03/28/23 04:00 Pulse Ox 96 03/28/23 08:12 FiO2 Intake & Output 03/27/23 03/28/23 03/28/23 18:59 06:59 18:59 Intake Total 240 Output Total 200 Balance 240 -200 Intake: Oral 240 Output: Urine 200 Other: # Voids 2 - Exam General appearance the patient is a mild degree of respiratory distress. Not using accessory muscles of breathing and the patient is currently on 3 L O2 nasal cannula head exam was generally normal. There was no scleral icterus or corneal arcus. Mucous membranes were moist. Neck was supple and without jugular venous distension, thyromegaly, or carotid bruits. Carotids were easily palpable bilaterally. There was no adenopathy. Lung sounds are diminished bilaterally and the patient has scant expiratory wheezes heard throughout the lung xavier Cardiac exam revealed the PMI to be normally situated and sized. The rhythm was regular and no extrasystoles were noted during several minutes of auscultation. The first and second heart sounds were normal and physiologic splitting of the second heart sound was noted. There were no murmurs, rubs, clicks, or gallops. Abdominal exam revealed normal bowel sounds. The abdomen was soft, non-tender, and without masses, organomegaly, or appreciable enlargement of the abdominal aorta. Examination of the extremities revealed easily palpable radial, femoral and pedal pulses. There was no cyanosis, clubbing or edema. Examination of the skin revealed no evidence of significant rashes, suspicious a ppearing nevi or other concerning lesions. Neurologically, the patient is awake and alert and the patient does not have any focal neurological deficit. Cranial nerves are essentially intact. - Labs CBC & Chem 7: 03/27/23 09:23 03/28/23 07:17 Labs: Abnormal Lab Results - Last 24 Hours (Table) 03/27/23 03/27/23 Range/Units 09:23 09:23 WBC 11.9 H (3.8-10.6) k/uL Neutrophils # 10.9 H (1.3-7.7) k/uL Lymphocytes # 0.4 L (1.0-4.8) k/uL Chloride 111 H (98-107) mmol/L Creatinine 0.56 L (0.66-1.25) mg/dL Glucose 130 H (74-99) mg/dL Assessment and Plan Plan: Acute exacerbation of COPD secondary to influenza A infection. Chest x-ray and CTA of the chest shows no evidence of any pneumonia. The patient is clinically improving. Acute influenza syndrome with influenza A infection, currently on Tamiflu. The patient is not vaccinated. Acute febrile illness secondary to above Constitutional symptoms along with generalized weakness and fatigue and bodyaches secondary to acute viral syndrome secondary to influenza A. Acute hypoxic respiratory failure and the patient is currently on 6 L O2 nasal cannula Chronic smoker Hypertension Hyperlipidemia History of hepatitis C infection Plan Clinically improving compared to yesterday there has been clinical improvement in the oxygenation the patient is currently down to 3 L of oxygen by nasal cannula. Will continue the same treatment plan for now. Repeat labs in the morning DuoNeb nebulizer treatments [id number] Symbicort 2 puffs twice a day as maintenance IV Solu-Medrol 60 mg every 6 hours Tamiflu Empiric antibiotic coverage with Rocephin although there is no clear indication for bacterial pneumonia Smoking cessation counseling Nicotine patch Tylenol for fever IV hydration with normal saline Will continue to follow.
--- NOTE | 2023-03-28 15:03 | P.PN ---
Subjective Progress Note Date: 03/28/23 This is a pleasant 37-year-old male who was recently admitted with shortness of breath and also found to have bilateral pneumonia with COPD and asthma exacerbation with acute hypoxic respiratory failure being closely monitored with pulmonary following. Patient was also found to be acute influenza A positive and has been on Tamiflu. Patient is receiving empiric antibiotics along with IV steroids and breathing inhalational treatments. Patient was requiring oxygen and currently weaning recommend wean FiO2 as tolerated. Will have nursing staff evaluate for home O2 if requiring it closer to discharge. Patient is afebrile with no reported chest pain or worsening shortness of breath. Patient reports he has been titrating the oxygen himself and has been up and to the bathroom without oxygen. Patient is slightly dyspneic with exertion. Review of systems: Constitutional: No reports of fatigue, fever, or chills Cardiovascular: No reports of chest pain or palpitations Respiratory: No reports of shortness of breath or cough GI: reports of nausea, no reports of of vomiting, : No reports of dysuria or retention Neurovascular: reports of generalized weakness, All medications have been reviewed PHYSICAL EXAMINATION: GENERAL: The patient is alert and oriented x4, Well developed, well nourished. HEENT: Pupils are round and equally reacting to light. EOMI. no scleral icterus. No conjunctival pallor. Normocephalic, atraumatic. No pharyngeal erythema. No thyromegaly. CARDIOVASCULAR: S1 and S2 muffled PULMONARY: diminished breath sounds bilaterally with no wheezing or rhonchi no adrian. ABDOMEN: soft. Nontender on exam. obese. non-distended, normoactive bowel sounds. No palpable organomegaly. MUSCULOSKELETAL: No joint swelling or deformity. EXTREMITIES: No cyanosis, clubbing, or pedal edema. NEUROLOGICAL: Gross neurological examination did not reveal any focal deficits. Diffuse weakness SKIN: No rashes. Assessment: Sepsis, present on admission likely secondary to acute influenza with tracheobronchitis and bilateral influenza pneumonia, present on admission Acute hypoxic respiratory failure secondary to above Chronic obstructive pulmonary disease, acute exacerbation Elevated D-dimer, PE ruled out GERD Leukocytosis likely secondary to assessment #1 History of hypertension History of hyperlipidemia History of hepatitis C History of emphysema Continued ongoing nicotine dependence including vaping THC use GI prophylaxis DVT prophylaxis Full code Plan: Recommend to continue with current medications and management with pulmonary following as well as infectious disease. Patient is continued on antibiotics in the form of ceftriaxone, Zithromax, as well as Tamiflu for acute influenza A infection Patient is continued on IV steroids as well as breathing inhalational treatments Patient currently on 2 to 3 L via nasal cannula and recommend to wean FiO2 as to lerated. Patient does not wear oxygen in the outpatient setting. Complete tobacco cessation has been extensively counseled as well as vaping Encouraged increase activity as tolerated. Encourage incentive spirometer and to continue using at least 10 times every hour while awake Will discuss further with pulmonary on discharge planning and possible discharge in 24 to 48 hours The impression and plan of care has been dictated by Kanika Huynh, nurse practitioner as directed. Dr. Drew MD I have performed a history and examination and MDM of this patient, discussed the same with the dictator, and agree with the dictator's assessment and plan as written ,documented as a scribe. Based on total visit time, I have performed more than 50% of the visit. Any additional findings or plans will be noted. Objective - Vital Signs Vital signs: Vital Signs Temp 98.3 F 03/28/23 04:00 Pulse 109 H 03/28/23 12:00 Resp 18 03/28/23 12:00 BP 162/96 03/28/23 12:00 Pulse Ox 93 L 03/28/23 12:00 FiO2 Intake & Output 03/27/23 03/28/23 03/28/23 18:59 06:59 18:59 Intake Total 240 120 Output Total 200 Balance 240 -200 120 Intake: Oral 240 120 Output: Urine 200 Other: # Voids 2 0 # Bowel Movements 0 - Labs CBC & Chem 7: 03/27/23 09:23 03/28/23 07:17
[2023-03-28] MEDS: ALBUTEROL NEBULIZED 2.5 MG/3 ML INHALATION PRN (15:42)
--- NOTE | 2023-03-28 16:02 | P.PN ---
Subjective Progress Note Date: 03/28/23 Principal diagnosis: Reason for follow-up is acute influenza A question of pneumonia Patient is a 37-year-old male with a past medical history significant for hypertension hyperlipidemia asthma COPD reflux history of hepatitis C s/p treatment patient presenting to the hospital for evaluation of increasing shortness of breath and cough sore throat, patient did tested positive for influenza also did have a fever elevated white count and hypoxemia. On today's evaluation that is 03/27/2023, the patient is afebrile, patient is on 3 L nasal cannula oxygen, the patient denies chest pain shortness of breath cough and sputum production has decreased in intensity, patient denies nausea no vomiting no abdominal pain and no diarrhea has been reported. Patient white count is down to 11.9, creatinine 0.56 sputum not collected Objective - Vital Signs Vital signs: Vital Signs Temp 98.3 F 03/28/23 04:00 Pulse 100 03/28/23 15:58 Resp 18 03/28/23 14:00 BP 162/96 03/28/23 12:00 Pulse Ox 93 L 03/28/23 12:00 FiO2 Intake & Output 03/27/23 03/28/23 03/28/23 18:59 06:59 18:59 Intake Total 240 120 Output Total 200 Balance 240 -200 120 Intake: Oral 240 120 Output: Urine 200 Other: # Voids 2 0 # Bowel Movements 0 - Exam GENERAL DESCRIPTION: Middle-age male lying in bed in no distress RESPIRATORY SYSTEM: Unlabored breathing , decreased intensity of breath sounds no wheeze HEART: S1 S2 regular rate and rhythm , ABDOMEN: Soft , no tenderness EXTREMITIES: No edema feet - Labs CBC & Chem 7: 03/27/23 09:23 03/28/23 07:17 Assessment and Plan (1) Sepsis Current Visit: Yes Status: Acute Code(s): A41.9 - SEPSIS, UNSPECIFIED ORGANISM SNOMED Code(s): 40166562 (2) Pneumonia Current Visit: Yes Status: Acute Code(s): J18.9 - PNEUMONIA, UNSPECIFIED ORGANISM SNOMED Code(s): 034506880 (3) Influenza A Current Visit: Yes Status: Acute Code(s): J10.1 - FLU DUE TO OTH IDENT INFLUENZA VIRUS W OTH RESP MANIFEST SNOMED Code(s): 342223145 Plan: 1patient presented to hospital with sepsis in this patient who did have a fever tachycardia elevated white count source is likely acute influenza A and concerning for COPD exacerbation with tracheobronchitis/early pneumonia as the patient did have elevated white count and is bringing up some greenish sputum 2 patient have mild elevated procalcitonin level, sputum still not collected 3patient to continue with Tamiflu 75 mg twice a day for 5 days 4patient to continue with Rocephin and Zithromax in view of clinical response and monitor clinical course closely Dictation was produced using [employer] dictation software. please excuse any grammatical, word or spelling errors.
[2023-03-29 06:28] VITALS: RESP 16
[2023-03-29 10:03] VITALS: BP 143/78; PULSE 90; TEMP 97.6
--- NOTE | 2023-03-29 10:33 | XR ---
EXAMINATION TYPE: XR chest 1V portable DATE OF EXAM: 03/29/2023 COMPARISON: 03/26/2023 HISTORY: Shortness of breath TECHNIQUE: Single frontal view of the chest is obtained. FINDINGS: Hyperexpansion of the lungs with segmental atelectasis or scarring stable left lower lobe. No pleural effusion or pneumothorax. Underlying COPD. Heart size normal. Osseous structures intact. IMPRESSION: No acute process. Chronic basilar atelectasis or scarring. Correlate for COPD
--- NOTE | 2023-03-29 11:22 | P.PN ---
Subjective Progress Note Date: 03/29/23 This is a 37-year-old male patient, a chronic smoker with known history of COPD, came into the emergency department having worsening shortness of breath. The patient generalized weakness, body aches, increased sore throat, cough and congestion and chest tightness and wheezing along with significant limitation in exercise capacity. 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 Noted he was being treated with antibiotics earlier given to him by his primary care physician. In the emergency, the patient checked positive for influenza A. The rest of the viral panel was negative. Chest x-ray was completed and the patient was found to have background COPD without any acute cardiopulmonary process. Similar findings were also identified on the CAT scan of the chest utilizing CTA protocol as the patient was found to have no evidence of any pulmonary embolism, no consolidation or airspace disease and the patient had emphysema with streaky areas of atelectasis and scarring. The patient accordingly was placed on oxygen and patient is currently on 62 total nasal cannula. He is also on bronchodil ators and steroids and Tamiflu. He was started also on broad-spectrum antibiotics with IV Rocephin. Noted the patient has no maintenance inhalers regarding his COPD. He utilizes a nebulizer and he has albuterol rescue inhaler with him at all times. No history of childhood asthma. No hemoptysis. No pleurisy. No edema lower extremities. No angina. 1 seconds at 14.6 with a hemoglobin of 17.3 and a platelet count of 197. D-dimer is at 2.1 and a CTA of the chest was negative. Lactic acid was at 3.5. BUN is at 12 with a creatinine of 0.7 and sodium levels of 140. Rest of the LFTs are essentially within normal limits. He is awake and alert and oriented and communicating at this point in time. On 03/27/2023, seen the patient for a follow-up. The patient is resting comfortably in bed. The patient is in acute stroke exacerbation secondary influenza A infection. The patient has no interval worsening shortness of breath. In fact he is feeling slightly improved compared to yesterday.He is currently on oxygen and 6 L O2 nasal cannula. WBC count 11.9 with a hemoglobin of 15.9 and a platelet count of 176. BUN is at 16 with a creatinine of 0.5 and a sodium levels of 142. No chest pain. No significant lower extremity edema. Remains on Tamiflu. The antibiotic coverage is essentially empiric and the patient is currently on a combination of Rocephin and Zithromax. Rest of the home medication has been resumed. The patient is also on nicotine patch. On today's evaluation of 03/28/2023, seen the patient for a follow-up. Clinically the patient is doing better compared to yesterday. No specific complaints. Oxygenation is improved and the patient has been weaned down to 3 L of O2 nasal cannula. No fever. No chills. No chest pain. No other new complaints otherwise for now. The patient remains on IV Solu-Medrol 60 mg every 6 hours. The patient remains on bronchodilators.The empiric antibiotic coverage is still. No new labs from today. Legionella urine antigen has been negative. On today's evaluation of 03/29/2023, I am seeing the patient for a follow-up. The patient is doing well. The patient is currently on room air oxygen. Denies having any respiratory distress. Cough and congestion has subsided. Wheezing is also subsided. While on room air oxygen, the patient is able to maintain a pulse ox of around 90 to 94%. He is afebrile. Tachycardia is also improved. Breathing is nonlabored. He remains on DuoNeb updrafts and IV Solu-Medrol. He is also on nicotine patch. He remains on Rocephin and Zithromax. In terms of his labs, no recent labs are obtained in this patient. Objective - Vital Signs Vital signs: Vital Signs Temp 98.1 F 03/29/23 05:00 Pulse 99 03/29/23 05:00 Resp 16 03/29/23 05:00 BP 133/80 03/29/23 05:00 Pulse Ox 90 L 03/29/23 05:00 FiO2 Intake & Output 03/28/23 03/29/23 03/29/23 18:59 06:59 18:59 Intake Total 360 Balance 360 Intake: Oral 360 Other: Voiding Method Toilet # Voids 2 2 # Bowel Movements 0 - Exam General appearance the patient is a mild degree of respiratory distress. Not using accessory muscles of breathing and the patient is currently on 3 L O2 nasal cannula head exam was generally normal. There was no scleral icterus or corneal arcus. Mucous membranes were moist. Neck was supple and without jugular venous distension, thyromegaly, or carotid bruits. Carotids were easily palpable bilaterally. There was no adenopathy. Lung sounds are diminished bilaterally and the patient has scant expiratory wheezes heard throughout the lung xavier Cardiac exam revealed the PMI to be normally situated and sized. The rhythm was regular and no extrasystoles were noted during several minutes of auscultation. The first and second heart sounds were normal and physiologic splitting of the second heart sound was noted. There were no murmurs, rubs, clicks, or gallops. Abdominal exam revealed normal bowel sounds. The abdomen was soft, non-tender, and without masses, organomegaly, or appreciable enlargement of the abdominal aorta. Examination of the extremities revealed easily palpable radial, femoral and pedal pulses. There was no cyanosis, clubbing or edema. Examination of the skin revealed no evidence of significant rashes, suspicious appearing nevi or other concerning lesions. Neurologically, the patient is awake and alert and the patient does not have any focal neurological deficit. Cranial nerves are essentially intact. - Labs CBC & Chem 7: 03/27/23 09:23 03/28/23 07:17 Labs: Microbiology - Last 24 Hours (Table) 03/28/23 21:06 Gram Stain - Preliminary Sputum Assessment and Plan Plan: Acute exacerbation of COPD secondary to influenza A infection. Chest x-ray and CTA of the chest shows no evidence of any pneumonia. The patient is clinically improving and the patient continues to show ongoing signs of improvement. Acute influenza syndrome with influenza A infection, currently on Tamiflu. The patient is not vaccinated. Acute febrile illness secondary to above, currently afebrile Constitutional symptoms along with generalized weakness and fatigue and bodyaches secondary to acute viral syndrome secondary to influenza A, improved Acute hypoxic respiratory failure and the patient is currently on room air oxygen and oxygenation is improved Chronic smoker Hypertension Hyperlipidemia History of hepatitis C infection Plan Clinically improving and the patient's FiO2 is currently weaned down to room air oxygen DuoNeb nebulizer treatments [id number] Symbicort 2 puffs twice a day as maintenance IV Solu-Medrol 60 mg every 6 hours, and switch this patient to prednisone burst taper at time of discharge Tamiflu, completed 5-day course Discontinue antibiotics Smoking cessation counseling Nicotine patch Tylenol for fever Potential discharge home today with Symbicort maintenance, albuterol updrafts, prednisone burst taper and completing course of Tamiflu, a total of 5-day course. Patient is to be followed up on outpatient basis.
--- NOTE | 2023-03-29 18:47 | P.DS ---
Providers Date of admission: 03/26/23 14:08 Expected date of discharge: 03/29/23 Attending physician: Lee Russell Consults: 03/26/23 14:39 Consult Physician Urgent Consulting Provider: Marissa Sanchez Consult Reason/Comments: Influenza A, hypoxia Do you want consulting provider notified?: Yes 03/26/23 15:31 Consult Physician Routine Consulting Provider: Shireen Duvall Consult Reason/Comments: flu Do you want consulting provider notified?: Yes Primary care physician: [facility] Course: Final diagnosis Sepsis, present on admission likely secondary to acute influenza with tracheobronchitis and bilateral influenza pneumonia, present on admission Acute hypoxic respiratory failure secondary to above Chronic obstructive pulmonary disease, acute exacerbation Elevated D-dimer, PE ruled out GERD Leukocytosis likely secondary to assessment #1, improving History of hypertension History of hyperlipidemia History of hepatitis C History of emphysema Continued ongoing nicotine dependence including vaping THC use GI prophylaxis DVT prophylaxis Full code Discharge disposition Patient is being discharged in a stable condition with guarded prognosis to home [place] [facility]. Patient will follow-up with in the outpatient setting upon discharge. Patient is to continue with Tamiflu, oral prednisone taper, Ceftin with close outpatient follow-up with pulmonary as scheduled. Total time taken is greater than 35 minutes. Hospital course This is a 37-year-old male who was recently admitted with continued shortness of breath with features of sepsis likely secondary to acute influenza infection and concerns of tracheobronchitis. Patient maintained on antibiotics along with Tamiflu with infectious disease and pulmonary following. Patient initially hy poxic requiring oxygen although has weaned off oxygen and on room air. Patient will continue with Tamiflu and Ceftin along with a prednisone taper to complete the course. Complete smoking cessation discussed. Patient to follow-up with pulmonary outpatient. Please refer to other consultation notes for further HPI. Currently no reports of chest pain, shortness of breath, or palpitations. Patient is afebrile. No reports of nausea or vomiting and patient is tolerating diet. Patient will be discharged home with guarded prognosis today. Physical exam: Gen: This is a 37-year-old male who is awake, alert and oriented x 3, well- developed, well-nourished HEENT: Head is atraumatic, normocephalic. Pupils equal, round. Sclerae is anicteric. NECK: Supple. No JVD. No lymphadenopathy. No thyromegaly. LUNGS: Diminished breath sounds bilaterally with some scattered rhonchi. No intercostal retractions. HEART: Regular rate and rhythm. No murmur. ABDOMEN: Soft. Bowel sounds are present. No masses. No tenderness. EXTREMITIES: No pedal edema. No calf tenderness. NEUROLOGICAL: Patient is awake, alert and oriented x3. Cranial nerves 2 through 12 are grossly intact. Please refer to medication reconciliation sheet for a list of medications. The impression and plan of care has been dictated by Kanika Huynh, Nurse Practitioner as directed. Dr. Drew MD I have performed a history and examination and MDM of this patient, discussed the same with the dictator, and agree with the dictator's assessment and plan as written ,documented as a scribe. Based on total visit time, I have performed more than 50% of the visit. Patient Condition at Discharge: Fair Plan - Discharge Summary Discharge Rx Participant: Yes New Discharge Prescriptions: New Nicotine 21Mg/24Hr Patch [Habitrol] 1 patch TRANSDERM DAILY #30 patch Ibuprofen [Motrin] 400 mg PO Q6HR PRN #20 tab PRN Reason: Mild Pain Or Fever > 100.5 Acetaminophen Tab [Tylenol] 650 mg PO Q6HR PRN tab PRN Reason: Mild Pain Or Fever > 100.5 predniSONE 10 mg PO DIRECTED #30 tab Oseltamivir [Tamiflu] 75 mg PO Q12HR 2 Days #4 cap Ipratropium-Albuterol Nebulize [Duoneb 0.5 mg-3 mg/3 ml Soln] 3 ml INHALATION RT-Q6H PRN each PRN Reason: Shortness Of Breath Budesonide-Formot 160-4.5 Mcg [Symbicort 160-4.5 Mcg Inhaler] 2 puff INHALATION RT-BID 30 Days #1 each cefUROXime axetiL [Ceftin] 500 mg PO BID 3 Days #6 tab Continue amLODIPine [Norvasc] 5 mg PO BID Esomeprazole Magnesium [NexIUM] 40 mg PO DAILY Albuterol Inhaler [Ventolin Hfa Inhaler] 2 puff INHALATION RT-Q6H PRN PRN Reason: Shortness Of Breath Changed Ipratropium-Albuterol Nebulize [Duoneb 0.5 mg-3 mg/3 ml Soln] 3 ml INHALATION RT-Q6H #100 each Discharge Medication List Albuterol Inhaler [Ventolin Hfa Inhaler] 2 puff INHALATION RT-Q6H PRN 02/21/21 [History] Esomeprazole Magnesium [NexIUM] 40 mg PO DAILY 02/21/21 [History] amLODIPine [Norvasc] 5 mg PO BID 07/20/22 [History] Acetaminophen Tab [Tylenol] 650 mg PO Q6HR PRN tab 03/29/23 [Rx] Budesonide-Formot 160-4.5 Mcg [Symbicort 160-4.5 Mcg Inhaler] 2 puff INHALATION RT-BID 30 Days #1 each 03/29/23 [Rx] Ibuprofen [Motrin] 400 mg PO Q6HR PRN #20 tab 03/29/23 [Rx] Ipratropium-Albuterol Nebulize [Duoneb 0.5 mg-3 mg/3 ml Soln] 3 ml INHALATION RT-Q6H #100 each 03/29/23 [Rx] Ipratropium-Albuterol Nebulize [Duoneb 0.5 mg-3 mg/3 ml Soln] 3 ml INHALATION RT-Q6H PRN each 03/29/23 [Rx] Nicotine 21Mg/24Hr Patch [Habitrol] 1 patch TRANSDERM DAILY #30 patch 03/29/23 [Rx] Oseltamivir [Tamiflu] 75 mg PO Q12HR 2 Days #4 cap 03/29/23 [Rx] cefUROXime axetiL [Ceftin] 500 mg PO BID 3 Days #6 tab 03/29/23 [Rx] predniSONE 10 mg PO DIRECTED #30 tab 03/29/23 [Rx] Follow up Appointment(s)/Referral(s): Ashli Olivera MD [Primary Care Provider] - 1-2 days (please call to schedule ) Marissa Sanchez MD [STAFF PHYSICIAN] - 1 Week (please call to schedule ) Patient Instructions/Handouts: Influenza (DC) Activity/Diet/Wound Care/Special Instructions: Activity limited until follow-up Follow-up with primary care provider on discharge Continue taking medications as prescribed Follow-up with pulmonary outpatient Continue complete tobacco cessation Continue incentive spirometer use 10 times every hour while awake Complete antibiotics and prednisone taper Complete 2 more days of Tamiflu to complete the course Discharge Disposition: HOME SELF-CARE
== END 2023-03-29 11:47 | disposition home or self-care (01) | DRG 871 ==
LOC: EC 10:52 → 3SCARD 14:08
PROVIDERS: ADMIT Hospitalist; ATTEND Hospitalist
DX: A41.89 Other specified sepsis (principal); J10.00 Influenza due to other identified influenza virus with unspecified type of pneumonia; J96.01 Acute respiratory failure with hypoxia; J44.1 Chronic obstructive pulmonary disease with (acute) exacerbation; J45.901 Unspecified asthma with (acute) exacerbation; J44.0 Chronic obstructive pulmonary disease with (acute) lower respiratory infection; I49.3 Ventricular premature depolarization; J43.9 Emphysema, unspecified; K21.9 Gastro-esophageal reflux disease without esophagitis; Z11.52 Encounter for screening for COVID-19; B19.20 Unspecified viral hepatitis C without hepatic coma; I10 Essential (primary) hypertension; F17.210 Nicotine dependence, cigarettes, uncomplicated; E78.5 Hyperlipidemia, unspecified; Z79.51 Long term (current) use of inhaled steroids; Z82.49 Family history of ischemic heart disease and other diseases of the circulatory system; Z87.01 Personal history of pneumonia (recurrent); Z59.6 Low income; Z79.899 Other long term (current) drug therapy; Z71.6 Tobacco abuse counseling; Z87.19 Personal history of other diseases of the digestive system; Z90.49 Acquired absence of other specified parts of digestive tract
CPT/HCPCS: 36415; 71045; 71046; 71275; 80048; 80053; 83605; 83735; 84132; 84145; 84484; 85025; 85379; 85610; 85730; 86140; 87070; 87205; 87449; 87636; 87651; 93005; 94640; 94760; 96361; 96374; 96375; 99284; 99406